=== PATIENT | female | born 1945 | race Caucasian/White ===

== ENCOUNTER 2017-11-19 22:54 | Emergency (ER) | payer MEDICARE, OTHER ==
[~2017-11-19] VITALS: Ht 160 cm; Wt 72.6 kg
[~2017-11-19 22:54] MED LIST: ACET325; ACET325 PO; ALBU90OI INH; ALBU90OI61 INH; ALLERGY RELIEF10 MG PO; ALLO100; ALPR.5 PO; AMOCLA500 PO; AMOCLA875 PO; BISA5EC PO; Bacid1 EACH PO; CALC.25 PO; CALCAVITD PO; CEFU250 PO; CEPH500 PO; CETI5 PO; CHOL10002; CHOL10002 PO; CIPR250 PO; CIPR500 PO; CYAN1000I IM; CYCL10 PO; DOCU100; DOCU100 PO; DOXY100 PO; DOXY100T53 PO; FENT50TP TOP; FLUO.025TO TOP; FURO40; FURO40 PO; GABA300 PO; GATI5OPSO OD; GUAI600T33 PO; Humalog100 UNIT/1; IBUP800 PO; INS70/30PN SC; INSDET100 SC; INSLI100I; INSU7030P; INSU7030P SC; INSU7030P SS; INSULANI; INSULANI SC; INSULANPEN SC; KETO15TC; LAVAP17G PO; LEVFLO250 PO; LEVFLO500 PO; LEVO750 PO; LEVOCETIRIZINE D5 MG PO; LEVOFLOXACIN500 MG PO; LIDO5TP TOP; LOSA50 PO; Lantus100 UNIT/1; METF850; METF850 PO; METH1TAB8 PO; METR500 PO; MINO100 PO; MONT10T; MORP15ER PO; MUPI2TO TOP; NITR100 PO; NYST100P TOP; NYSTATIN TRIAMC TP; NYSTATIN1 EAC1 TOP; NYSTRITC TOP; Norco 5-325 Ta1 EACH PO; Novolog100 UNIT/1 SC; OMEP20ER PO; ONDA4 PO; OXYACE5T PO; OXYC10ER; OXYC10ER PO; OXYC10TA19 PO; OXYC40ER PO; PANT40 PO; PARI1 PO; PENT400ER PO; PERCOCET PO; POTA10T; POTCHL10ER PO; PRED10; PRED10 PO; PREG50 PO; PREG75 PO; Pentoxifylline400 MG PO; Percocet PO; Perforomis20 MCG/2 M IH; Pletal PO; SACC250C PO; SENN187 PO; SILSUL1TC TOP; SPIR25 PO; SPIR50 PO; STOOL SOFTENER50 MG PO; SUPRAX400 MG PO; TIOT18 INH; TRAM50; VENL75; VENL75ER PO; Venlafaxine HCl75 MG PO; WARF3 PO; XYZAL5 MG PO
[2017-11-19] MEDS ORDERED: Pantoprazole So40 MG PO (23:23)
[2017-11-19] MEDS ORDERED: ASPI81CH PO (23:23)
[2017-11-19] MEDS ORDERED: ALBU90OI61 INH (23:24)
[2017-11-19 23:28] LABS: Source, Urine Catheter
[2017-11-19 23:42] LABS: BASOPHILS ABSOLUTE AUTO 0.02 K/mm3 (0.00-0.23); BASOPHILS PERCENT AUTO 0 % (0-2); EOSINOPHILS PERCENT AUTO 3 % (0-6); Hematocrit 43.5 % (33.0-51.0); Hemoglobin 13.9 g/dL (11.5-16.0); IMMATURE GRAN ABSOLUTE AUTO 0.02 K/mm3 (0.00-0.10); IMMATURE GRAN PERCENT AUTO 0 % (0-1); LYMPHOCYTES ABSOLUTE AUTO 1.77 K/mm3 (0.84-5.20); LYMPHOCYTES PERCENT AUTO 23 % (21-46); MONOCYTES PERCENT AUTO 5 % (4-13); Mean Corpuscular HGB 29.1 pg (26.0-34.0); Mean Corpuscular Volume 91 fL (80-100); NEUTROPHILS ABSOLUTE AUTO 5.47 K/mm3 (1.96-9.15); NEUTROPHILS PERCENT AUTO 69 % (41-73); Platelet Count 219 K/mm3 (150-400); RDW Coefficient Variation 13.9 % (11.7-14.2); RDW Standard Deviation 45.1 fL (35.1-46.3); Red Blood Cell Count 4.77 M/mm3 (3.80-5.20); White Blood Cell Count 7.88 K/mm3 (4.00-11.30)
[2017-11-19 23:44] LABS: Bilirubin, Urine Neg (Neg); Blood, Urine 4+ (Neg); Glucose Qualitative, Urine 3+ (Neg); Ketones, Urine Neg (Neg); Leukocyte Esterase, Urine 3+ (Neg); Nitrite, Urine Pos (Neg); Protein, Urine 2+ (Neg); Specific Gravity, Urine 1.015 (1.003-1.022); Urobilinogen, Urine NORM (Normal); pH, Urine 6.5 (5.0-8.0)
[2017-11-19 23:45] LABS: Appearance, Urine Hazy (Clear); Color, Urine Yellow (P-Yellow)
[2017-11-19 23:47] LABS: Albumin, Blood 3.3 g/dL (3.4-5.0); Albumin/Globulin Ratio 0.7 (0.8-1.8); Bilirubin, Total 0.3 mg/dL (0.1-1.0); Bun/Creatinine Ratio 29.7 (12.0-20.0); Calcium, Blood 9.1 mg/dL (8.5-10.1); Creatinine, Blood 1.11 mg/dL (0.40-1.00); Globulin, Blood 4.5 g/dL (2.2-4.0); Total Protein, Blood 7.8 g/dL (6.4-8.2)
[2017-11-19 23:57] LABS: Bacteria Many /hpf; Red Blood Cells, Urine 0-2 /hpf (0-2); Squamous Epithelial Cells Rare /hpf (Few); White Blood Cells, Urine TNTC /hpf (0-5)
[2017-11-20] MEDS ORDERED: CEPH500 PO (01:30)
[2018-04-25] MEDS ORDERED: Xyzal5 MG PO (13:58)
== END 2017-11-20 02:57 | disposition home or self-care (01) ==
LOC: ER 22:54
PROVIDERS: Emergency Medicine
DX: N39.0 Urinary tract infection, site not specified (principal); E11.9 Type 2 diabetes mellitus without complications; Z90.49 Acquired absence of other specified parts of digestive tract; Z90.710 Acquired absence of both cervix and uterus; Z87.891 Personal history of nicotine dependence; Z88.0 Allergy status to penicillin; Z88.8 Allergy status to other drugs, medicaments and biological substances; Z88.1 Allergy status to other antibiotic agents; Z79.4 Long term (current) use of insulin; Z79.82 Long term (current) use of aspirin; Z79.899 Other long term (current) drug therapy
CPT/HCPCS: 36415; 80053; 81001; 85025; 87077; 87086; 87186; 96365; 99283; J0696

== ENCOUNTER → 2017-11-23 | Outpatient (CLI) | payer MEDICARE, OTHER ==
[~2017-11-23] MED LIST changes: +ASPI81CH PO; +Aspirin EC81 MG PO; +BUME2 PO; +Bactrim Ds Tab1 EACH PO; +Biscolax10 MG PR; +FERRIC CITRATE210 MG PO; +FLUC100 PO; +HUMALOG KW200 UNIT/1; +INSU100I6 SC; +Milk Of Ma400 MG/5 M PO; +Pantoprazole So40 MG PO; +TRIM100 PO; +Xyzal5 MG PO
== END | disposition home or self-care (01) ==
LOC: LAB 16:26
DX: L03.116 Cellulitis of left lower limb (principal)
CPT/HCPCS: 87070; 87075; 87077; 87147; 87186; 87205

== ENCOUNTER 2017-11-27 18:48 | Inpatient (IN) | payer MEDICARE, OTHER ==
[~2017-11-27] VITALS: Ht 160 cm; Wt 84.4 kg
[~2017-11-27 18:48] MED LIST changes: -Aspirin EC81 MG PO; -BUME2 PO; -Bactrim Ds Tab1 EACH PO; -Biscolax10 MG PR; -FERRIC CITRATE210 MG PO; -FLUC100 PO; -HUMALOG KW200 UNIT/1; -INSU100I6 SC; -Milk Of Ma400 MG/5 M PO; -TRIM100 PO; -Xyzal5 MG PO
[2017-11-27 19:31] LABS: Source, Urine Catheter
[2017-11-27 19:32] LABS: BASOPHILS ABSOLUTE AUTO 0.04 K/mm3 (0.00-0.23); BASOPHILS PERCENT AUTO 1 % (0-2); EOSINOPHILS PERCENT AUTO 4 % (0-6); Hematocrit 43.9 % (33.0-51.0); Hemoglobin 13.9 g/dL (11.5-16.0); IMMATURE GRAN ABSOLUTE AUTO 0.02 K/mm3 (0.00-0.10); IMMATURE GRAN PERCENT AUTO 0 % (0-1); LYMPHOCYTES ABSOLUTE AUTO 1.81 K/mm3 (0.84-5.20); LYMPHOCYTES PERCENT AUTO 25 % (21-46); MONOCYTES ABSOLUTE AUTO 0.63 K/mm3 (0.16-1.47); MONOCYTES PERCENT AUTO 9 % (4-13); Mean Corpuscular HGB 28.9 pg (26.0-34.0); Mean Corpuscular HGB Conc 31.7 g/dL (31.5-36.5); Mean Corpuscular Volume 91 fL (80-100); Mean Platelet Volume 10.2 fL (9.1-12.4); NEUTROPHILS ABSOLUTE AUTO 4.44 K/mm3 (1.96-9.15); NEUTROPHILS PERCENT AUTO 61 % (41-73); Platelet Count 189 K/mm3 (150-400); RDW Coefficient Variation 13.9 % (11.7-14.2); RDW Standard Deviation 46.6 fL (35.1-46.3); Red Blood Cell Count 4.81 M/mm3 (3.80-5.20); White Blood Cell Count 7.24 K/mm3 (4.00-11.30)
[2017-11-27 19:33] LABS: Appearance, Urine Hazy (Clear); Bilirubin, Urine Neg (Neg); Blood, Urine 3+ (Neg); Color, Urine Yellow (P-Yellow); Glucose Qualitative, Urine 4+ (Neg); Ketones, Urine 1+ (Neg); Leukocyte Esterase, Urine 3+ (Neg); Nitrite, Urine Pos (Neg); Protein, Urine 1+ (Neg); Urobilinogen, Urine NORM (Normal)
[2017-11-27 19:50] LABS: Influenza A Negative (NEGATIVE); Influenza B Negative (NEGATIVE)
[2017-11-27 19:54] LABS: White Blood Cells, Urine 25-50 /hpf (0-5)
[2017-11-27 19:55] LABS: Bacteria Many /hpf; Squamous Epithelial Cells Rare /hpf (Few); Yeast/Fungi Urine Many /hpf
[2017-11-27 19:57] LABS: Albumin, Blood 3.1 g/dL (3.4-5.0); Albumin/Globulin Ratio 0.7 (0.8-1.8); Bilirubin, Total 0.4 mg/dL (0.1-1.0); Bun/Creatinine Ratio 31.7 (12.0-20.0); Creatinine, Blood 1.04 mg/dL (0.40-1.00); Globulin, Blood 4.4 g/dL (2.2-4.0); Potassium, Blood 5.6 mmol/L (3.5-5.5); Total Protein, Blood 7.5 g/dL (6.4-8.2)
[2017-11-28 04:52] LABS: BASOPHILS ABSOLUTE AUTO 0.04 K/mm3 (0.00-0.23); BASOPHILS PERCENT AUTO 1 % (0-2); EOSINOPHILS ABSOLUTE AUTO 0.17 K/mm3 (0.00-0.68); EOSINOPHILS PERCENT AUTO 2 % (0-6); Hematocrit 39.7 % (33.0-51.0); Hemoglobin 12.3 g/dL (11.5-16.0); IMMATURE GRAN ABSOLUTE AUTO 0.04 K/mm3 (0.00-0.10); IMMATURE GRAN PERCENT AUTO 1 % (0-1); LYMPHOCYTES PERCENT AUTO 21 % (21-46); MONOCYTES ABSOLUTE AUTO 0.48 K/mm3 (0.16-1.47); MONOCYTES PERCENT AUTO 6 % (4-13); Mean Corpuscular HGB 28.3 pg (26.0-34.0); Mean Corpuscular Volume 92 fL (80-100); NEUTROPHILS ABSOLUTE AUTO 5.62 K/mm3 (1.96-9.15); NEUTROPHILS PERCENT AUTO 70 % (41-73); Platelet Count 174 K/mm3 (150-400); RDW Coefficient Variation 13.4 % (11.7-14.2); RDW Standard Deviation 45.4 fL (35.1-46.3); Red Blood Cell Count 4.34 M/mm3 (3.80-5.20); White Blood Cell Count 8.05 K/mm3 (4.00-11.30)
[2017-11-28 05:33] LABS: Alanine Aminotransfer (ALT/SGP 18 U/L (12-78); Albumin, Blood 2.7 g/dL (3.4-5.0); Albumin/Globulin Ratio 0.7 (0.8-1.8); Alk Phos 107 U/L (50-136); Anion Gap 6 mmol/L (6-16); Aspartate Aminotrans (AST/SGOT 16 U/L (12-37); Bilirubin, Total 0.2 mg/dL (0.1-1.0); Blood Urea Nitrogen 29 mg/dL (8-24); Bun/Creatinine Ratio 30.5 (12.0-20.0); CO2, Blood 28 mmol/L (21-32); Chloride, Blood 106 mmol/L (98-108); Creatinine, Blood 0.95 mg/dL (0.40-1.00); Gentamicin, Peak 18.3 ug/mL (4.0-8.0); Globulin, Blood 3.8 g/dL (2.2-4.0); Glomerular Filtration Rate >60 (60-); Glucose, Blood 325 mg/dL (70-99); Potassium, Blood 4.1 mmol/L (3.5-5.5); Sodium, Blood 140 mmol/L (136-145); Total Protein, Blood 6.5 g/dL (6.4-8.2)
[2017-11-29 06:08] LABS: BASOPHILS ABSOLUTE AUTO 0.04 K/mm3 (0.00-0.23); BASOPHILS PERCENT AUTO 1 % (0-2); EOSINOPHILS ABSOLUTE AUTO 0.14 K/mm3 (0.00-0.68); EOSINOPHILS PERCENT AUTO 2 % (0-6); Hemoglobin 14.2 g/dL (11.5-16.0); IMMATURE GRAN ABSOLUTE AUTO 0.02 K/mm3 (0.00-0.10); IMMATURE GRAN PERCENT AUTO 0 % (0-1); LYMPHOCYTES ABSOLUTE AUTO 1.47 K/mm3 (0.84-5.20); LYMPHOCYTES PERCENT AUTO 17 % (21-46); MONOCYTES ABSOLUTE AUTO 0.54 K/mm3 (0.16-1.47); MONOCYTES PERCENT AUTO 6 % (4-13); Mean Corpuscular HGB Conc 32.3 g/dL (31.5-36.5); Mean Corpuscular Volume 90 fL (80-100); Mean Platelet Volume 10.1 fL (9.1-12.4); NEUTROPHILS ABSOLUTE AUTO 6.28 K/mm3 (1.96-9.15); NEUTROPHILS PERCENT AUTO 74 % (41-73); Platelet Count 210 K/mm3 (150-400); RDW Coefficient Variation 13.8 % (11.7-14.2); RDW Standard Deviation 44.9 fL (35.1-46.3); Red Blood Cell Count 4.89 M/mm3 (3.80-5.20); White Blood Cell Count 8.49 K/mm3 (4.00-11.30)
[2017-11-29 06:24] LABS: Bun/Creatinine Ratio 18.5 (12.0-20.0); Calcium, Blood 8.8 mg/dL (8.5-10.1); Creatinine, Blood 1.08 mg/dL (0.40-1.00); Potassium, Blood 3.7 mmol/L (3.5-5.5)
[2017-11-29 20:25] LABS: Vancomycin, Trough 16.4 ug/mL (5.0-10.0)
[2017-12-01] MEDS ORDERED: SPIR25 PO (15:00)
[2017-12-01] MEDS ORDERED: LEVFLO500 PO (15:01)
[2017-12-01] MEDS ORDERED: VENL75ER PO (15:01)
[2017-12-01 15:22] LABS: Bun/Creatinine Ratio 20.6 (12.0-20.0); Calcium, Blood 8.7 mg/dL (8.5-10.1); Creatinine, Blood 1.36 mg/dL (0.40-1.00); Potassium, Blood 3.9 mmol/L (3.5-5.5)
[2018-04-25] MEDS ORDERED: Xyzal5 MG PO (13:58)
== END 2017-12-01 18:25 | disposition home health service (06) | DRG 698 ==
LOC: ER 18:48 → MEDS 21:14 → PCU 21:14 → MEDS 11-28 01:31 → PCU 11-28 01:43 → MEDS 11-28 10:59 → ENPENDDIS 12-01 13:48 → MEDS 12-01 18:25
PROVIDERS: Emergency Medicine; Family Medicine; Hospitalist; Internal Medicine
DX: T83.511A Infection and inflammatory reaction due to indwelling urethral catheter, initial encounter (principal); A41.9 Sepsis, unspecified organism; G93.40 Encephalopathy, unspecified; L03.115 Cellulitis of right lower limb; E87.5 Hyperkalemia; E11.40 Type 2 diabetes mellitus with diabetic neuropathy, unspecified; E11.22 Type 2 diabetes mellitus with diabetic chronic kidney disease; L03.116 Cellulitis of left lower limb; N39.0 Urinary tract infection, site not specified; B95.8 Unspecified staphylococcus as the cause of diseases classified elsewhere; B95.2 Enterococcus as the cause of diseases classified elsewhere; B96.5 Pseudomonas (aeruginosa) (mallei) (pseudomallei) as the cause of diseases classified elsewhere; I12.9 Hypertensive chronic kidney disease with stage 1 through stage 4 chronic kidney disease, or unspecified chronic kidney disease; N18.3 Chronic kidney disease, stage 3 (moderate); E11.621 Type 2 diabetes mellitus with foot ulcer; L97.509 Non-pressure chronic ulcer of other part of unspecified foot with unspecified severity; F03.90 Unspecified dementia, unspecified severity, without behavioral disturbance, psychotic disturbance, mood disturbance, and anxiety; G89.4 Chronic pain syndrome; Z87.440 Personal history of urinary (tract) infections; Z88.1 Allergy status to other antibiotic agents; Z88.0 Allergy status to penicillin; Z88.8 Allergy status to other drugs, medicaments and biological substances; Z79.82 Long term (current) use of aspirin; Z79.4 Long term (current) use of insulin; Z79.899 Other long term (current) drug therapy; Z86.73 Personal history of transient ischemic attack (TIA), and cerebral infarction without residual deficits; Z86.718 Personal history of other venous thrombosis and embolism
CPT/HCPCS: 36415; 71046; 80048; 80053; 80170; 80202; 81001; 82947; 83036; 83605; 85025; 87040; 87077; 87086; 87184; 87186; 87804; 94760; 96365; 96366; 97116; 97162; 99285; G8978; G8979; J0690; J0692; J1580; J1650; J1815; J2405; J3370; J7030; J7050

== ENCOUNTER 2017-12-20 14:04 | Emergency (ER) | payer MEDICARE, OTHER ==
[~2017-12-20] VITALS: Ht 157.5 cm; Wt 86.2 kg
[2017-12-20 15:30] LABS: Calcium, Ionized (POC) 1.09 mmol/L (1.10-1.46); Chloride (POC) 101 mmol/L (98-108); Creatinine (POC) 1.4 mg/dL (0.6-1.0); Glucose (ISTAT POC) 237 mg/dL (70-99); Hemoglobin (POC) 13.9 g/dL (12.0-16.0); Potassium (POC) 4.5 mmol/L (3.5-5.5); Sodium (POC) 140 mmol/L (135-148); Total CO2 (POC) 29 mmol/L (21-32)
[2018-04-25] MEDS ORDERED: Xyzal5 MG PO (13:58)
== END 2017-12-20 17:33 | disposition home or self-care (01) ==
LOC: ER 14:04
PROVIDERS: Emergency Medicine
DX: M54.6 Pain in thoracic spine (principal); F03.90 Unspecified dementia, unspecified severity, without behavioral disturbance, psychotic disturbance, mood disturbance, and anxiety; L89.312 Pressure ulcer of right buttock, stage 2; L97.229 Non-pressure chronic ulcer of left calf with unspecified severity; E11.9 Type 2 diabetes mellitus without complications; Z88.0 Allergy status to penicillin; Z88.1 Allergy status to other antibiotic agents; Z88.8 Allergy status to other drugs, medicaments and biological substances; Z79.899 Other long term (current) drug therapy; Z79.82 Long term (current) use of aspirin; Z79.4 Long term (current) use of insulin; Z90.710 Acquired absence of both cervix and uterus; Z90.49 Acquired absence of other specified parts of digestive tract; Z87.891 Personal history of nicotine dependence; W19.XXXA Unspecified fall, initial encounter; Y93.E1 Activity, personal bathing and showering
CPT/HCPCS: 72072; 72100; 72125; 80047; 85014; 93005; 93010; 99284

== ENCOUNTER → 2018-02-03 | Outpatient (CLI) | payer MEDICARE, OTHER ==
[~2018-02-03] MED LIST changes: +INSUASPI SC; -Novolog100 UNIT/1 SC
== END | disposition home or self-care (01) ==
LOC: LAB SHORT 13:13 → OLS 13:13
DX: A49.01 Methicillin susceptible Staphylococcus aureus infection, unspecified site (principal)
CPT/HCPCS: 87070; 87077; 87147; 87186; 87205

== ENCOUNTER 2018-02-05 17:20 | Emergency (ER) | payer MEDICARE, OTHER ==
[~2018-02-05] VITALS: Ht 154.9 cm; Wt 90.7 kg
== END 2018-02-05 21:07 | disposition home or self-care (01) ==
LOC: ER 17:20
DX: S00.01XA Abrasion of scalp, initial encounter (principal); M25.552 Pain in left hip; E11.40 Type 2 diabetes mellitus with diabetic neuropathy, unspecified; E11.22 Type 2 diabetes mellitus with diabetic chronic kidney disease; N18.9 Chronic kidney disease, unspecified; K21.9 Gastro-esophageal reflux disease without esophagitis; F32.9 Major depressive disorder, single episode, unspecified; Z88.0 Allergy status to penicillin; Z88.1 Allergy status to other antibiotic agents; Z88.8 Allergy status to other drugs, medicaments and biological substances; Z79.899 Other long term (current) drug therapy; Z79.82 Long term (current) use of aspirin; Z79.4 Long term (current) use of insulin; Z87.891 Personal history of nicotine dependence; W01.0XXA Fall on same level from slipping, tripping and stumbling without subsequent striking against object, initial encounter; Y92.002 Bathroom of unspecified non-institutional (private) residence as the place of occurrence of the external cause
CPT/HCPCS: 36415; 70450; 72125; 73502; 93005; 93010; 99284

== ENCOUNTER 2018-03-01 14:14 | Emergency (ER) | payer MEDICARE, OTHER ==
[~2018-03-01] VITALS: Ht 167.6 cm; Wt 90.7 kg
[2018-03-01 15:22] LABS: BASOPHILS ABSOLUTE AUTO 0.03 K/mm3 (0.00-0.23); BASOPHILS PERCENT AUTO 0 % (0-2); EOSINOPHILS ABSOLUTE AUTO 0.45 K/mm3 (0.00-0.68); EOSINOPHILS PERCENT AUTO 4 % (0-6); Hematocrit 37.8 % (33.0-51.0); Hemoglobin 11.6 g/dL (11.5-16.0); IMMATURE GRAN ABSOLUTE AUTO 0.05 K/mm3 (0.00-0.10); IMMATURE GRAN PERCENT AUTO 1 % (0-1); LYMPHOCYTES ABSOLUTE AUTO 1.19 K/mm3 (0.84-5.20); LYMPHOCYTES PERCENT AUTO 12 % (21-46); MONOCYTES ABSOLUTE AUTO 0.61 K/mm3 (0.16-1.47); MONOCYTES PERCENT AUTO 6 % (4-13); Mean Corpuscular HGB 29.3 pg (26.0-34.0); Mean Corpuscular HGB Conc 30.7 g/dL (31.5-36.5); Mean Corpuscular Volume 96 fL (80-100); NEUTROPHILS ABSOLUTE AUTO 7.92 K/mm3 (1.96-9.15); NEUTROPHILS PERCENT AUTO 77 % (41-73); Platelet Count 239 K/mm3 (150-400); RDW Coefficient Variation 15.9 % (11.7-14.2); RDW Standard Deviation 54.2 fL (35.1-46.3); Red Blood Cell Count 3.96 M/mm3 (3.80-5.20); White Blood Cell Count 10.25 K/mm3 (4.00-11.30)
[2018-03-01 15:40] LABS: Albumin, Blood 3.4 g/dL (3.4-5.0); Albumin/Globulin Ratio 0.7 (0.8-1.8); Bilirubin, Total 0.3 mg/dL (0.1-1.0); Bun/Creatinine Ratio 36.6 (12.0-20.0); Creatinine, Blood 1.34 mg/dL (0.40-1.00); Globulin, Blood 4.7 g/dL (2.2-4.0); Potassium, Blood 4.1 mmol/L (3.5-5.5); Total Protein, Blood 8.1 g/dL (6.4-8.2)
== END 2018-03-01 16:55 | disposition home or self-care (01) ==
LOC: ER 14:14
PROVIDERS: Physician Assistant
DX: L89.152 Pressure ulcer of sacral region, stage 2 (principal); Z88.0 Allergy status to penicillin; Z88.1 Allergy status to other antibiotic agents; Z88.8 Allergy status to other drugs, medicaments and biological substances; Z79.899 Other long term (current) drug therapy; Z79.4 Long term (current) use of insulin; Z79.891 Long term (current) use of opiate analgesic; Z79.2 Long term (current) use of antibiotics; E11.40 Type 2 diabetes mellitus with diabetic neuropathy, unspecified; E11.22 Type 2 diabetes mellitus with diabetic chronic kidney disease; N18.9 Chronic kidney disease, unspecified; K21.9 Gastro-esophageal reflux disease without esophagitis; F32.9 Major depressive disorder, single episode, unspecified; Z87.891 Personal history of nicotine dependence
CPT/HCPCS: 36415; 80053; 82272; 82947; 85025; 93005; 93010; 99283

== ENCOUNTER → 2018-04-08 | Outpatient (CLI) | payer MEDICARE, OTHER ==
[2018-04-08 14:23] LABS: Appearance, Urine Turbid (Clear); Bilirubin, Urine Neg (Neg); Blood, Urine 5+ (Neg); Color, Urine Yellow (P-Yellow); Glucose Qualitative, Urine Neg (Neg); Ketones, Urine Neg (Neg); Leukocyte Esterase, Urine 3+ (Neg); Nitrite, Urine Pos (Neg); Protein, Urine 2+ (Neg); Urobilinogen, Urine NORM (Normal)
[2018-04-08 14:40] LABS: White Blood Cells, Urine 25-50 /hpf (0-5); Yeast/Fungi Urine Many /hpf
[2018-04-08 14:41] LABS: Bacteria Many /hpf; Red Blood Cells, Urine TNTC /hpf (0-2); Squamous Epithelial Cells Rare /hpf (Few)
== END ==
LOC: LAB SHORT 13:00 → LAB 13:00
DX: N39.0 Urinary tract infection, site not specified (principal)
CPT/HCPCS: 81001; 87077; 87086; 87186

== ENCOUNTER 2018-04-24 22:29 | Inpatient (IN) | payer MEDICARE, OTHER ==
[~2018-04-24] VITALS: Ht 157.5 cm; Wt 92.0 kg
[~2018-04-24 22:29] MED LIST changes: -INSUASPI SC; +Novolog100 UNIT/1
[2018-04-24 23:51] LABS: BASOPHILS ABSOLUTE AUTO 0.03 K/mm3 (0.00-0.23); BASOPHILS PERCENT AUTO 0 % (0-2); EOSINOPHILS ABSOLUTE AUTO 0.03 K/mm3 (0.00-0.68); EOSINOPHILS PERCENT AUTO 0 % (0-6); Hematocrit 38.1 % (33.0-51.0); IMMATURE GRAN ABSOLUTE AUTO 0.04 K/mm3 (0.00-0.10); IMMATURE GRAN PERCENT AUTO 0 % (0-1); LYMPHOCYTES ABSOLUTE AUTO 0.91 K/mm3 (0.84-5.20); LYMPHOCYTES PERCENT AUTO 10 % (21-46); MONOCYTES ABSOLUTE AUTO 0.35 K/mm3 (0.16-1.47); MONOCYTES PERCENT AUTO 4 % (4-13); Mean Corpuscular HGB 28.6 pg (26.0-34.0); Mean Corpuscular HGB Conc 31.5 g/dL (31.5-36.5); NEUTROPHILS ABSOLUTE AUTO 8.19 K/mm3 (1.96-9.15); NEUTROPHILS PERCENT AUTO 86 % (41-73); RDW Coefficient Variation 14.5 % (11.7-14.2); Red Blood Cell Count 4.19 M/mm3 (3.80-5.20); White Blood Cell Count 9.55 K/mm3 (4.00-11.30)
[2018-04-24 23:53] LABS: Mean Corpuscular Volume 91 fL (80-100); Mean Platelet Volume 10.4 fL (9.1-12.4); Platelet Count 161 K/mm3 (150-400)
[2018-04-25 00:07] LABS: Albumin, Blood 2.7 g/dL (3.4-5.0); Albumin/Globulin Ratio 0.6 (0.8-1.8); Bilirubin, Total 0.5 mg/dL (0.1-1.0); Bun/Creatinine Ratio 43.7 (12.0-20.0); Creatinine, Blood 1.35 mg/dL (0.40-1.00); Globulin, Blood 4.2 g/dL (2.2-4.0); Potassium, Blood 4.6 mmol/L (3.5-5.5); Total Protein, Blood 6.9 g/dL (6.4-8.2)
[2018-04-25 02:00] LABS: Source, Urine Catheter
[2018-04-25 02:04] LABS: Bilirubin, Urine Neg (Neg); Blood, Urine 1+ (Neg); Glucose Qualitative, Urine 3+ (Neg); Ketones, Urine Neg (Neg); Leukocyte Esterase, Urine 3+ (Neg); Nitrite, Urine Pos (Neg); Protein, Urine 2+ (Neg); Specific Gravity, Urine 1.015 (1.003-1.022); Urobilinogen, Urine NORM (Normal)
[2018-04-25 02:09] LABS: Appearance, Urine Clear (Clear); Color, Urine Yellow (P-Yellow)
[2018-04-25 02:10] LABS: Bacteria Mod /hpf; Red Blood Cells, Urine 25-50 /hpf (0-2); Squamous Epithelial Cells Not Seen /hpf (Few); Yeast/Fungi Urine Many /hpf
[2018-04-25 05:21] LABS: BASOPHILS ABSOLUTE AUTO 0.02 K/mm3 (0.00-0.23); BASOPHILS PERCENT AUTO 0 % (0-2); EOSINOPHILS ABSOLUTE AUTO 0.06 K/mm3 (0.00-0.68); EOSINOPHILS PERCENT AUTO 1 % (0-6); Hematocrit 37.6 % (33.0-51.0); Hemoglobin 11.9 g/dL (11.5-16.0); IMMATURE GRAN ABSOLUTE AUTO 0.02 K/mm3 (0.00-0.10); IMMATURE GRAN PERCENT AUTO 0 % (0-1); LYMPHOCYTES ABSOLUTE AUTO 1.36 K/mm3 (0.84-5.20); LYMPHOCYTES PERCENT AUTO 16 % (21-46); MONOCYTES ABSOLUTE AUTO 0.62 K/mm3 (0.16-1.47); MONOCYTES PERCENT AUTO 7 % (4-13); Mean Corpuscular HGB 28.7 pg (26.0-34.0); Mean Corpuscular HGB Conc 31.6 g/dL (31.5-36.5); Mean Corpuscular Volume 91 fL (80-100); Mean Platelet Volume 10.3 fL (9.1-12.4); NEUTROPHILS ABSOLUTE AUTO 6.48 K/mm3 (1.96-9.15); NEUTROPHILS PERCENT AUTO 76 % (41-73); Platelet Count 169 K/mm3 (150-400); RDW Coefficient Variation 14.3 % (11.7-14.2); RDW Standard Deviation 47.7 fL (35.1-46.3); Red Blood Cell Count 4.14 M/mm3 (3.80-5.20); White Blood Cell Count 8.56 K/mm3 (4.00-11.30)
[2018-04-25 05:38] LABS: Bun/Creatinine Ratio 42.6 (12.0-20.0); Calcium, Blood 8.5 mg/dL (8.5-10.1); Creatinine, Blood 1.41 mg/dL (0.40-1.00)
[2018-04-25] MEDS ORDERED: TRIM100 PO (13:56)
[2018-04-25] MEDS ORDERED: FERRIC CITRATE210 MG PO (13:58)
[2018-04-25] MEDS ORDERED: Xyzal5 MG (13:58)
[2018-04-25] MEDS ORDERED: ASPI81CH PO (13:59)
[2018-04-25] MEDS ORDERED: BUME2 PO (14:02)
[2018-04-25 17:00] LABS: U Amphetamine Screen Not Detected; U Barbituate Screen Not Detected; U Benzodiazapine Screen Not Detected; U Buprenorphine Screen Not Detected; U Cannabinoids Screen Not Detected; U Cocaine Screen Not Detected; U Methadone Screen Not Detected; U Methamphetamine Screen Not Detected; U Opiates Screen DETECTED; U Oxycodone Screen Not Detected; U Phencyclidine Screen Not Detected; U Propoxyphene Screen Not Detected
[2018-04-26 04:57] LABS: Bun/Creatinine Ratio 39.7 (12.0-20.0); Calcium, Blood 8.4 mg/dL (8.5-10.1); Creatinine, Blood 1.21 mg/dL (0.40-1.00); Potassium, Blood 3.9 mmol/L (3.5-5.5)
[2018-04-26] MEDS ORDERED: Aspirin EC81 MG PO (14:13)
[2018-04-28 10:58] LABS: BASOPHILS ABSOLUTE AUTO 0.04 K/mm3 (0.00-0.23); BASOPHILS PERCENT AUTO 0 % (0-2); EOSINOPHILS ABSOLUTE AUTO 0.47 K/mm3 (0.00-0.68); EOSINOPHILS PERCENT AUTO 5 % (0-6); Hematocrit 39.1 % (33.0-51.0); Hemoglobin 12.4 g/dL (11.5-16.0); IMMATURE GRAN ABSOLUTE AUTO 0.05 K/mm3 (0.00-0.10); IMMATURE GRAN PERCENT AUTO 1 % (0-1); LYMPHOCYTES ABSOLUTE AUTO 1.95 K/mm3 (0.84-5.20); LYMPHOCYTES PERCENT AUTO 21 % (21-46); MONOCYTES ABSOLUTE AUTO 0.76 K/mm3 (0.16-1.47); MONOCYTES PERCENT AUTO 8 % (4-13); Mean Corpuscular HGB 28.1 pg (26.0-34.0); Mean Corpuscular HGB Conc 31.7 g/dL (31.5-36.5); Mean Corpuscular Volume 89 fL (80-100); NEUTROPHILS ABSOLUTE AUTO 6.13 K/mm3 (1.96-9.15); NEUTROPHILS PERCENT AUTO 65 % (41-73); Platelet Count 192 K/mm3 (150-400); RDW Coefficient Variation 13.7 % (11.7-14.2); RDW Standard Deviation 44.9 fL (35.1-46.3); Red Blood Cell Count 4.41 M/mm3 (3.80-5.20)
[2018-04-28 11:20] LABS: Bun/Creatinine Ratio 22.7 (12.0-20.0); Calcium, Blood 8.7 mg/dL (8.5-10.1); Creatinine, Blood 1.1 mg/dL (0.40-1.00); Potassium, Blood 3.8 mmol/L (3.5-5.5)
== END 2018-04-29 14:05 | disposition home or self-care (01) | DRG 698 ==
LOC: ER 22:29 → ERHOLD 04-25 04:08 → MEDS 04-25 04:08
PROVIDERS: Emergency Medicine; Family Medicine; Hospitalist; Internal Medicine
DX: T83.518A Infection and inflammatory reaction due to other urinary catheter, initial encounter (principal); G92 Toxic encephalopathy; L03.115 Cellulitis of right lower limb; N30.00 Acute cystitis without hematuria; L03.116 Cellulitis of left lower limb; Z79.4 Long term (current) use of insulin; Z98.1 Arthrodesis status; K21.9 Gastro-esophageal reflux disease without esophagitis; F32.9 Major depressive disorder, single episode, unspecified; Z96.0 Presence of urogenital implants; E11.42 Type 2 diabetes mellitus with diabetic polyneuropathy; N18.3 Chronic kidney disease, stage 3 (moderate); E11.22 Type 2 diabetes mellitus with diabetic chronic kidney disease; I12.9 Hypertensive chronic kidney disease with stage 1 through stage 4 chronic kidney disease, or unspecified chronic kidney disease; E78.5 Hyperlipidemia, unspecified; E11.65 Type 2 diabetes mellitus with hyperglycemia; E66.9 Obesity, unspecified; Z68.32 Body mass index [BMI] 32.0-32.9, adult; T40.605A Adverse effect of unspecified narcotics, initial encounter; Y92.9 Unspecified place or not applicable; B96.20 Unspecified Escherichia coli [E. coli] as the cause of diseases classified elsewhere; B96.5 Pseudomonas (aeruginosa) (mallei) (pseudomallei) as the cause of diseases classified elsewhere; Z16.30 Resistance to unspecified antimicrobial drugs; I87.309 Chronic venous hypertension (idiopathic) without complications of unspecified lower extremity; Z86.73 Personal history of transient ischemic attack (TIA), and cerebral infarction without residual deficits; Z86.718 Personal history of other venous thrombosis and embolism; Z87.440 Personal history of urinary (tract) infections
CPT/HCPCS: 36415; 51705; 80048; 80053; 81001; 82947; 85025; 87070; 87077; 87086; 87186; 87205; 92610; 93970; 94760; 96361; 96372; 96374; 96375; 96376; 99285; G8996; G8997; G8998; J0696; J1650; J1815; J2060; J2405; J3010; J3370; J7030; J7050

== ENCOUNTER 2018-05-03 14:58 | Emergency (ER) | payer MEDICARE, OTHER ==
[~2018-05-03] VITALS: Ht 172.7 cm; Wt 90.7 kg
[~2018-05-03 14:58] MED LIST changes: +Aspirin EC81 MG PO; +BUME2 PO; +FERRIC CITRATE210 MG PO; +TRIM100 PO; +Xyzal5 MG
== END 2018-05-03 18:30 | disposition home or self-care (01) ==
LOC: ER 14:58
DX: S01.01XA Laceration without foreign body of scalp, initial encounter (principal); W01.198A Fall on same level from slipping, tripping and stumbling with subsequent striking against other object, initial encounter; Z88.0 Allergy status to penicillin; Z88.1 Allergy status to other antibiotic agents; Z88.8 Allergy status to other drugs, medicaments and biological substances; Z79.899 Other long term (current) drug therapy; Z79.4 Long term (current) use of insulin; Z79.82 Long term (current) use of aspirin; E11.9 Type 2 diabetes mellitus without complications; Z87.891 Personal history of nicotine dependence
CPT/HCPCS: 12001; 70450; 72070; 72100; 72125; 99284

== ENCOUNTER 2018-05-11 11:43 | Inpatient (IN) | payer MEDICARE, OTHER ==
[~2018-05-11] VITALS: Ht 165.1 cm; Wt 83.0 kg
[2018-05-11 12:20] LABS: BASOPHILS ABSOLUTE AUTO 0.04 K/mm3 (0.00-0.23); BASOPHILS PERCENT AUTO 0 % (0-2); EOSINOPHILS ABSOLUTE AUTO 0.18 K/mm3 (0.00-0.68); EOSINOPHILS PERCENT AUTO 2 % (0-6); Hematocrit 40.5 % (33.0-51.0); Hemoglobin 12.3 g/dL (11.5-16.0); IMMATURE GRAN ABSOLUTE AUTO 0.07 K/mm3 (0.00-0.10); IMMATURE GRAN PERCENT AUTO 1 % (0-1); LYMPHOCYTES ABSOLUTE AUTO 1.29 K/mm3 (0.84-5.20); LYMPHOCYTES PERCENT AUTO 13 % (21-46); MONOCYTES ABSOLUTE AUTO 0.51 K/mm3 (0.16-1.47); MONOCYTES PERCENT AUTO 5 % (4-13); Mean Corpuscular HGB 28.1 pg (26.0-34.0); Mean Corpuscular HGB Conc 30.4 g/dL (31.5-36.5); Mean Corpuscular Volume 93 fL (80-100); Mean Platelet Volume 9.6 fL (9.1-12.4); NEUTROPHILS ABSOLUTE AUTO 8.12 K/mm3 (1.96-9.15); NEUTROPHILS PERCENT AUTO 80 % (41-73); Platelet Count 219 K/mm3 (150-400); RDW Coefficient Variation 14.8 % (11.7-14.2); RDW Standard Deviation 49.4 fL (35.1-46.3); Red Blood Cell Count 4.37 M/mm3 (3.80-5.20); White Blood Cell Count 10.21 K/mm3 (4.00-11.30)
[2018-05-11 12:25] LABS: Source, Urine Catheter
[2018-05-11 12:30] LABS: Bilirubin, Urine Neg (Neg); Blood, Urine 3+ (Neg); Glucose Qualitative, Urine Neg (Neg); Ketones, Urine 1+ (Neg); Leukocyte Esterase, Urine 3+ (Neg); Nitrite, Urine Neg (Neg); Protein, Urine 2+ (Neg); Specific Gravity, Urine 1.015 (1.003-1.022); Urobilinogen, Urine NORM (Normal)
[2018-05-11 12:41] LABS: Appearance, Urine Clear (Clear); Color, Urine Yellow (P-Yellow)
[2018-05-11 12:42] LABS: Bacteria Few /hpf; Red Blood Cells, Urine TNTC /hpf (0-2); Squamous Epithelial Cells Not Seen /hpf (Few); White Blood Cells, Urine TNTC /hpf (0-5); Yeast/Fungi Urine Many /hpf
[2018-05-11 12:45] LABS: Albumin, Blood 2.9 g/dL (3.4-5.0); Albumin/Globulin Ratio 0.6 (0.8-1.8); Bilirubin, Total 0.2 mg/dL (0.1-1.0); Bun/Creatinine Ratio 28.7 (12.0-20.0); Calcium, Blood 9.1 mg/dL (8.5-10.1); Creatinine, Blood 1.22 mg/dL (0.40-1.00); Potassium, Blood 4.6 mmol/L (3.5-5.5); Total Protein, Blood 7.9 g/dL (6.4-8.2)
[2018-05-12 05:21] LABS: BASOPHILS ABSOLUTE AUTO 0.02 K/mm3 (0.00-0.23); BASOPHILS PERCENT AUTO 0 % (0-2); EOSINOPHILS ABSOLUTE AUTO 0.17 K/mm3 (0.00-0.68); EOSINOPHILS PERCENT AUTO 2 % (0-6); Hematocrit 40.4 % (33.0-51.0); Hemoglobin 12.4 g/dL (11.5-16.0); IMMATURE GRAN ABSOLUTE AUTO 0.04 K/mm3 (0.00-0.10); IMMATURE GRAN PERCENT AUTO 1 % (0-1); LYMPHOCYTES ABSOLUTE AUTO 1.45 K/mm3 (0.84-5.20); LYMPHOCYTES PERCENT AUTO 18 % (21-46); MONOCYTES ABSOLUTE AUTO 0.57 K/mm3 (0.16-1.47); MONOCYTES PERCENT AUTO 7 % (4-13); Mean Corpuscular HGB 28.1 pg (26.0-34.0); Mean Corpuscular HGB Conc 30.7 g/dL (31.5-36.5); Mean Corpuscular Volume 92 fL (80-100); Mean Platelet Volume 9.5 fL (9.1-12.4); NEUTROPHILS ABSOLUTE AUTO 5.91 K/mm3 (1.96-9.15); NEUTROPHILS PERCENT AUTO 72 % (41-73); Platelet Count 196 K/mm3 (150-400); RDW Coefficient Variation 14.7 % (11.7-14.2); RDW Standard Deviation 48.3 fL (35.1-46.3); Red Blood Cell Count 4.41 M/mm3 (3.80-5.20); White Blood Cell Count 8.16 K/mm3 (4.00-11.30)
[2018-05-12 05:39] LABS: Potassium, Blood 4.2 mmol/L (3.5-5.5)
[2018-05-13] MEDS ORDERED: BUME2 PO (15:23)
[2018-05-13] MEDS ORDERED: FLUC100 PO (15:24)
== END 2018-05-14 13:06 | DRG 92 ==
LOC: ER 11:43 → MEDS 14:09 → ENPENDDIS 05-13 16:09 → EDPENDDIS 05-13 16:09 → EDPENDDISTM 05-14 09:35 → EDPENDDIS 05-14 09:35 → EDPENDDISDT 05-14 09:35 → MEDS 05-14 13:06
PROVIDERS: Emergency Medicine; Internal Medicine
DX: G92 Toxic encephalopathy (principal); T83.511A Infection and inflammatory reaction due to indwelling urethral catheter, initial encounter; L97.929 Non-pressure chronic ulcer of unspecified part of left lower leg with unspecified severity; M48.56XA Collapsed vertebra, not elsewhere classified, lumbar region, initial encounter for fracture; I87.332 Chronic venous hypertension (idiopathic) with ulcer and inflammation of left lower extremity; L97.829 Non-pressure chronic ulcer of other part of left lower leg with unspecified severity; J44.9 Chronic obstructive pulmonary disease, unspecified; E11.22 Type 2 diabetes mellitus with diabetic chronic kidney disease; E11.622 Type 2 diabetes mellitus with other skin ulcer; L89.152 Pressure ulcer of sacral region, stage 2; N30.90 Cystitis, unspecified without hematuria; N18.3 Chronic kidney disease, stage 3 (moderate); D63.1 Anemia in chronic kidney disease; F03.90 Unspecified dementia, unspecified severity, without behavioral disturbance, psychotic disturbance, mood disturbance, and anxiety; I12.9 Hypertensive chronic kidney disease with stage 1 through stage 4 chronic kidney disease, or unspecified chronic kidney disease; M54.9 Dorsalgia, unspecified; G47.33 Obstructive sleep apnea (adult) (pediatric); E78.5 Hyperlipidemia, unspecified; F32.9 Major depressive disorder, single episode, unspecified; G89.29 Other chronic pain; Z96.0 Presence of urogenital implants; B37.2 Candidiasis of skin and nail; T40.605A Adverse effect of unspecified narcotics, initial encounter; E66.9 Obesity, unspecified; Z86.73 Personal history of transient ischemic attack (TIA), and cerebral infarction without residual deficits; Z87.440 Personal history of urinary (tract) infections; Z86.718 Personal history of other venous thrombosis and embolism; Z88.8 Allergy status to other drugs, medicaments and biological substances; Z88.1 Allergy status to other antibiotic agents; Z88.0 Allergy status to penicillin; Z79.899 Other long term (current) drug therapy; Z79.82 Long term (current) use of aspirin; Z79.4 Long term (current) use of insulin; Z98.1 Arthrodesis status; Z90.710 Acquired absence of both cervix and uterus; Z90.49 Acquired absence of other specified parts of digestive tract; Z87.891 Personal history of nicotine dependence
CPT/HCPCS: 36415; 71046; 80048; 80053; 81001; 82947; 85025; 87040; 87070; 87075; 87077; 87086; 87186; 87205; 92526; 92610; 96365; 97163; 97530; 99285-25; G8978; G8979; G8980; G8996; G8997; G8998; J0696; J1650; J1815; J2405; J7120

== ENCOUNTER 2018-06-16 15:48 | Inpatient (IN) | payer MEDICARE, OTHER ==
[~2018-06-16] VITALS: Ht 157.5 cm; Wt 86.1 kg
[~2018-06-16 15:48] MED LIST changes: +FLUC100 PO; -Novolog100 UNIT/1; +Novolog100 UNIT/1 SC; -Xyzal5 MG; +Xyzal5 MG PO
[2018-06-16 16:53] LABS: Source, Urine Catheter
[2018-06-16 16:59] LABS: Appearance, Urine Cloudy (Clear); Bilirubin, Urine Neg (Neg); Blood, Urine 2+ (Neg); Color, Urine Yellow (P-Yellow); Glucose Qualitative, Urine Neg (Neg); Ketones, Urine Neg (Neg); Leukocyte Esterase, Urine 3+ (Neg); Nitrite, Urine Pos (Neg); Protein, Urine 3+ (Neg); Urobilinogen, Urine NORM (Normal)
[2018-06-16 17:11] LABS: White Blood Cells, Urine TNTC /hpf (0-5)
[2018-06-16 17:12] LABS: Bacteria Many /hpf; Squamous Epithelial Cells Not Seen /hpf (Few)
[2018-06-16 18:25] LABS: BASOPHILS ABSOLUTE AUTO 0.04 K/mm3 (0.00-0.23); BASOPHILS PERCENT AUTO 0 % (0-2); EOSINOPHILS ABSOLUTE AUTO 0.34 K/mm3 (0.00-0.68); EOSINOPHILS PERCENT AUTO 3 % (0-6); Hematocrit 40.7 % (33.0-51.0); Hemoglobin 12.7 g/dL (11.5-16.0); IMMATURE GRAN ABSOLUTE AUTO 0.06 K/mm3 (0.00-0.10); IMMATURE GRAN PERCENT AUTO 1 % (0-1); LYMPHOCYTES ABSOLUTE AUTO 1.88 K/mm3 (0.84-5.20); LYMPHOCYTES PERCENT AUTO 18 % (21-46); MONOCYTES ABSOLUTE AUTO 0.76 K/mm3 (0.16-1.47); MONOCYTES PERCENT AUTO 7 % (4-13); Mean Corpuscular HGB Conc 31.2 g/dL (31.5-36.5); Mean Corpuscular Volume 90 fL (80-100); NEUTROPHILS ABSOLUTE AUTO 7.44 K/mm3 (1.96-9.15); NEUTROPHILS PERCENT AUTO 71 % (41-73); Platelet Count 206 K/mm3 (150-400); RDW Coefficient Variation 14.8 % (11.7-14.2); RDW Standard Deviation 48.4 fL (35.1-46.3); Red Blood Cell Count 4.54 M/mm3 (3.80-5.20); White Blood Cell Count 10.52 K/mm3 (4.00-11.30)
[2018-06-16 18:57] LABS: Albumin/Globulin Ratio 0.7 (0.8-1.8); Bilirubin, Total 0.3 mg/dL (0.1-1.0); Bun/Creatinine Ratio 25.2 (12.0-20.0); Calcium, Blood 8.8 mg/dL (8.5-10.1); Creatinine, Blood 1.27 mg/dL (0.40-1.00); Globulin, Blood 4.6 g/dL (2.2-4.0); Potassium, Blood 4.3 mmol/L (3.5-5.5); Total Protein, Blood 7.6 g/dL (6.4-8.2)
[2018-06-16 20:43] LABS: International Normalized Ratio 0.98; Prothrombin Time Results 10.1 Sec (9.7-11.5)
[2018-06-17 05:45] LABS: Hematocrit 36.3 % (33.0-51.0); Hemoglobin 11.2 g/dL (11.5-16.0); Mean Corpuscular HGB 27.4 pg (26.0-34.0); Mean Corpuscular HGB Conc 30.9 g/dL (31.5-36.5); Mean Corpuscular Volume 89 fL (80-100); Mean Platelet Volume 10.1 fL (9.1-12.4); Platelet Count 175 K/mm3 (150-400); RDW Standard Deviation 48.5 fL (35.1-46.3); Red Blood Cell Count 4.09 M/mm3 (3.80-5.20); White Blood Cell Count 8.06 K/mm3 (4.00-11.30)
[2018-06-17 06:10] LABS: Albumin, Blood 2.3 g/dL (3.4-5.0); Albumin/Globulin Ratio 0.6 (0.8-1.8); Bilirubin, Total 0.2 mg/dL (0.1-1.0); Bun/Creatinine Ratio 26.2 (12.0-20.0); Calcium, Blood 7.9 mg/dL (8.5-10.1); Creatinine, Blood 1.03 mg/dL (0.40-1.00); Potassium, Blood 4.4 mmol/L (3.5-5.5); Total Protein, Blood 6.3 g/dL (6.4-8.2)
[2018-06-20] MEDS ORDERED: Bactrim Ds Tab1 EACH PO (11:59)
[2018-06-20] MEDS ORDERED: INSULANPEN SC (12:00)
[2018-06-20] MEDS ORDERED: INSU100I6 SC (12:05)
[2018-06-20] MEDS ORDERED: OXYC10TA19 PO (12:30)
== END 2018-06-20 15:59 | disposition home or self-care (01) | DRG 698 ==
LOC: ER 15:48 → MEDS 19:39 → ENPENDDIS 06-20 11:33 → MEDS 06-20 15:59
PROVIDERS: Emergency Medicine; Internal Medicine
DX: T83.510A Infection and inflammatory reaction due to cystostomy catheter, initial encounter (principal); G93.41 Metabolic encephalopathy; N39.0 Urinary tract infection, site not specified; Z87.891 Personal history of nicotine dependence; Z79.4 Long term (current) use of insulin; Z79.82 Long term (current) use of aspirin; Z98.1 Arthrodesis status; N31.9 Neuromuscular dysfunction of bladder, unspecified; Z86.73 Personal history of transient ischemic attack (TIA), and cerebral infarction without residual deficits; J44.9 Chronic obstructive pulmonary disease, unspecified; I10 Essential (primary) hypertension; E11.65 Type 2 diabetes mellitus with hyperglycemia; I87.309 Chronic venous hypertension (idiopathic) without complications of unspecified lower extremity; F32.9 Major depressive disorder, single episode, unspecified; F03.90 Unspecified dementia, unspecified severity, without behavioral disturbance, psychotic disturbance, mood disturbance, and anxiety; A49.01 Methicillin susceptible Staphylococcus aureus infection, unspecified site; Y92.9 Unspecified place or not applicable; B96.89 Other specified bacterial agents as the cause of diseases classified elsewhere
CPT/HCPCS: 36415; 71046; 80053; 80069; 81001; 82947; 85018; 85025; 85027; 85610; 87077; 87086; 87186; 94760; 96361; 96374; 97116; 97161; 97530; 99285-25; G8978; G8979; J0696; J0713; J1650; J7030

== ENCOUNTER 2018-06-22 12:16 | Emergency (ER) | payer MEDICARE, OTHER ==
[~2018-06-22] VITALS: Ht 167.6 cm; Wt 77.1 kg
[~2018-06-22 12:16] MED LIST changes: +Bactrim Ds Tab1 EACH PO; +INSU100I6 SC
[2018-06-22 12:48] LABS: BASOPHILS ABSOLUTE AUTO 0.05 K/mm3 (0.00-0.23); BASOPHILS PERCENT AUTO 1 % (0-2); EOSINOPHILS ABSOLUTE AUTO 0.59 K/mm3 (0.00-0.68); EOSINOPHILS PERCENT AUTO 6 % (0-6); Hemoglobin 13.8 g/dL (11.5-16.0); IMMATURE GRAN ABSOLUTE AUTO 0.05 K/mm3 (0.00-0.10); IMMATURE GRAN PERCENT AUTO 1 % (0-1); LYMPHOCYTES ABSOLUTE AUTO 2.77 K/mm3 (0.84-5.20); LYMPHOCYTES PERCENT AUTO 26 % (21-46); MONOCYTES ABSOLUTE AUTO 0.62 K/mm3 (0.16-1.47); MONOCYTES PERCENT AUTO 6 % (4-13); Mean Corpuscular HGB 27.3 pg (26.0-34.0); Mean Corpuscular HGB Conc 31.4 g/dL (31.5-36.5); Mean Corpuscular Volume 87 fL (80-100); Mean Platelet Volume 10.1 fL (9.1-12.4); NEUTROPHILS PERCENT AUTO 61 % (41-73); Platelet Count 188 K/mm3 (150-400); RDW Coefficient Variation 15.4 % (11.7-14.2); RDW Standard Deviation 49.1 fL (35.1-46.3); Red Blood Cell Count 5.06 M/mm3 (3.80-5.20); White Blood Cell Count 10.48 K/mm3 (4.00-11.30)
[2018-06-22 13:02] LABS: Calcium, Blood 8.5 mg/dL (8.5-10.1); Creatinine, Blood 1.75 mg/dL (0.40-1.00); Potassium, Blood 4.1 mmol/L (3.5-5.5)
== END 2018-06-22 14:42 | disposition home or self-care (01) ==
LOC: ER 12:16
PROVIDERS: Emergency Medicine
DX: S01.01XA Laceration without foreign body of scalp, initial encounter (principal); E11.65 Type 2 diabetes mellitus with hyperglycemia; M54.2 Cervicalgia; Z88.0 Allergy status to penicillin; Z88.1 Allergy status to other antibiotic agents; Z88.8 Allergy status to other drugs, medicaments and biological substances; Z79.899 Other long term (current) drug therapy; Z79.4 Long term (current) use of insulin; Z79.82 Long term (current) use of aspirin; Z87.891 Personal history of nicotine dependence; W01.0XXA Fall on same level from slipping, tripping and stumbling without subsequent striking against object, initial encounter
CPT/HCPCS: 70450; 72125; 80048; 85025; 96360; 99284-25; J1815; J7030

== ENCOUNTER 2018-07-03 21:22 | Emergency (ER) | payer MEDICARE, OTHER ==
[~2018-07-03] VITALS: Ht 165.1 cm; Wt 122.5 kg
[2018-07-03] MEDS ORDERED: Milk Of Ma400 MG/5 M PO (21:40)
[2018-07-03] MEDS ORDERED: ALPR.5 PO (21:42)
[2018-07-03] MEDS ORDERED: Biscolax10 MG PR (21:42)
[2018-07-03 21:45] LABS: Calcium, Ionized (POC) 1.13 mmol/L (1.10-1.46); Chloride (POC) 97 mmol/L (98-108); Creatinine (POC) 1.6 mg/dL (0.6-1.0); Glucose (ISTAT POC) 368 mg/dL (70-99); Hemoglobin (POC) 10.9 g/dL (12.0-16.0); Potassium (POC) 4.1 mmol/L (3.5-5.5); Sodium (POC) 139 mmol/L (135-148); Total CO2 (POC) 28 mmol/L (21-32)
[2018-07-03] MEDS ORDERED: BUME2 PO (21:46)
[2018-07-03] MEDS ORDERED: HUMALOG KW200 UNIT/1 (21:48)
[2018-07-03 21:51] LABS: BASOPHILS ABSOLUTE AUTO 0.02 K/mm3 (0.00-0.23); BASOPHILS PERCENT AUTO 0 % (0-2); EOSINOPHILS ABSOLUTE AUTO 0.36 K/mm3 (0.00-0.68); EOSINOPHILS PERCENT AUTO 5 % (0-6); Hematocrit 33.7 % (33.0-51.0); Hemoglobin 10.6 g/dL (11.5-16.0); IMMATURE GRAN ABSOLUTE AUTO 0.05 K/mm3 (0.00-0.10); IMMATURE GRAN PERCENT AUTO 1 % (0-1); LYMPHOCYTES ABSOLUTE AUTO 1.81 K/mm3 (0.84-5.20); LYMPHOCYTES PERCENT AUTO 23 % (21-46); MONOCYTES ABSOLUTE AUTO 0.76 K/mm3 (0.16-1.47); MONOCYTES PERCENT AUTO 10 % (4-13); Mean Corpuscular HGB 28.2 pg (26.0-34.0); Mean Corpuscular HGB Conc 31.5 g/dL (31.5-36.5); Mean Platelet Volume 10.2 fL (9.1-12.4); NEUTROPHILS ABSOLUTE AUTO 4.95 K/mm3 (1.96-9.15); NEUTROPHILS PERCENT AUTO 62 % (41-73); Platelet Count 166 K/mm3 (150-400); RDW Coefficient Variation 15.4 % (11.7-14.2); RDW Standard Deviation 50.4 fL (35.1-46.3); Red Blood Cell Count 3.76 M/mm3 (3.80-5.20); White Blood Cell Count 7.95 K/mm3 (4.00-11.30)
[2018-07-03 21:52] LABS: Mean Corpuscular Volume 90 fL (80-100)
[2018-07-03 22:06] LABS: Alanine Aminotransfer (ALT/SGP 100 U/L (12-78); Albumin, Blood 2.6 g/dL (3.4-5.0); Albumin/Globulin Ratio 0.6 (0.8-1.8); Alk Phos 274 U/L (50-136); Anion Gap 7 mmol/L (6-16); Aspartate Aminotrans (AST/SGOT 52 U/L (12-37); Bilirubin, Total 0.2 mg/dL (0.1-1.0); Blood Urea Nitrogen 44 mg/dL (8-24); CO2, Blood 30 mmol/L (21-32); Chloride, Blood 101 mmol/L (98-108); Creatinine, Blood 1.63 mg/dL (0.40-1.00); Globulin, Blood 4.6 g/dL (2.2-4.0); Glomerular Filtration Rate 33 (60-); Glucose, Blood 346 mg/dL (70-99); Potassium, Blood 4.1 mmol/L (3.5-5.5); Sodium, Blood 138 mmol/L (136-145); Total Protein, Blood 7.2 g/dL (6.4-8.2); Troponin I <0.015 ng/mL (0.000-0.040)
[2018-07-03 22:42] LABS: Source, Urine Catheter
[2018-07-03 22:44] LABS: Bilirubin, Urine Neg (Neg); Blood, Urine 1+ (Neg); Glucose Qualitative, Urine 4+ (Neg); Ketones, Urine Neg (Neg); Leukocyte Esterase, Urine 3+ (Neg); Nitrite, Urine Pos (Neg); Protein, Urine 2+ (Neg); Specific Gravity, Urine 1.015 (1.003-1.022); Urobilinogen, Urine NORM (Normal)
[2018-07-03] MEDS ORDERED: MINO100 PO (22:45)
[2018-07-03 22:50] LABS: Appearance, Urine Clear (Clear); Color, Urine Yellow (P-Yellow); White Blood Cells, Urine 50-100 /hpf (0-5)
[2018-07-03 22:51] LABS: Bacteria Many /hpf; Red Blood Cells, Urine 0-2 /hpf (0-2); Squamous Epithelial Cells Not Seen /hpf (Few)
== END 2018-07-03 23:36 | disposition home or self-care (01) ==
LOC: ER 21:22
PROVIDERS: Emergency Medicine
DX: E11.65 Type 2 diabetes mellitus with hyperglycemia (principal); L03.116 Cellulitis of left lower limb; L03.115 Cellulitis of right lower limb; Z88.0 Allergy status to penicillin; Z88.1 Allergy status to other antibiotic agents; Z88.8 Allergy status to other drugs, medicaments and biological substances; Z79.899 Other long term (current) drug therapy; Z79.4 Long term (current) use of insulin; Z79.82 Long term (current) use of aspirin; Z87.891 Personal history of nicotine dependence
CPT/HCPCS: 36415; 71045; 80047; 80053; 81001; 82947; 83880; 84484; 85014; 85025; 87086; 93005; 93010; 99283-25

== ENCOUNTER → 2018-08-08 | Outpatient (CLI) | payer MEDICARE, OTHER ==
[~2018-08-08] MED LIST changes: +Biscolax10 MG PR; +HUMALOG KW200 UNIT/1; +Milk Of Ma400 MG/5 M PO
== END | disposition home or self-care (01) ==
LOC: LAB 10:18 → LAB SHORT 10:18
DX: I83.12 Varicose veins of left lower extremity with inflammation (principal); L08.0 Pyoderma
CPT/HCPCS: 87070; 87077; 87186; 87205

== ENCOUNTER 2018-08-13 20:37 | Emergency (ER) | payer MEDICARE, OTHER ==
[~2018-08-13] VITALS: Ht 152.4 cm; Wt 90.7 kg
[2018-08-13 22:05] LABS: Calcium, Ionized (POC) 1.23 mmol/L (1.10-1.46); Chloride (POC) 102 mmol/L (98-108); Creatinine (POC) 1.6 mg/dL (0.6-1.0); Glucose (ISTAT POC) 143 mg/dL (70-99); Hemoglobin (POC) 12.2 g/dL (12.0-16.0); Sodium (POC) 143 mmol/L (135-148); Total CO2 (POC) 33 mmol/L (21-32)
== END 2018-08-13 22:40 | disposition home or self-care (01) ==
LOC: ER 20:37
PROVIDERS: Emergency Medicine
DX: F43.21 Adjustment disorder with depressed mood (principal); R11.0 Nausea; E11.9 Type 2 diabetes mellitus without complications; Z88.0 Allergy status to penicillin; Z88.1 Allergy status to other antibiotic agents; Z88.8 Allergy status to other drugs, medicaments and biological substances; Z79.899 Other long term (current) drug therapy; Z79.4 Long term (current) use of insulin; Z79.51 Long term (current) use of inhaled steroids; Z79.82 Long term (current) use of aspirin; Z87.891 Personal history of nicotine dependence
CPT/HCPCS: 36415; 80047; 82947; 85014; 99285

== ENCOUNTER 2019-03-14 01:41 | Inpatient (IN) | payer MEDICARE, OTHER ==
[~2019-03-14] VITALS: Ht 152.4 cm; Wt 96.7 kg
[2019-03-14 01:55] LABS: PCO2 Arterial 61.4 mmHg (35-45); PO2 Arterial 44.7 mmHg (80-100); pH Blood Arterial 7.44 (7.35-7.45)
[2019-03-14 02:07] LABS: BASOPHILS ABSOLUTE AUTO 0.05 K/mm3 (0.00-0.23); BASOPHILS PERCENT AUTO 0 % (0-2); EOSINOPHILS ABSOLUTE AUTO 0.39 K/mm3 (0.00-0.68); EOSINOPHILS PERCENT AUTO 3 % (0-6); Hematocrit 40.7 % (33.0-51.0); Hemoglobin 12.8 g/dL (11.5-16.0); IMMATURE GRAN ABSOLUTE AUTO 0.08 K/mm3 (0.00-0.10); IMMATURE GRAN PERCENT AUTO 1 % (0-1); LYMPHOCYTES ABSOLUTE AUTO 2.09 K/mm3 (0.84-5.20); LYMPHOCYTES PERCENT AUTO 18 % (21-46); MONOCYTES ABSOLUTE AUTO 0.93 K/mm3 (0.16-1.47); MONOCYTES PERCENT AUTO 8 % (4-13); Mean Corpuscular HGB 28.2 pg (26.0-34.0); Mean Corpuscular HGB Conc 31.4 g/dL (31.5-36.5); Mean Corpuscular Volume 90 fL (80-100); Mean Platelet Volume 10.3 fL (9.1-12.4); NEUTROPHILS ABSOLUTE AUTO 7.79 K/mm3 (1.96-9.15); NEUTROPHILS PERCENT AUTO 69 % (41-73); Platelet Count 212 K/mm3 (150-400); RDW Coefficient Variation 14.4 % (11.7-14.2); RDW Standard Deviation 47.1 fL (35.1-46.3); Red Blood Cell Count 4.54 M/mm3 (3.80-5.20); White Blood Cell Count 11.33 K/mm3 (4.00-11.30)
[2019-03-14] MEDS ORDERED: CEFD300 PO (02:22)
[2019-03-14 02:26] LABS: Alanine Aminotransfer (ALT/SGP 21 U/L (12-78); Albumin, Blood 3.1 g/dL (3.4-5.0); Albumin/Globulin Ratio 0.6 (0.8-1.8); Alk Phos 130 U/L (50-136); Anion Gap 8 mmol/L (6-16); Aspartate Aminotrans (AST/SGOT 25 U/L (12-37); Bilirubin, Total 0.3 mg/dL (0.1-1.0); Blood Urea Nitrogen 122 mg/dL (8-24); Bun/Creatinine Ratio 54.2 (12.0-20.0); CO2, Blood 39 mmol/L (21-32); Calcium, Blood 9.5 mg/dL (8.5-10.1); Chloride, Blood 91 mmol/L (98-108); Creatinine, Blood 2.25 mg/dL (0.40-1.00); Globulin, Blood 5.2 g/dL (2.2-4.0); Glomerular Filtration Rate 23 (60-); Glucose, Blood 110 mg/dL (70-99); Potassium, Blood 2.8 mmol/L (3.5-5.5); Sodium, Blood 138 mmol/L (136-145); Total Protein, Blood 8.3 g/dL (6.4-8.2); Troponin I <0.015 ng/mL (0.000-0.040)
[2019-03-14] MEDS ORDERED: Ferrous Sulfat325 M2 PO (02:26)
[2019-03-14] MEDS ORDERED: MORPHINE SULFAT10 MG PO (02:27)
[2019-03-14] MEDS ORDERED: Novolin R100 UNIT/M (02:27)
[2019-03-14] MEDS ORDERED: Micro-K10 MEQ PO (02:29)
[2019-03-14] MEDS ORDERED: ACET325 PO (02:30)
[2019-03-14] MEDS ORDERED: ONDA4ODT MM (02:31)
[2019-03-14] MEDS ORDERED: BENZ100A PO (02:36)
[2019-03-14] MEDS ORDERED: ALPR.5 PO (02:36)
[2019-03-14] MEDS ORDERED: CEPACOL SORE T1 EACH MM (02:37)
[2019-03-14] MEDS ORDERED: VITAMIN D32000 UNI1 PO (02:38)
[2019-03-14] MEDS ORDERED: SERT50 PO (02:39)
[2019-03-14] MEDS ORDERED: INSULANPEN SC (02:40)
[2019-03-14] MEDS ORDERED: Xyzal5 MG PO (02:41)
[2019-03-14] MEDS ORDERED: METO2.5 PO (02:41)
[2019-03-14] MEDS ORDERED: Pedi-Dri 100,0060 GM TOP (05:43)
[2019-03-14] MEDS ORDERED: (None)15 G1 EXT (05:45)
[2019-03-14] MEDS ORDERED: Novolog100 UNIT/1 SC (05:56)
[2019-03-14] MEDS ORDERED: MIRALAX17 GM PO (05:58)
[2019-03-14] MEDS ORDERED: GABA300 PO (06:03)
[2019-03-14] MEDS ORDERED: DOCU100 PO (06:12)
--- NOTE | 2019-03-14 06:16 | NUR ---
ARIVAL AND SHIFT SUMMARY PT ARRIVED TO UNIT APPROX. 0500 FROM ED VIA GURNERY. PT WAS TRANSFERED OVER TO BED BY STAFF. PT ORIENTED TO UNIT, POLICIES, AND ROOM. ASSESSMENT COMPLETED. ADDMISSION PROCESS COMPLETED TO BEST OF ABILITY PT UNABLE TO REPORT ANY OF HER OWN HISTORY AND MEDS. PT A&O X2. PT QUINAULT. ABLE TO ANSWER QUESTIONS BUT AT TIMES HAD A HARD TIME FOLLOWING CONVERSATIONS. OCCASIONAL HAD TO REPEAT DIRECTIONS FOR PT TO FOLLOW. ON ARRIVAL PT UNDERGARMENTS WERE SOAKED. STAFF CLEANED PT UP AND GOT PT CLEAN UNDERPANTS. SUPRAPUBIC CATHERTER IN PLACE, AREA AROUND INCERION SITE CLEANED, SOME REDNESS NOTED HERE. PT BUTTOCKS AND COCCYX REDDENED AND A PRESSURE ULCER NOTED ON COCCYX. THIS AREA WAS CLEAN AND MEPILEX WAS PLACED. PT HAS RED, WARM, FLAKY SKIN BILAT BELOW THE KNOW. PT REPORTS THESE AREAS TO BE TENDER. BLE +2 EDEMA NOTED WITH LEFT FOOT SLIGHTLY WORSE THAN RIGHT. PT REPORTS AT HOME BASELINE SHE SPENDS EACH DAY UP IN CHAIR OR WHEELCHAIR AND THEN BACK TO BED. PT DOES NOT WALK AT HOME. GENERALIZED WEAKNESS. PT ON 3L OXYGEN VIA N.C. WITH SATS IN 90'S. BED IN LOW POSTIION, CALL LIGHT IN REACH AND PT DENIES ANY NEEDS AT THIS TIME. WILL CONTINUE TO MONITOR UNTIL HANDOFF TO DAYSHIFT RN.
[2019-03-14 12:45] LABS: Anion Gap 6 mmol/L (6-16); Blood Urea Nitrogen 119 mg/dL (8-24); Bun/Creatinine Ratio 60.7 (12.0-20.0); CO2, Blood 39 mmol/L (21-32); Chloride, Blood 92 mmol/L (98-108); Creatinine, Blood 1.96 mg/dL (0.40-1.00); Glomerular Filtration Rate 26 (60-); Glucose, Blood 230 mg/dL (70-99); Phosphorus, Blood 4.8 mg/dL (2.5-4.9); Potassium, Blood 2.8 mmol/L (3.5-5.5); Sodium, Blood 137 mmol/L (136-145)
[2019-03-14 13:17] LABS: Adenovirus Not Detected (NOT DETECT); Bordetella pertussis Not Detected (NOT DETECT); Chlamydophila pneumoniae Not Detected (NOT DETECT); Coronavirus 229E Not Detected (NOT DETECT); Coronavirus HKU1 Not Detected (NOT DETECT); Coronavirus NL63 Not Detected (NOT DETECT); Coronavirus OC43 Not Detected (NOT DETECT); Human Metapneumovirus Not Detected (NOT DETECT); Human Rhinovirus/Enterovirus Not Detected (NOT DETECT); Influenza A Not Detected (NOT DETECT); Influenza A/2009-H1 Not Detected (NOT DETECT); Influenza A/H1 Not Detected (NOT DETECT); Influenza A/H3 Not Detected (NOT DETECT); Influenza B Not Detected (NOT DETECT); Mycoplasma pneumoniae Not Detected (NOT DETECT); Parainfluenza Virus 1 Not Detected (NOT DETECT); Parainfluenza Virus 2 Not Detected (NOT DETECT); Parainfluenza Virus 3 Not Detected (NOT DETECT); Parainfluenza Virus 4 Not Detected (NOT DETECT); Respiratory Syncytial Virus Not Detected (NOT DETECT)
--- NOTE | 2019-03-14 17:29 | NUR ---
SHIFT SUMMARY PT RESTING IN BED THROUGHOUT THE DAY. VSS. ALERT AND ORIENTED TO SELF AND PLACE, FOLLOWING COMMANDS APPROPRIATELY. VERY HARD OF HEARING AND SOME CONFUSION. DENIES PAIN THROUGHOUT THE DAY. SLEEPING OFF AND ON. LUNG SOUNDS COARSE THROUGHOUT, DIMINISHED BASES. NSR WITH BBB ON TELEMETRY RATE 67. WHILE VISITING THE PT THIS AM, PT BECAME TEARFUL, STATES SHE WAS THINKING ABOUT HER WHO ALMOST A YEAR AGO. SUPRAPUBIC CATHETER DRAINING YELLOW URINE. BLE WARM TO TOUCH, REDNESS, SWELLING NOTED. REDNESS UNDER PANNUS AND AROUND SUPRAPUBIC CATHETER. WILL CONTINUE TO MONITOR.
--- NOTE | 2019-03-14 22:16 | NUR ---
PCU NIGHTSHIFT ASSUMED CARE OF PT APPROX. 1900. PT A&O X2. PT [place]. ABLE TO ANSWER QUESTIONS BUT AT TIMES HAD A HARD TIME FOLLOWING CONVERSATIONS. PT FORGETFUL AT TIMES. VITAL SIGNS STABLE. ASSESSMENT COMPLETED. OCCASIONALLY HAD TO REPEAT DIRECTIONS FOR PT TO FOLLOW. SUPRAPUBIC CATHERTER IN PLACE. PT HAS RED, WARM, FLAKY SKIN BILAT BELOW THE KNOW. PT REPORTS THESE AREAS TO BE TENDER. BLE +2 EDEMA NOTED WITH LEFT FOOT SLIGHTLY WORSE THAN RIGHT. PT REPORTS AT HOME BASELINE SHE SPENDS EACH DAY UP IN CHAIR OR WHEELCHAIR AND THEN BACK TO BED. PT DOES NOT WALK AT HOME. GENERALIZED WEAKNESS. PT ON RA WITH SATS IN 90'S. BED IN LOW POSTIION, CALL LIGHT IN REACH AND PT DENIES ANY NEEDS AT THIS TIME.
[2019-03-15 04:14] LABS: BASOPHILS ABSOLUTE AUTO 0.05 K/mm3 (0.00-0.23); BASOPHILS PERCENT AUTO 1 % (0-2); EOSINOPHILS ABSOLUTE AUTO 0.46 K/mm3 (0.00-0.68); EOSINOPHILS PERCENT AUTO 5 % (0-6); Hematocrit 36.1 % (33.0-51.0); Hemoglobin 11.3 g/dL (11.5-16.0); IMMATURE GRAN ABSOLUTE AUTO 0.06 K/mm3 (0.00-0.10); IMMATURE GRAN PERCENT AUTO 1 % (0-1); LYMPHOCYTES ABSOLUTE AUTO 1.79 K/mm3 (0.84-5.20); LYMPHOCYTES PERCENT AUTO 19 % (21-46); MONOCYTES ABSOLUTE AUTO 0.84 K/mm3 (0.16-1.47); MONOCYTES PERCENT AUTO 9 % (4-13); Mean Corpuscular HGB 28.5 pg (26.0-34.0); Mean Corpuscular HGB Conc 31.3 g/dL (31.5-36.5); Mean Corpuscular Volume 91 fL (80-100); Mean Platelet Volume 10.7 fL (9.1-12.4); NEUTROPHILS ABSOLUTE AUTO 6.35 K/mm3 (1.96-9.15); NEUTROPHILS PERCENT AUTO 67 % (41-73); Platelet Count 173 K/mm3 (150-400); RDW Coefficient Variation 14.5 % (11.7-14.2); RDW Standard Deviation 48.3 fL (35.1-46.3); Red Blood Cell Count 3.96 M/mm3 (3.80-5.20); White Blood Cell Count 9.55 K/mm3 (4.00-11.30)
[2019-03-15 04:34] LABS: Albumin, Blood 2.7 g/dL (3.4-5.0); Anion Gap 4 mmol/L (6-16); Blood Urea Nitrogen 114 mg/dL (8-24); Bun/Creatinine Ratio 58.5 (12.0-20.0); CO2, Blood 40 mmol/L (21-32); Calcium, Blood 8.8 mg/dL (8.5-10.1); Chloride, Blood 93 mmol/L (98-108); Creatinine, Blood 1.95 mg/dL (0.40-1.00); Glomerular Filtration Rate 27 (60-); Glucose, Blood 248 mg/dL (70-99); Phosphorus, Blood 4.5 mg/dL (2.5-4.9); Potassium, Blood 3.8 mmol/L (3.5-5.5); Sodium, Blood 137 mmol/L (136-145)
--- NOTE | 2019-03-15 06:16 | NUR ---
SHIFT SUMMARY PT VITAL SIGNS REMAINS [place]. ASSESSMENT FINDINGS REMAIN UNCHANGED. PT FOLLOWED DIRECTIONS BUT AT TIMES WINED WHILE COMPLETING TASKS. WAS ABLE TO MAKE USE OF CONVERSATION, AND ENCOURAGED RELAXATION METHODS TO HELP CALM PT. PT HAD INCREASED CONFUSION AT TIMES AND AT TIMES HAD TO REORIENT. PT WAS EASILY AGGITATED AT TIMES. REASSURED PT THAT WE ARE HERE TO HELP HER AND TRY TO HELP HER FEEL BETTER. CONTINUED TO REPOSTION PT EVERY 2 HORUS. ATHOUGH A COUPLE OF TIMES PT REFUSED THIS. BUT WAS ABLE TO TALK PT INTO IT LATER ON. CLEANED AROUND SUPRAPUBIC CATHETER. BRUNER PATENT, DRAINING AND IN PLACE. BED IN LOW POSITION, CALL LIGHT IN REACH AND PT DENIES ANY NEEDS AT THIS TIME. WILL CONTINUE TO MONITOR UNTIL HANDOFF TO DAYSHIFT RN.
--- NOTE | 2019-03-15 18:52 | NUR ---
PT UP IN CHAIR, DOZES OFF AND ON. SCHED MEDS GIVEN. SOME IMPROVEMENT IN CBG'S, HIGHEST WAS 440 AT LUNCH, DOWN TO 319 AT DINNER. HAD IN MEETING WITH DR IRAJ, PALLIATIVE CARE, SON, RN AND WRAPPER HAND. ASSISTED PT UP OOB TO CHAIR, THEN BATHROOM WITH WALKER, AND BACK TO CHAIR. PT DID WELL WITH 1 PERSON ASSIST. PALLIATIVE CARE STAYED WITH PT TO DISCUSS GOALS, NEEDS AND WANTS. PLAN IS FOR PT TO RETURN TO [facility] TOMORROW. CONT TO MONITOR AND REPORT OFF TO PM RN.
--- NOTE | 2019-03-15 19:12 | NUR ---
physician and family at bedside with patient. nursing reviewing care with patient son. Pt up to commode and then back to chair. Son had to leave so sat with patient. This com writer has spoke with her on past admissions. Pt has a coarse strong cough and getting up clear sputem. Review of past few days with patient she has not been able to sleep due to cough and is anxious and fatigued. pt has some weakness and tremulous. Assisted with dinner. PT cries and wants to talk about her and loss of independence. Theraputic talk and support. then encouraged diversion and rest. Advised patient that her time here in the hospital should help with her hydaration and infection and cough. Will follow up with on supportive care and new polst.
[2019-03-16 05:17] LABS: BASOPHILS ABSOLUTE AUTO 0.04 K/mm3 (0.00-0.23); BASOPHILS PERCENT AUTO 0 % (0-2); EOSINOPHILS ABSOLUTE AUTO 0.21 K/mm3 (0.00-0.68); EOSINOPHILS PERCENT AUTO 2 % (0-6); Hematocrit 39.2 % (33.0-51.0); Hemoglobin 12.3 g/dL (11.5-16.0); IMMATURE GRAN ABSOLUTE AUTO 0.15 K/mm3 (0.00-0.10); IMMATURE GRAN PERCENT AUTO 1 % (0-1); LYMPHOCYTES ABSOLUTE AUTO 1.62 K/mm3 (0.84-5.20); LYMPHOCYTES PERCENT AUTO 15 % (21-46); MONOCYTES ABSOLUTE AUTO 0.87 K/mm3 (0.16-1.47); MONOCYTES PERCENT AUTO 8 % (4-13); Mean Corpuscular HGB 28.2 pg (26.0-34.0); Mean Corpuscular HGB Conc 31.4 g/dL (31.5-36.5); Mean Corpuscular Volume 90 fL (80-100); Mean Platelet Volume 10.3 fL (9.1-12.4); NEUTROPHILS ABSOLUTE AUTO 7.65 K/mm3 (1.96-9.15); NEUTROPHILS PERCENT AUTO 73 % (41-73); Platelet Count 185 K/mm3 (150-400); RDW Coefficient Variation 14.5 % (11.7-14.2); RDW Standard Deviation 46.6 fL (35.1-46.3); Red Blood Cell Count 4.36 M/mm3 (3.80-5.20); White Blood Cell Count 10.54 K/mm3 (4.00-11.30)
[2019-03-16 05:52] LABS: Bun/Creatinine Ratio 56.5 (12.0-20.0); Calcium, Blood 9.6 mg/dL (8.5-10.1); Creatinine, Blood 1.47 mg/dL (0.40-1.00); Potassium, Blood 3.6 mmol/L (3.5-5.5)
--- NOTE | 2019-03-16 07:41 | NUR ---
SHIFT SUMMARY PATIENT HAS FLAT AFFECT AND APPEARS TO BE WITHDRAWN. PATIENT DID NOT TALK WITH STAFF MUCH LAST NIGHT. STAFF WOULD ASK PATIENT QUESTIONS AND PATIENT WOULD NOT RESPOND, PATIENT DID RESPOND SOMETIMES BUT IT WOULD BE SHORT, SIMPLE ANSWERS. PATIENT TEARFUL THROUGHOUT THE NIGHT AND WOULD MOAN AND CRY OUT. HOWEVER, WHEN STAFF WOULD ENTER ROOM AND ASK WHAT WAS WRONG AND WHAT COULD BE DONE TO HELP PATIENT SHE WOULD SIMPLY CONTINUE TO MOAN AND CRY AND NOT RESPOND. PATIENT OFFERED APPROPRIATE SUPPORT DURING THESE EPISODES. PATIENT APPEARED TO SLEEP WELL THROUGHOUT MOST OF THE NIGHT. PATIENT TURNED Q2H. REPORT GIVEN TO ONCOMING RN.
--- NOTE | 2019-03-16 08:00 | NUR ---
PT LAYING IN BED COMPLAINING OF NAUSIA, STARTED VOMITING WHEN DR. GALO AND MYSELF ENTERED ROOM, IMMEDIATELY SAT HER UP, AND CLEANED HER UP, GAVE ZOFRAN, SEEMS ALERT AND ORIENTED, BUT AT TIMES WILL NOT ANSWER JUST STARES AT ME, OTHER TIMES SHE WILL MAKE HER NEEDS KNOWN, LUNGS ARE DIFFICULT TO AUSCULTATE SHE IS NOT COOPERATIVE WITH ASSESSMENT, AND IS MAKING A LOT OF MOUTH NOISE, BUT CAN HEAR SOME WHEEZING WITH COUGHING, MAY HAVE ASPERATED WHEN SHE WAS VOMITING, IS CLEAR IN UPPER DUMONT, BUT A BIT WET IN BRONCHIAL AREA, SHE IS HAVING A GOOD STRONG COUGH, WHICH SEEMS TO BE CLEARING IT SOME, HRR, LOUD MURMUR NOTED, NO EDEMA NOTED, PPP FAINT, CAP REFILL >3SEC, IV X2 SITES ARE CLEAR AND PATENT, BTX4, ABD ROUND SOFT NONTENDER, HAS A SUPRAPUBIC CATH DRAINING CLOUDY URINE, SKIN C/W/D, MOVES UPPER EXT BUT IS NOT MOTIVATED TO DO SO. SCOTTY, CALL LIGHT IN REACH.
--- NOTE | 2019-03-16 08:55 | NUR ---
Pt was vomiting; assisted to sit up and she vomited approx 100 cc of dark green liquid. Spo2 dropped to 70s, although she denied any difficulty breathing, she did begin coughing afterwards and required oxygen 6 l/min to bring her spo2 to 91-95%. She is not in any distress at this time, sitting up high in bed, wearing oxygen at 6 l/min via nasal prongs, sipping on some sprite. She was given zofran by Bayron Cornelius Rn, at the onset of vomiting. She is c/o of feeling hot, and continuing to cough intermittently, moist cough.
[2019-03-16 10:22] LABS: Albumin, Blood 3.1 g/dL (3.4-5.0); Anion Gap 8 mmol/L (6-16); Blood Urea Nitrogen 75 mg/dL (8-24); Bun/Creatinine Ratio 54.3 (12.0-20.0); CO2, Blood 32 mmol/L (21-32); Calcium, Blood 9.5 mg/dL (8.5-10.1); Chloride, Blood 102 mmol/L (98-108); Creatinine, Blood 1.38 mg/dL (0.40-1.00); Glomerular Filtration Rate 40 (60-); Glucose, Blood 256 mg/dL (70-99); Potassium, Blood 3.9 mmol/L (3.5-5.5); Sodium, Blood 142 mmol/L (136-145)
--- NOTE | 2019-03-16 13:00 | NUR ---
Met with Lia this afternoon. Lia is known to this writer editor for many years when she used to come into the [facility] weekly for wound care. Lia is laying in bed with HOB elevated. She has her eyes closed, she opens them when spoken to, but then closes them again. She doesn't follow commands. She was not able to tell this writer editor where she was. She has a wet sounding cough. EPIC CUPID ANALYST tried to encourage her to have lunch. She drank her supplement, but didn't want to eat more than a few bites of lunch. Spoke with Dr. Chavarria who updated pt's son this morning on her current status. Dr. Chavarria states family knows that pt doesn't want heroic measure done to save her life. Dr. Ivan states the plan is to see how Lia does over the next day or so. If she declines, family may be open to pursuing comfort care as an option per Dr. Chavarria. PC will follow for symptom management and family support. Pt unable to comlete a POLST form at this time as she isn't alert and oriented. Will plan to meet with pt's son and complete POLST prior to discharge from the hospital.
--- NOTE | 2019-03-16 13:45 | NUR ---
pt sitting up in bed with eyes closed, sats are 91% on 6 liters, she did cough when I asked her to. no further changes. call light in reach.
--- NOTE | 2019-03-16 18:06 | NUR ---
Report was called to RITA Britton. Anticipate transfer of pt to room 337 shortly.
--- NOTE | 2019-03-17 06:14 | NUR ---
NOC SHIFT SUMMARY PT WAS TRANSFERED FROM PCU TO [facility] AT APPROX 1915. SHE HAS SPOKEN VERY LITTLE DURING THIS SHIFT, NOR HAS SHE MOVED MUCH. SHE HAS BEEN SOMEWHAT HELPFULL AND DOES ATTEMP ASSISTANCE WHEN TURNING. SHE WILL REACH OUT FOR THE SIDE RAIL TO GRASP. SHE HAS NOT MUCH RESPONDED TO QUESTIONS THOUGH. HAS BEEN LARGELY NONVERBAL THIS SHIFT. THIS MORNING HOWEVER SHE WAS CALLING OUT. WHEN I WENT INTO ROOM SHE SAID "I FEEL NAUSEOUS". THIS WAS THE MOST SHE HAS SAID ALL NIGHT. SHE WAS GIVEN ZOFRAN FOR THIS. SHE THEN REQUESTED LOTION FOR HER HANDS WHICH WAS PROVIDED. PT CURRENTLY LYING AWAKE IN BED APPEARS IN NO ACUTE DISTRESS. WILL CONTINUE TO MONITOR.
[2019-03-17 10:24] LABS: Bun/Creatinine Ratio 43.3 (12.0-20.0); Calcium, Blood 9.3 mg/dL (8.5-10.1); Creatinine, Blood 1.34 mg/dL (0.40-1.00); Potassium, Blood 4.1 mmol/L (3.5-5.5)
--- NOTE | 2019-03-17 18:57 | NUR ---
NO ACUTE CHANGES NOTED THIS SHIFT. DR GALO DID ORDER SPEECH EVAL, PT NPO UNTIL AFTER EVAL. CONTIN IVF STARTED. WILL CONTINUE TO MONITOR AND REPORT TO ONCOMING RN
--- NOTE | 2019-03-18 04:49 | NUR ---
*SHIFT SUMMARY* PATIENT IS ALERT AND CONFUSED AT TIMES. PATIENT FORGETS THAT SHE IS NPO AND ASKS FOR WATER. PATIENT SLEPT OFF AND ON THROUGHOUT THE NIGHT. PT REPOSITIONED, MEPLIX ON THE COCCYX IS C/D/I. LEMON SWABS OFFERED TO KEEP MOUTH MOISTENED. VITALS STABLE. NO OTHER CHANGES THROUGHOUT THE NIGHT.
[2019-03-18 05:39] LABS: BASOPHILS ABSOLUTE AUTO 0.06 K/mm3 (0.00-0.23); BASOPHILS PERCENT AUTO 1 % (0-2); EOSINOPHILS ABSOLUTE AUTO 0.42 K/mm3 (0.00-0.68); EOSINOPHILS PERCENT AUTO 4 % (0-6); Hematocrit 37.4 % (33.0-51.0); Hemoglobin 11.3 g/dL (11.5-16.0); IMMATURE GRAN ABSOLUTE AUTO 0.12 K/mm3 (0.00-0.10); IMMATURE GRAN PERCENT AUTO 1 % (0-1); LYMPHOCYTES ABSOLUTE AUTO 2.19 K/mm3 (0.84-5.20); LYMPHOCYTES PERCENT AUTO 23 % (21-46); MONOCYTES ABSOLUTE AUTO 0.88 K/mm3 (0.16-1.47); MONOCYTES PERCENT AUTO 9 % (4-13); Mean Corpuscular HGB 28.5 pg (26.0-34.0); Mean Corpuscular HGB Conc 30.2 g/dL (31.5-36.5); Mean Platelet Volume 10.3 fL (9.1-12.4); NEUTROPHILS ABSOLUTE AUTO 6.07 K/mm3 (1.96-9.15); NEUTROPHILS PERCENT AUTO 62 % (41-73); Platelet Count 160 K/mm3 (150-400); RDW Coefficient Variation 14.7 % (11.7-14.2); RDW Standard Deviation 51.4 fL (35.1-46.3); Red Blood Cell Count 3.97 M/mm3 (3.80-5.20); White Blood Cell Count 9.74 K/mm3 (4.00-11.30)
[2019-03-18 05:41] LABS: Mean Corpuscular Volume 94 fL (80-100)
[2019-03-18 06:07] LABS: Bun/Creatinine Ratio 32.6 (12.0-20.0); Calcium, Blood 8.6 mg/dL (8.5-10.1); Creatinine, Blood 1.38 mg/dL (0.40-1.00)
--- NOTE | 2019-03-18 17:16 | NUR ---
SHIFT SUMMARY PT IS A/O AND INDEPENDANT TO THE BR. SHE HAS A 18 G IV IN THE L FA, SHE IS ON TELE AT NORMAL SINUS IN THE 60S, SHE TAKES PILLS ONE AT A TIME. SHE HAS URINARY RETENTION AND HAS PRN BLADDER SCAN IF NEEDED. SHE HAS BEEN CALM AND COOPERATIVE THROUGHOUT THE DAY. SHE HAS HAD VISITORS MOST OF THE DAY. WILL CONTINUE TO MONITOR.
--- NOTE | 2019-03-18 17:40 | NUR ---
SUMMARY PT RESTING IN BED, WAKES EASILY, IS CONFUSED AT TIMES, CHICK[place]OON, SUPRAPUBIC CATHETER REMAINS IN PLACE, PT DOES NOT USE HER CALL LIGHT APPROPRIATELY AND WILL OFTEN CALL OUT, SPEECH THERAPY WORKED WITH THE PT, PT HAS A POOR APPETITE, VSS, NO ACUTE CHANGES, WILL CONT TO MONITOR
--- NOTE | 2019-03-19 04:28 | NUR ---
SHIFT SUMMARY PATIENT IS ALERT AND CONFUSED. PT COMPLAINED ABOUT HER LIQUIDS BEING THICKENED. PT STATES SHE ISN'T GOING TO DRINK THEM. PATIENT DID NOT SLEEP UNTIL LATE THIS AM. NO NEW CHANGES. VITAL SIGNS STABLE.
--- NOTE | 2019-03-19 17:11 | NUR ---
SUMMARY PT RESTING QUIETLY IN BED, PT CALLS OUT FREQUENTLY, PT DOES NOT CONSISTENTLY USE HER CALL LIGHT, PT HAS HAD SOME FAMILY COME IN TO VISIT, PT TAKES MEDS WHOLE WITH PUDDING, PT DISLIKES HER THICKENED WATER, PT WILL REFUSE TO TURN TO THE SIDE, MEPILEX IN PLACE TO HER COCCYX, PT EDUCATED ABOUT THE IMPORTANCE OF REPOSITIONING TO PREVENT SKIN BREAKDOWN, PT MED PER EMAR FOR PAIN, VSS, WILL CONT TO MONITOR
[2019-03-20 05:20] LABS: BASOPHILS ABSOLUTE AUTO 0.05 K/mm3 (0.00-0.23); BASOPHILS PERCENT AUTO 1 % (0-2); EOSINOPHILS ABSOLUTE AUTO 0.57 K/mm3 (0.00-0.68); EOSINOPHILS PERCENT AUTO 6 % (0-6); Hematocrit 37.1 % (33.0-51.0); Hemoglobin 11.7 g/dL (11.5-16.0); IMMATURE GRAN ABSOLUTE AUTO 0.08 K/mm3 (0.00-0.10); IMMATURE GRAN PERCENT AUTO 1 % (0-1); LYMPHOCYTES ABSOLUTE AUTO 1.72 K/mm3 (0.84-5.20); LYMPHOCYTES PERCENT AUTO 19 % (21-46); MONOCYTES ABSOLUTE AUTO 0.69 K/mm3 (0.16-1.47); MONOCYTES PERCENT AUTO 8 % (4-13); Mean Corpuscular HGB 28.8 pg (26.0-34.0); Mean Corpuscular HGB Conc 31.5 g/dL (31.5-36.5); Mean Platelet Volume 9.8 fL (9.1-12.4); NEUTROPHILS ABSOLUTE AUTO 6.15 K/mm3 (1.96-9.15); NEUTROPHILS PERCENT AUTO 66 % (41-73); Platelet Count 167 K/mm3 (150-400); RDW Coefficient Variation 14.6 % (11.7-14.2); Red Blood Cell Count 4.06 M/mm3 (3.80-5.20); White Blood Cell Count 9.26 K/mm3 (4.00-11.30)
[2019-03-20 05:26] LABS: Mean Corpuscular Volume 91 fL (80-100)
[2019-03-20 05:39] LABS: Bun/Creatinine Ratio 23.5 (12.0-20.0); Calcium, Blood 8.6 mg/dL (8.5-10.1); Creatinine, Blood 1.15 mg/dL (0.40-1.00)
--- NOTE | 2019-03-20 06:23 | NUR ---
SHIFT SUMMARY PT IS ALERT AND INTERMITTENLY CONFUSED. PT COMPLAINED OF PAIN AND WAS MEDIATED ORDERED. PT USES CALL LIGHT FREQUENTLY. PT EXPRESSED SHE IS EAGER TO GO BACK TO HER CARE FACILITY TOMORROW. VITAL SIGNS STABLE. NO NEW CHANGES.
--- NOTE | 2019-03-20 19:31 | NUR ---
SHIFT SUMMARY: NO ACUTE CHANGES TO REPORT THIS SHIFT. PT A&OX2; HX DEMENTIA;CONFUSED; ANXIOUS;COOPERATIVE WITH CARE. NO C/O PAIN THIS SHIFT. PT & OT EVAL & TREAT OREDERED. REPORT GIVEN TO ONCOMING RN.
--- NOTE | 2019-03-21 07:30 | NUR ---
03/21/19 0600 VERY ANXIOUS AT START OF SHIFT. FREQUENT CALLS "TO ADJUST MY PILLOWS". VERY TALKATIVE. TAKING FOOD/FLUIDS WELL. JESSICA STABLE. ASSISTED WITH TOILETING AND VOIDING. ATTENDS BRIEFS ON SHE HAD TROUBLE "WAITING FOR HELP". LEGS ELEVATED ON PILLOWS SHE ALLOWS. SLEPT WELL SECOND HALF OF SHIFT.
[2019-03-21] MEDS ORDERED: ALBU2.5V5 INH (14:49)
[2019-03-21] MEDS ORDERED: HUMALOG JU100 UNIT/1 SC (14:51)
[2019-03-21] MEDS ORDERED: Clindamycin HC300 MG PO (14:54)
[2019-03-21] MEDS ORDERED: Vsl#3 Capsule1 EACH PO (14:54)
[2019-03-21] MEDS ORDERED: Liquitears15 ML BOTHEYES (14:55)
--- NOTE | 2019-03-21 15:55 | NUR ---
ATTEMPTED TO CALL REPORT TO [facility]. NO ANSWER. WILL TRY CALLING AGAIN.
--- NOTE | 2019-03-21 16:18 | NUR ---
REPORT GIVEN TO RITA ALVAREZ AT [facility] AT 1615.
== END 2019-03-21 15:36 | DRG 871 ==
LOC: ER 01:41 → PCU 04:50 → MEDS 03-16 19:01
PROVIDERS: Emergency Medicine; Internal Medicine; ADMIT Family Medicine
DX: A41.9 Sepsis, unspecified organism (principal); J69.0 Pneumonitis due to inhalation of food and vomit; J96.21 Acute and chronic respiratory failure with hypoxia; G92 Toxic encephalopathy; N17.9 Acute kidney failure, unspecified; J44.1 Chronic obstructive pulmonary disease with (acute) exacerbation; Z68.41 Body mass index [BMI] 40.0-44.9, adult; Z66 Do not resuscitate; F01.50 Vascular dementia, unspecified severity, without behavioral disturbance, psychotic disturbance, mood disturbance, and anxiety; E11.621 Type 2 diabetes mellitus with foot ulcer; Z51.5 Encounter for palliative care; L97.509 Non-pressure chronic ulcer of other part of unspecified foot with unspecified severity; I12.9 Hypertensive chronic kidney disease with stage 1 through stage 4 chronic kidney disease, or unspecified chronic kidney disease; E11.22 Type 2 diabetes mellitus with diabetic chronic kidney disease; N18.3 Chronic kidney disease, stage 3 (moderate); Z86.73 Personal history of transient ischemic attack (TIA), and cerebral infarction without residual deficits; Z79.4 Long term (current) use of insulin; N31.9 Neuromuscular dysfunction of bladder, unspecified; G47.33 Obstructive sleep apnea (adult) (pediatric); Z87.891 Personal history of nicotine dependence; E87.6 Hypokalemia; E11.65 Type 2 diabetes mellitus with hyperglycemia; K21.9 Gastro-esophageal reflux disease without esophagitis; Z99.81 Dependence on supplemental oxygen; E66.01 Morbid (severe) obesity due to excess calories
CPT/HCPCS: 36415; 36600; 71045; 71046; 80048; 80053; 80069; 82803; 82947; 83605; 83735; 83880; 84145; 84484; 85025; 87040; 87486; 87581; 87633; 87798; 92610; 93005; 93010; 93970; 94640; 94667; 94760; 94761; 96365; 96375; 97162; 97165; 97530; 97535; 99285-25; J0456; J0696; J1650; J1815; J2405; J3480; J7030; J7050

== ENCOUNTER → 2019-05-08 | Outpatient (CLI) | payer MEDICARE, OTHER ==
[~2019-05-08] MED LIST changes: +(None)15 G1 EXT; +ALBU2.5V5 INH; +BENZ100A PO; +CEFD300 PO; +CEPACOL SORE T1 EACH MM; +Clindamycin HC300 MG PO; +Ferrous Sulfat325 M2 PO; +HUMALOG JU100 UNIT/1 SC; +Liquitears15 ML BOTHEYES; +METO2.5 PO; +MIRALAX17 GM PO; +MORPHINE SULFAT10 MG PO; +Micro-K10 MEQ PO; +Novolin R100 UNIT/M; +ONDA4ODT MM; +Pedi-Dri 100,0060 GM TOP; +SERT50 PO; +SPIR25; +VITAMIN D32000 UNI1 PO; +Vibramycin100 MG PO; +Vsl#3 Capsule1 EACH PO
[2019-05-08 12:44] LABS: Appearance, Urine Hazy (Clear); Bilirubin, Urine Neg (Neg); Blood, Urine 5+ (Neg); Color, Urine Yellow (P-Yellow); Glucose Qualitative, Urine Neg (Neg); Ketones, Urine Neg (Neg); Leukocyte Esterase, Urine 3+ (Neg); Nitrite, Urine Neg (Neg); Protein, Urine 2+ (Neg); Urobilinogen, Urine NORM (Normal)
[2019-05-08 13:38] LABS: Squamous Epithelial Cells Rare /hpf (Few)
[2019-05-08 13:39] LABS: Bacteria Many /hpf; White Blood Cells, Urine 50-100 /hpf (0-5)
== END | disposition home or self-care (01) ==
LOC: LAB HH 12:02 → LAB 12:02
PROVIDERS: Internal Medicine Nephrology
DX: N39.0 Urinary tract infection, site not specified (principal)
CPT/HCPCS: 81001; 87077; 87086; 87147; 87186

== ENCOUNTER 2019-06-18 13:53 | Emergency (ER) | payer MEDICARE, OTHER ==
[~2019-06-18] VITALS: Ht 165.1 cm; Wt 86.2 kg
[~2019-06-18 13:53] MED LIST changes: -SPIR25; -Vibramycin100 MG PO
[2019-06-18] MEDS ORDERED: SPIR25 (14:33)
[2019-06-18 15:30] LABS: BASOPHILS ABSOLUTE AUTO 0.05 K/mm3 (0.00-0.23); BASOPHILS PERCENT AUTO 0 % (0-2); EOSINOPHILS PERCENT AUTO 2 % (0-6); Hematocrit 38.5 % (33.0-51.0); Hemoglobin 12.6 g/dL (11.5-16.0); IMMATURE GRAN ABSOLUTE AUTO 0.05 K/mm3 (0.00-0.10); IMMATURE GRAN PERCENT AUTO 0 % (0-1); LYMPHOCYTES ABSOLUTE AUTO 2.98 K/mm3 (0.84-5.20); LYMPHOCYTES PERCENT AUTO 23 % (21-46); MONOCYTES ABSOLUTE AUTO 0.84 K/mm3 (0.16-1.47); MONOCYTES PERCENT AUTO 7 % (4-13); Mean Corpuscular HGB 29.6 pg (26.0-34.0); Mean Corpuscular HGB Conc 32.7 g/dL (31.5-36.5); Mean Corpuscular Volume 90 fL (80-100); Mean Platelet Volume 10.7 fL (9.1-12.4); NEUTROPHILS ABSOLUTE AUTO 8.62 K/mm3 (1.96-9.15); NEUTROPHILS PERCENT AUTO 68 % (41-73); Platelet Count 221 K/mm3 (150-400); RDW Coefficient Variation 12.6 % (11.7-14.2); RDW Standard Deviation 41.1 fL (35.1-46.3); Red Blood Cell Count 4.26 M/mm3 (3.80-5.20); White Blood Cell Count 12.74 K/mm3 (4.00-11.30)
[2019-06-18 15:41] LABS: Albumin, Blood 3.5 g/dL (3.4-5.0); Albumin/Globulin Ratio 0.8 (0.8-1.8); Bilirubin, Total 0.2 mg/dL (0.1-1.0); Bun/Creatinine Ratio 44.8 (12.0-20.0); Calcium, Blood 8.8 mg/dL (8.5-10.1); Creatinine, Blood 1.54 mg/dL (0.40-1.00); Globulin, Blood 4.2 g/dL (2.2-4.0); Magnesium, Blood 2.1 mg/dL (1.6-2.4); Potassium, Blood 3.2 mmol/L (3.5-5.5); Total Protein, Blood 7.7 g/dL (6.4-8.2)
[2019-06-18] MEDS ORDERED: Norco 5-325 Ta1 EACH PO (17:46)
[2019-06-18] MEDS ORDERED: Vibramycin100 MG PO (17:46)
== END 2019-06-18 18:30 | disposition home or self-care (01) ==
LOC: ER 13:53
PROVIDERS: Emergency Medicine
DX: I82.812 Embolism and thrombosis of superficial veins of left lower extremity (principal); L03.115 Cellulitis of right lower limb; E11.9 Type 2 diabetes mellitus without complications; J44.9 Chronic obstructive pulmonary disease, unspecified; G47.30 Sleep apnea, unspecified; I10 Essential (primary) hypertension; Z88.0 Allergy status to penicillin; Z88.1 Allergy status to other antibiotic agents; Z88.8 Allergy status to other drugs, medicaments and biological substances; Z79.899 Other long term (current) drug therapy; Z79.4 Long term (current) use of insulin; Z86.73 Personal history of transient ischemic attack (TIA), and cerebral infarction without residual deficits; Z87.891 Personal history of nicotine dependence
CPT/HCPCS: 36415; 80053; 83735; 85025; 93970; 99284-25

== ENCOUNTER → 2019-06-22 | Outpatient (CLI) | payer MEDICARE, OTHER ==
[~2019-06-22] MED LIST changes: +SPIR25; +Vibramycin100 MG PO
== END | disposition home or self-care (01) ==
LOC: LAB 11:18 → LAB SHORT 11:18
DX: R19.7 Diarrhea, unspecified (principal)

== ENCOUNTER 2020-01-20 03:16 | Emergency (ER) | payer MEDICARE, OTHER ==
[~2020-01-20] VITALS: Ht 162.6 cm; Wt 77.6 kg
[2020-01-20 05:13] LABS: Source, Urine Catheter
[2020-01-20 05:21] LABS: Appearance, Urine Clear (Clear); Bilirubin, Urine Neg (Neg); Blood, Urine 5+ (Neg); Color, Urine Yellow (P-Yellow); Glucose Qualitative, Urine Neg (Neg); Ketones, Urine Neg (Neg); Leukocyte Esterase, Urine 3+ (Neg); Nitrite, Urine Pos (Neg); Protein, Urine 3+ (Neg); Specific Gravity, Urine 1.015 (1.003-1.022); Urobilinogen, Urine NORM (Normal)
[2020-01-20 05:32] LABS: Bacteria Many /hpf; Red Blood Cells, Urine TNTC /hpf (0-2); Squamous Epithelial Cells Few /hpf (Few); White Blood Cells, Urine TNTC /hpf (0-5)
[2020-01-20] MEDS ORDERED: Keflex500 MG PO (06:30)
== END 2020-01-20 07:42 | disposition home or self-care (01) ==
LOC: ER 03:16
PROVIDERS: Emergency Medicine
DX: T83.518A Infection and inflammatory reaction due to other urinary catheter, initial encounter (principal); E11.9 Type 2 diabetes mellitus without complications; I10 Essential (primary) hypertension; J44.9 Chronic obstructive pulmonary disease, unspecified; Z86.73 Personal history of transient ischemic attack (TIA), and cerebral infarction without residual deficits; Z88.0 Allergy status to penicillin; Z88.1 Allergy status to other antibiotic agents; Z88.8 Allergy status to other drugs, medicaments and biological substances; Z79.899 Other long term (current) drug therapy; Z87.891 Personal history of nicotine dependence
CPT/HCPCS: 81001; 87077; 87086; 87147; 87186; 99283; A9270-GY

== ENCOUNTER → 2020-02-04 | Outpatient (CLI) | payer MEDICARE, OTHER ==
[~2020-02-04] MED LIST changes: +Keflex500 MG PO
[2020-02-04 17:38] LABS: Appearance, Urine Clear (Clear); Bilirubin, Urine Neg (Neg); Blood, Urine Neg (Neg); Color, Urine Yellow (P-Yellow); Glucose Qualitative, Urine Neg (Neg); Ketones, Urine Neg (Neg); Leukocyte Esterase, Urine 2+ (Neg); Nitrite, Urine Pos (Neg); Protein, Urine Neg (Neg); Specific Gravity, Urine 1.005 (1.003-1.022); Urobilinogen, Urine NORM (Normal)
[2020-02-04 17:56] LABS: Bacteria Rare /hpf; Red Blood Cells, Urine 0-2 /hpf (0-2); Squamous Epithelial Cells Rare /hpf (Few)
== END ==
LOC: LAB 14:10 → LAB SHORT 14:10
PROVIDERS: Physician Assistant
DX: N39.0 Urinary tract infection, site not specified (principal)
CPT/HCPCS: 81001; 87086

== ENCOUNTER → 2020-02-09 | Outpatient (CLI) | payer MEDICARE, OTHER ==
[2020-02-09 18:16] LABS: BASOPHILS ABSOLUTE AUTO 0.04 K/mm3 (0.00-0.23); BASOPHILS PERCENT AUTO 0 % (0-2); EOSINOPHILS ABSOLUTE AUTO 0.28 K/mm3 (0.00-0.68); EOSINOPHILS PERCENT AUTO 3 % (0-6); Hematocrit 35.9 % (33.0-51.0); Hemoglobin 11.8 g/dL (11.5-16.0); IMMATURE GRAN ABSOLUTE AUTO 0.04 K/mm3 (0.00-0.10); IMMATURE GRAN PERCENT AUTO 0 % (0-1); LYMPHOCYTES ABSOLUTE AUTO 2.48 K/mm3 (0.84-5.20); LYMPHOCYTES PERCENT AUTO 25 % (21-46); MONOCYTES ABSOLUTE AUTO 0.73 K/mm3 (0.16-1.47); MONOCYTES PERCENT AUTO 7 % (4-13); Mean Corpuscular HGB Conc 32.9 g/dL (31.5-36.5); Mean Corpuscular Volume 88 fL (80-100); Mean Platelet Volume 10.1 fL (9.1-12.4); NEUTROPHILS PERCENT AUTO 64 % (41-73); Platelet Count 168 K/mm3 (150-400); RDW Coefficient Variation 12.5 % (11.7-14.2); RDW Standard Deviation 40.1 fL (35.1-46.3); Red Blood Cell Count 4.07 M/mm3 (3.80-5.20); White Blood Cell Count 9.97 K/mm3 (4.00-11.30)
[2020-02-09 18:20] LABS: Bun/Creatinine Ratio 40.6 (12.0-20.0); Calcium, Blood 8.7 mg/dL (8.5-10.1); Creatinine, Blood 1.8 mg/dL (0.40-1.00); Potassium, Blood 3.7 mmol/L (3.5-5.5)
== END | disposition home or self-care (01) ==
LOC: LAB SHORT 18:11 → LAB EV 18:11
PROVIDERS: Physician Assistant Surgical
DX: R53.83 Other fatigue (principal); N39.0 Urinary tract infection, site not specified
CPT/HCPCS: 80048; 85025; 87086

== ENCOUNTER → 2020-02-10 | Outpatient (CLI) | payer MEDICARE, OTHER ==
[2020-02-10 13:38] LABS: BASOPHILS ABSOLUTE AUTO 0.03 K/mm3 (0.00-0.23); BASOPHILS PERCENT AUTO 0 % (0-2); EOSINOPHILS ABSOLUTE AUTO 0.36 K/mm3 (0.00-0.68); EOSINOPHILS PERCENT AUTO 5 % (0-6); Hematocrit 35.9 % (33.0-51.0); Hemoglobin 11.8 g/dL (11.5-16.0); IMMATURE GRAN ABSOLUTE AUTO 0.04 K/mm3 (0.00-0.10); IMMATURE GRAN PERCENT AUTO 1 % (0-1); LYMPHOCYTES ABSOLUTE AUTO 2.59 K/mm3 (0.84-5.20); LYMPHOCYTES PERCENT AUTO 36 % (21-46); MONOCYTES ABSOLUTE AUTO 0.59 K/mm3 (0.16-1.47); MONOCYTES PERCENT AUTO 8 % (4-13); Mean Corpuscular HGB 29.2 pg (26.0-34.0); Mean Corpuscular HGB Conc 32.9 g/dL (31.5-36.5); Mean Corpuscular Volume 89 fL (80-100); Mean Platelet Volume 9.9 fL (9.1-12.4); NEUTROPHILS ABSOLUTE AUTO 3.67 K/mm3 (1.96-9.15); NEUTROPHILS PERCENT AUTO 51 % (41-73); Platelet Count 157 K/mm3 (150-400); RDW Coefficient Variation 12.5 % (11.7-14.2); RDW Standard Deviation 40.4 fL (35.1-46.3); Red Blood Cell Count 4.04 M/mm3 (3.80-5.20); White Blood Cell Count 7.28 K/mm3 (4.00-11.30)
[2020-02-10 13:43] LABS: Bun/Creatinine Ratio 39.8 (12.0-20.0); Calcium, Blood 8.5 mg/dL (8.5-10.1); Creatinine, Blood 1.61 mg/dL (0.40-1.00); Potassium, Blood 3.5 mmol/L (3.5-5.5)
== END ==
LOC: LAB EV 13:34 → LAB SHORT 13:34
PROVIDERS: Physician Assistant Surgical
DX: N39.0 Urinary tract infection, site not specified (principal)
CPT/HCPCS: 80048; 85025

== ENCOUNTER → 2020-04-03 | Outpatient (CLI) | payer MEDICARE, OTHER ==
[2020-04-03 20:19] LABS: Bilirubin, Urine Neg (Neg); Blood, Urine 5+ (Neg); Glucose Qualitative, Urine Neg (Neg); Ketones, Urine Neg (Neg); Leukocyte Esterase, Urine 3+ (Neg); Nitrite, Urine Pos (Neg); Protein, Urine Neg (Neg); Urobilinogen, Urine NORM (Normal)
[2020-04-03 20:29] LABS: Appearance, Urine Hazy (Clear); Color, Urine Yellow (P-Yellow)
[2020-04-03 20:30] LABS: Bacteria Few /hpf; Red Blood Cells, Urine 0-2 /hpf (0-2); Squamous Epithelial Cells Not Seen /hpf (Few)
[2020-04-03 20:31] LABS: Triple Phosphate Crystals Many /hpf
== END | disposition home or self-care (01) ==
LOC: LAB SHORT 20:13 → LAB 20:13
PROVIDERS: Physician Assistant
DX: N39.0 Urinary tract infection, site not specified (principal)
CPT/HCPCS: 81001; 87077; 87086; 87186

== ENCOUNTER 2020-04-25 05:03 | Emergency (ER) | payer MEDICARE, OTHER ==
[~2020-04-25] VITALS: Ht 162.6 cm; Wt 74.8 kg
[2020-04-25 06:12] LABS: Source, Urine Catheter
[2020-04-25 06:17] LABS: Appearance, Urine Cloudy (Clear); Bilirubin, Urine Neg (Neg); Blood, Urine 5+ (Neg); Color, Urine Yellow (P-Yellow); Glucose Qualitative, Urine Neg (Neg); Ketones, Urine Neg (Neg); Leukocyte Esterase, Urine 2+ (Neg); Nitrite, Urine Pos (Neg); Protein, Urine 1+ (Neg); Specific Gravity, Urine 1.015 (1.003-1.022); Urobilinogen, Urine NORM (Normal)
[2020-04-25 06:26] LABS: Red Blood Cells, Urine 25-50 /hpf (0-2); White Blood Cells, Urine 50-100 /hpf (0-5)
[2020-04-25 06:29] LABS: Amorphous Light (0-Heavy); Bacteria Many /hpf; Squamous Epithelial Cells Few /hpf (Few)
[2020-04-25] MEDS ORDERED: CEFP200 PO (06:30)
== END 2020-04-25 06:55 | disposition home or self-care (01) ==
LOC: ER 05:03
PROVIDERS: Emergency Medicine
DX: T83.010A Breakdown (mechanical) of cystostomy catheter, initial encounter (principal); N39.0 Urinary tract infection, site not specified; E11.9 Type 2 diabetes mellitus without complications; Z88.0 Allergy status to penicillin; Z88.1 Allergy status to other antibiotic agents; Z88.8 Allergy status to other drugs, medicaments and biological substances; Z79.899 Other long term (current) drug therapy; Z79.4 Long term (current) use of insulin
CPT/HCPCS: 51102; 81001; 87077; 87086; 87186; 99283-25

== ENCOUNTER 2020-05-18 19:50 | Emergency (ER) | payer MEDICARE, OTHER ==
[~2020-05-18] VITALS: Ht 157.5 cm; Wt 65.8 kg
[~2020-05-18 19:50] MED LIST changes: +BASAGLAR K100 UNIT/1; +CEFP200 PO; +NOVOLOG100 UNIT/3
== END 2020-05-18 21:15 | disposition home or self-care (01) ==
LOC: ER 19:50
DX: T83.090A Other mechanical complication of cystostomy catheter, initial encounter (principal); Z88.0 Allergy status to penicillin; Z88.1 Allergy status to other antibiotic agents; Z88.8 Allergy status to other drugs, medicaments and biological substances; Z79.899 Other long term (current) drug therapy; Z79.4 Long term (current) use of insulin; Z79.2 Long term (current) use of antibiotics; J44.9 Chronic obstructive pulmonary disease, unspecified; I10 Essential (primary) hypertension; E11.9 Type 2 diabetes mellitus without complications; Z86.73 Personal history of transient ischemic attack (TIA), and cerebral infarction without residual deficits; Z87.891 Personal history of nicotine dependence; N39.0 Urinary tract infection, site not specified
CPT/HCPCS: 51102; 81003; 87086; 99283-25

== ENCOUNTER 2020-06-04 01:05 | Emergency (ER) | payer MEDICARE, OTHER ==
[~2020-06-04] VITALS: Ht 162.6 cm; Wt 81.2 kg
[2020-06-04] MEDS ORDERED: ASPI81CH PO (01:19)
[2020-06-04] MEDS ORDERED: BUME2 PO (01:20)
[2020-06-04] MEDS ORDERED: ZYRTEC10 M2 PO (01:21)
[2020-06-04] MEDS ORDERED: FERSU300 PO (01:21)
[2020-06-04] MEDS ORDERED: SYSTANE 0.3-0.1 EACH (01:25)
[2020-06-04] MEDS ORDERED: HYDHCL25 PO (01:28)
[2020-06-04 01:53] LABS: Source, Urine Clean Catch
[2020-06-04 01:55] LABS: Bilirubin, Urine Neg (Neg); Blood, Urine 5+ (Neg); Glucose Qualitative, Urine Neg (Neg); Ketones, Urine Neg (Neg); Leukocyte Esterase, Urine 3+ (Neg); Nitrite, Urine Neg (Neg); Protein, Urine 1+ (Neg); Urobilinogen, Urine NORM (Normal)
[2020-06-04 01:58] LABS: Appearance, Urine Clear (Clear); Color, Urine Yellow (P-Yellow)
[2020-06-04 02:00] LABS: Bacteria Mod /hpf; Red Blood Cells, Urine 50-100 /hpf (0-2); Squamous Epithelial Cells Few /hpf (Few)
[2020-06-04 02:01] LABS: Amorphous Light (0-Heavy)
[2020-06-04] MEDS ORDERED: CEFP200 PO (02:09)
== END 2020-06-04 02:55 | disposition home or self-care (01) ==
LOC: ER 01:05
PROVIDERS: Emergency Medicine
DX: N39.0 Urinary tract infection, site not specified (principal); Z88.0 Allergy status to penicillin; Z88.1 Allergy status to other antibiotic agents; Z88.8 Allergy status to other drugs, medicaments and biological substances; Z79.899 Other long term (current) drug therapy; Z79.82 Long term (current) use of aspirin; Z79.2 Long term (current) use of antibiotics; E11.9 Type 2 diabetes mellitus without complications
CPT/HCPCS: 51102; 81001; 87077; 87086; 87186; 99283-25; A9270-GY

== ENCOUNTER 2020-08-16 22:49 | Emergency (ER) | payer MEDICARE, OTHER ==
[~2020-08-16] VITALS: Ht 165.1 cm; Wt 74.8 kg
[~2020-08-16 22:49] MED LIST changes: +FERSU300 PO; +HYDHCL25 PO; +SYSTANE 0.3-0.1 EACH; +ZYRTEC10 M2 PO
[2020-08-17 00:05] LABS: Source, Urine Clean Catch
[2020-08-17 00:17] LABS: Bilirubin, Urine Neg (Neg); Blood, Urine 5+ (Neg); Glucose Qualitative, Urine Neg (Neg); Ketones, Urine Neg (Neg); Leukocyte Esterase, Urine 2+ (Neg); Nitrite, Urine Pos (Neg); Protein, Urine 2+ (Neg); Specific Gravity, Urine 1.015 (1.003-1.022); Urobilinogen, Urine NORM (Normal)
[2020-08-17 00:42] LABS: Appearance, Urine Hazy (Clear); Color, Urine Pale Yellow (P-Yellow)
[2020-08-17 00:43] LABS: Bacteria Few /hpf; Red Blood Cells, Urine TNTC /hpf (0-2); Squamous Epithelial Cells Rare /hpf (Few); White Blood Cells, Urine 50-100 /hpf (0-5)
[2020-08-17] MEDS ORDERED: Cefpodoxime Pr100 MG PO (00:49)
== END 2020-08-17 01:49 | disposition home or self-care (01) ==
LOC: ER 22:49
PROVIDERS: Emergency Medicine
DX: T83.198A Other mechanical complication of other urinary devices and implants, initial encounter (principal); E11.9 Type 2 diabetes mellitus without complications; J44.9 Chronic obstructive pulmonary disease, unspecified; I10 Essential (primary) hypertension; Z46.6 Encounter for fitting and adjustment of urinary device; Z88.0 Allergy status to penicillin; Z88.1 Allergy status to other antibiotic agents; Z88.8 Allergy status to other drugs, medicaments and biological substances; Z79.899 Other long term (current) drug therapy; Z79.4 Long term (current) use of insulin; Z86.73 Personal history of transient ischemic attack (TIA), and cerebral infarction without residual deficits; Z87.891 Personal history of nicotine dependence
CPT/HCPCS: 81001; 87077; 87086; 87186; 99283-25; A9270-GY

== ENCOUNTER 2020-08-30 00:31 | Emergency (ER) | payer MEDICARE, OTHER ==
[~2020-08-30] VITALS: Ht 167.6 cm; Wt 74.8 kg
[~2020-08-30 00:31] MED LIST changes: +Cefpodoxime Pr100 MG PO
== END 2020-08-30 01:47 ==
LOC: ER 00:31
DX: T83.028A Displacement of other urinary catheter, initial encounter (principal); E11.9 Type 2 diabetes mellitus without complications; J44.9 Chronic obstructive pulmonary disease, unspecified; I10 Essential (primary) hypertension; Z79.899 Other long term (current) drug therapy; Z86.73 Personal history of transient ischemic attack (TIA), and cerebral infarction without residual deficits; Z88.0 Allergy status to penicillin; Z88.1 Allergy status to other antibiotic agents; Z88.8 Allergy status to other drugs, medicaments and biological substances; Z79.4 Long term (current) use of insulin
CPT/HCPCS: 51102; 87077; 87086; 87186; 99283-25

== ENCOUNTER 2020-09-05 06:04 | Emergency (ER) | payer MEDICARE, OTHER ==
[~2020-09-05] VITALS: Ht 167.6 cm; Wt 77.1 kg
== END 2020-09-05 08:01 | disposition home or self-care (01) ==
LOC: ER 06:04
DX: T83.028A Displacement of other urinary catheter, initial encounter (principal); E11.9 Type 2 diabetes mellitus without complications; Z79.4 Long term (current) use of insulin; Z79.82 Long term (current) use of aspirin; Z79.899 Other long term (current) drug therapy; Z88.0 Allergy status to penicillin; Z88.8 Allergy status to other drugs, medicaments and biological substances
CPT/HCPCS: 51102; 99283-25

== ENCOUNTER 2020-09-21 05:25 | Emergency (ER) | payer MEDICARE, OTHER ==
[~2020-09-21] VITALS: Ht 165.1 cm; Wt 76.7 kg
[2020-09-21 07:39] LABS: Source, Urine Clean Catch
[2020-09-21 07:42] LABS: Appearance, Urine Clear (Clear); Bilirubin, Urine Neg (Neg); Blood, Urine 5+ (Neg); Color, Urine Yellow (P-Yellow); Glucose Qualitative, Urine Neg (Neg); Ketones, Urine Neg (Neg); Leukocyte Esterase, Urine 3+ (Neg); Nitrite, Urine Neg (Neg); Protein, Urine Neg (Neg); Specific Gravity, Urine 1.015 (1.003-1.022); Urobilinogen, Urine NORM (Normal)
[2020-09-21 08:01] LABS: Red Blood Cells, Urine 25-50 /hpf (0-2); Squamous Epithelial Cells Rare /hpf (Few)
[2020-09-21 08:02] LABS: Bacteria Few /hpf
[2020-09-21] MEDS ORDERED: CEFP200 PO (08:14)
[2020-09-21] MEDS ORDERED: LEVFLO500 PO (09:02)
== END 2020-09-21 09:05 | disposition home or self-care (01) ==
LOC: ER 05:25
PROVIDERS: Emergency Medicine
DX: T83.028A Displacement of other urinary catheter, initial encounter (principal); N39.0 Urinary tract infection, site not specified; E11.9 Type 2 diabetes mellitus without complications; J44.9 Chronic obstructive pulmonary disease, unspecified; I10 Essential (primary) hypertension; Z88.0 Allergy status to penicillin; Z88.1 Allergy status to other antibiotic agents; Z79.01 Long term (current) use of anticoagulants; Z86.73 Personal history of transient ischemic attack (TIA), and cerebral infarction without residual deficits
CPT/HCPCS: 81001; 87077; 87086; 87186; 99283-25

== ENCOUNTER → 2020-09-27 | Outpatient (CLI) | payer MEDICARE, OTHER ==
[~2020-09-27] MED LIST changes: +SULTRISS PO
[2020-09-27 19:46] LABS: Appearance, Urine Clear (Clear); Bilirubin, Urine Neg (Neg); Blood, Urine Neg (Neg); Color, Urine Yellow (P-Yellow); Glucose Qualitative, Urine Neg (Neg); Ketones, Urine Neg (Neg); Leukocyte Esterase, Urine Neg (Neg); Nitrite, Urine Neg (Neg); Protein, Urine Neg (Neg); Specific Gravity, Urine 1.015 (1.003-1.022); Urobilinogen, Urine NORM (Normal)
== END | disposition home or self-care (01) ==
LOC: LAB SHORT 16:53 → LAB 16:53
PROVIDERS: Physician Assistant
DX: N39.0 Urinary tract infection, site not specified (principal)
CPT/HCPCS: 81003

== ENCOUNTER 2020-10-18 19:18 | Emergency (ER) | payer MEDICARE, OTHER ==
[~2020-10-18] VITALS: Ht 165.1 cm; Wt 77.1 kg
[~2020-10-18 19:18] MED LIST changes: -SULTRISS PO
[2020-10-18 20:01] LABS: BASOPHILS ABSOLUTE AUTO 0.03 K/mm3 (0.00-0.23); BASOPHILS PERCENT AUTO 0 % (0-2); EOSINOPHILS ABSOLUTE AUTO 0.32 K/mm3 (0.00-0.68); EOSINOPHILS PERCENT AUTO 4 % (0-6); Hematocrit 35.6 % (33.0-51.0); Hemoglobin 11.1 g/dL (11.5-16.0); IMMATURE GRAN ABSOLUTE AUTO 0.03 K/mm3 (0.00-0.10); IMMATURE GRAN PERCENT AUTO 0 % (0-1); LYMPHOCYTES ABSOLUTE AUTO 2.77 K/mm3 (0.84-5.20); LYMPHOCYTES PERCENT AUTO 36 % (21-46); MONOCYTES ABSOLUTE AUTO 0.66 K/mm3 (0.16-1.47); MONOCYTES PERCENT AUTO 9 % (4-13); Mean Corpuscular HGB 28.6 pg (26.0-34.0); Mean Corpuscular HGB Conc 31.2 g/dL (31.5-36.5); Mean Corpuscular Volume 92 fL (80-100); Mean Platelet Volume 10.8 fL (9.1-12.4); NEUTROPHILS ABSOLUTE AUTO 3.99 K/mm3 (1.96-9.15); NEUTROPHILS PERCENT AUTO 51 % (41-73); Platelet Count 155 K/mm3 (150-400); RDW Coefficient Variation 12.5 % (11.7-14.2); RDW Standard Deviation 41.7 fL (35.1-46.3); Red Blood Cell Count 3.88 M/mm3 (3.80-5.20)
[2020-10-18 20:29] LABS: Alanine Aminotransfer (ALT/SGP 42 U/L (12-78); Albumin, Blood 3.2 g/dL (3.4-5.0); Albumin/Globulin Ratio 0.7 (0.8-1.8); Alk Phos 103 U/L (50-136); Anion Gap 6 mmol/L (6-16); Aspartate Aminotrans (AST/SGOT 30 U/L (12-37); Bilirubin, Total 0.1 mg/dL (0.1-1.0); Blood Urea Nitrogen 72 mg/dL (8-24); Bun/Creatinine Ratio 44.4 (12.0-20.0); CO2, Blood 28 mmol/L (21-32); Chloride, Blood 109 mmol/L (98-108); Creatinine, Blood 1.62 mg/dL (0.40-1.00); Globulin, Blood 4.4 g/dL (2.2-4.0); Glomerular Filtration Rate 33 (60-); Glucose, Blood 129 mg/dL (70-99); Sodium, Blood 143 mmol/L (136-145); Total Protein, Blood 7.6 g/dL (6.4-8.2); Troponin I <0.015 ng/mL (0.000-0.040)
[2020-10-18 22:09] LABS: Source, Urine Catheter
[2020-10-18 22:12] LABS: Bilirubin, Urine Neg (Neg); Blood, Urine 1+ (Neg); Glucose Qualitative, Urine Neg (Neg); Ketones, Urine Neg (Neg); Leukocyte Esterase, Urine 3+ (Neg); Nitrite, Urine Pos (Neg); Protein, Urine Neg (Neg); Urobilinogen, Urine NORM (Normal)
[2020-10-18 22:19] LABS: Appearance, Urine Hazy (Clear); Color, Urine Pale Yellow (P-Yellow)
[2020-10-18 22:21] LABS: Bacteria Mod /hpf; Red Blood Cells, Urine 0-2 /hpf (0-2); Squamous Epithelial Cells Rare /hpf (Few)
[2020-10-18] MEDS ORDERED: SULTRISS PO (22:39)
== END 2020-10-18 23:47 | disposition home or self-care (01) ==
LOC: ER 19:18
PROVIDERS: Emergency Medicine
DX: N39.0 Urinary tract infection, site not specified (principal); R60.0 Localized edema; E11.9 Type 2 diabetes mellitus without complications; I10 Essential (primary) hypertension; J44.9 Chronic obstructive pulmonary disease, unspecified; Z79.4 Long term (current) use of insulin; Z88.0 Allergy status to penicillin; Z88.1 Allergy status to other antibiotic agents; Z79.01 Long term (current) use of anticoagulants; Z86.73 Personal history of transient ischemic attack (TIA), and cerebral infarction without residual deficits; Z79.899 Other long term (current) drug therapy; Z87.891 Personal history of nicotine dependence
CPT/HCPCS: 36415; 80053; 81001; 83880; 84484; 85025; 87077; 87086; 87186; 99285; A9270-GY

== ENCOUNTER 2020-11-08 17:30 | Emergency (ER) | payer MEDICARE, OTHER ==
[~2020-11-08] VITALS: Ht 167.6 cm; Wt 74.8 kg
[~2020-11-08 17:30] MED LIST changes: +SULTRISS PO
== END 2020-11-08 23:00 | disposition home or self-care (01) ==
LOC: ER 17:30
DX: T83.038A Leakage of other urinary catheter, initial encounter (principal); E11.9 Type 2 diabetes mellitus without complications; J44.9 Chronic obstructive pulmonary disease, unspecified; I10 Essential (primary) hypertension; Z88.0 Allergy status to penicillin; Z88.1 Allergy status to other antibiotic agents; Z88.8 Allergy status to other drugs, medicaments and biological substances; Z79.4 Long term (current) use of insulin; Z79.899 Other long term (current) drug therapy; Z86.73 Personal history of transient ischemic attack (TIA), and cerebral infarction without residual deficits; Z87.891 Personal history of nicotine dependence
CPT/HCPCS: 99283

== ENCOUNTER 2020-11-27 11:09 | Emergency (ER) | payer MEDICARE, OTHER ==
[~2020-11-27] VITALS: Ht 165.1 cm; Wt 77.1 kg
[2020-11-27] MEDS ORDERED: ZYRTEC10 M2 PO (11:36)
[2020-11-27] MEDS ORDERED: TORSE20 PO (11:38)
[2020-11-27] MEDS ORDERED: SYSTANE GEL10 GM TOP (11:38)
[2020-11-27] MEDS ORDERED: THERA-D2000 UNIT PO (11:40)
== END 2020-11-27 12:29 | disposition home or self-care (01) ==
LOC: ER 11:09
DX: T83.028A Displacement of other urinary catheter, initial encounter (principal); I10 Essential (primary) hypertension; E11.9 Type 2 diabetes mellitus without complications; J44.9 Chronic obstructive pulmonary disease, unspecified; Z86.73 Personal history of transient ischemic attack (TIA), and cerebral infarction without residual deficits; Z79.4 Long term (current) use of insulin; Z79.82 Long term (current) use of aspirin; Z88.0 Allergy status to penicillin; Z88.1 Allergy status to other antibiotic agents; Z79.899 Other long term (current) drug therapy; Z87.891 Personal history of nicotine dependence
CPT/HCPCS: 51705; 99283-25

== ENCOUNTER 2020-12-01 14:45 | Emergency (ER) | payer MEDICARE, OTHER ==
[~2020-12-01] VITALS: Ht 167.6 cm; Wt 85.7 kg
[~2020-12-01 14:45] MED LIST changes: +SYSTANE GEL10 GM TOP; +THERA-D2000 UNIT PO; +TORSE20 PO
== END 2020-12-01 16:29 | disposition home or self-care (01) ==
LOC: ER 14:45
DX: T83.028A Displacement of other urinary catheter, initial encounter (principal); E11.9 Type 2 diabetes mellitus without complications; J44.9 Chronic obstructive pulmonary disease, unspecified; I10 Essential (primary) hypertension; Z88.0 Allergy status to penicillin; Z79.4 Long term (current) use of insulin; Z88.8 Allergy status to other drugs, medicaments and biological substances; Z88.1 Allergy status to other antibiotic agents; Z86.73 Personal history of transient ischemic attack (TIA), and cerebral infarction without residual deficits; Z79.899 Other long term (current) drug therapy
CPT/HCPCS: 99283-25

== ENCOUNTER 2020-12-02 10:24 | Emergency (ER) | payer MEDICARE, OTHER ==
[~2020-12-02] VITALS: Ht 165.1 cm; Wt 99.8 kg
== END 2020-12-02 12:56 | disposition home or self-care (01) ==
LOC: ER 10:24
DX: T83.028A Displacement of other urinary catheter, initial encounter (principal); E11.9 Type 2 diabetes mellitus without complications; J44.9 Chronic obstructive pulmonary disease, unspecified; I10 Essential (primary) hypertension; Z79.4 Long term (current) use of insulin; Z79.899 Other long term (current) drug therapy; Z88.0 Allergy status to penicillin; Z88.1 Allergy status to other antibiotic agents; Z79.01 Long term (current) use of anticoagulants; Z87.891 Personal history of nicotine dependence
CPT/HCPCS: 99283-25

== ENCOUNTER 2020-12-16 20:47 | Emergency (ER) | payer MEDICARE, OTHER ==
[~2020-12-16] VITALS: Ht 165.1 cm; Wt 77.1 kg
== END 2020-12-16 23:15 | disposition home or self-care (01) ==
LOC: ER 20:47
DX: Z43.5 Encounter for attention to cystostomy (principal); Z96.0 Presence of urogenital implants; E11.9 Type 2 diabetes mellitus without complications; J44.9 Chronic obstructive pulmonary disease, unspecified; I10 Essential (primary) hypertension; Z79.4 Long term (current) use of insulin; Z79.82 Long term (current) use of aspirin; Z88.0 Allergy status to penicillin; Z88.1 Allergy status to other antibiotic agents; Z88.8 Allergy status to other drugs, medicaments and biological substances; Z87.891 Personal history of nicotine dependence
CPT/HCPCS: 99282-25

== ENCOUNTER 2020-12-20 02:15 | Day surgery (SDC) | payer MEDICARE, OTHER | END 2020-12-20 15:03 | disposition home or self-care (01) | LOC: ATC 02:15 | DX: N39.0 Urinary tract infection, site not specified (principal); N31.9 Neuromuscular dysfunction of bladder, unspecified; E11.42 Type 2 diabetes mellitus with diabetic polyneuropathy; E11.610 Type 2 diabetes mellitus with diabetic neuropathic arthropathy; F11.21 Opioid dependence, in remission; F32.9 Major depressive disorder, single episode, unspecified; E11.51 Type 2 diabetes mellitus with diabetic peripheral angiopathy without gangrene; E11.22 Type 2 diabetes mellitus with diabetic chronic kidney disease; I12.9 Hypertensive chronic kidney disease with stage 1 through stage 4 chronic kidney disease, or unspecified chronic kidney disease; N18.30 Chronic kidney disease, stage 3 unspecified; I08.3 Combined rheumatic disorders of mitral, aortic and tricuspid valves; M10.9 Gout, unspecified; F41.9 Anxiety disorder, unspecified; J45.909 Unspecified asthma, uncomplicated; M19.90 Unspecified osteoarthritis, unspecified site; E66.9 Obesity, unspecified; N25.81 Secondary hyperparathyroidism of renal origin; Z96.0 Presence of urogenital implants; Z88.1 Allergy status to other antibiotic agents; Z88.0 Allergy status to penicillin; Z88.8 Allergy status to other drugs, medicaments and biological substances; Z79.82 Long term (current) use of aspirin; Z79.4 Long term (current) use of insulin; Z86.73 Personal history of transient ischemic attack (TIA), and cerebral infarction without residual deficits; Z87.891 Personal history of nicotine dependence | CPT/HCPCS: 51705 ==

== ENCOUNTER 2020-12-22 20:54 | Emergency (ER) | payer MEDICARE, OTHER ==
[~2020-12-22] VITALS: Ht 167.6 cm; Wt 74.8 kg
== END 2020-12-22 23:42 | disposition home or self-care (01) ==
LOC: ER 20:54
DX: T83.028A Displacement of other urinary catheter, initial encounter (principal); E11.9 Type 2 diabetes mellitus without complications; J44.9 Chronic obstructive pulmonary disease, unspecified; I10 Essential (primary) hypertension; Z87.891 Personal history of nicotine dependence; Z79.4 Long term (current) use of insulin; Z79.899 Other long term (current) drug therapy; Z88.0 Allergy status to penicillin; Z88.1 Allergy status to other antibiotic agents; Z91.041 Radiographic dye allergy status
CPT/HCPCS: 99283

== ENCOUNTER → 2020-12-24 | Outpatient (CLI) | payer MEDICARE, OTHER | END | disposition home or self-care (01) | LOC: LAB 16:44 → LAB SHORT 16:44 | DX: N39.0 Urinary tract infection, site not specified (principal) | CPT/HCPCS: 87077; 87086; 87186 ==

== ENCOUNTER 2021-01-21 11:04 | Emergency (ER) | payer MEDICARE, OTHER ==
[~2021-01-21] VITALS: Ht 172.7 cm; Wt 74.8 kg
[2021-01-21 11:45] LABS: BASOPHILS ABSOLUTE AUTO 0.03 K/mm3 (0.00-0.23); BASOPHILS PERCENT AUTO 0 % (0-2); EOSINOPHILS ABSOLUTE AUTO 0.02 K/mm3 (0.00-0.68); EOSINOPHILS PERCENT AUTO 0 % (0-6); Hematocrit 38.2 % (33.0-51.0); Hemoglobin 12.2 g/dL (11.5-16.0); IMMATURE GRAN ABSOLUTE AUTO 0.06 K/mm3 (0.00-0.10); IMMATURE GRAN PERCENT AUTO 1 % (0-1); LYMPHOCYTES ABSOLUTE AUTO 1.49 K/mm3 (0.84-5.20); LYMPHOCYTES PERCENT AUTO 14 % (21-46); MONOCYTES ABSOLUTE AUTO 0.35 K/mm3 (0.16-1.47); MONOCYTES PERCENT AUTO 3 % (4-13); Mean Corpuscular HGB 28.6 pg (26.0-34.0); Mean Corpuscular HGB Conc 31.9 g/dL (31.5-36.5); Mean Corpuscular Volume 90 fL (80-100); Mean Platelet Volume 10.3 fL (9.1-12.4); NEUTROPHILS PERCENT AUTO 82 % (41-73); Platelet Count 188 K/mm3 (150-400); RDW Coefficient Variation 13.1 % (11.7-14.2); RDW Standard Deviation 42.5 fL (35.1-46.3); Red Blood Cell Count 4.27 M/mm3 (3.80-5.20); White Blood Cell Count 10.55 K/mm3 (4.00-11.30)
[2021-01-21 11:52] LABS: Source, Urine Clean Catch
[2021-01-21 11:57] LABS: Bilirubin, Urine Neg (Neg); Blood, Urine 4+ (Neg); Glucose Qualitative, Urine 4+ (Neg); Ketones, Urine 3+ (Neg); Leukocyte Esterase, Urine 3+ (Neg); Nitrite, Urine Pos (Neg); Protein, Urine 3+ (Neg); Urobilinogen, Urine NORM (Normal)
[2021-01-21 12:02] LABS: Albumin, Blood 3.1 g/dL (3.4-5.0); Albumin/Globulin Ratio 0.7 (0.8-1.8); Bilirubin, Total 0.4 mg/dL (0.1-1.0); Bun/Creatinine Ratio 42.6 (12.0-20.0); Calcium, Blood 9.2 mg/dL (8.5-10.1); Creatine Kinase MB 14.6 ng/mL (0.0-3.6); Creatine Kinase MB Index 3.3 (0.0-4.0); Creatinine, Blood 1.22 mg/dL (0.40-1.00); Globulin, Blood 4.6 g/dL (2.2-4.0); Potassium, Blood 4.6 mmol/L (3.5-5.5); Total Protein, Blood 7.7 g/dL (6.4-8.2); Troponin I 0.036 ng/mL (0.000-0.040)
[2021-01-21 12:03] LABS: Appearance, Urine Hazy (Clear); Color, Urine Yellow (P-Yellow)
[2021-01-21 12:04] LABS: White Blood Cells, Urine 25-50 /hpf (0-5)
[2021-01-21 12:05] LABS: Bacteria Many /hpf; Red Blood Cells, Urine 0-2 /hpf (0-2); Squamous Epithelial Cells Rare /hpf (Few)
[2021-01-21 12:06] LABS: Amorphous Light (0-Heavy)
[2021-01-21 12:22] LABS: U Amphetamine Screen Not Detected; U Barbituate Screen Not Detected; U Benzodiazapine Screen Not Detected; U Buprenorphine Screen Not Detected; U Cannabinoids Screen Not Detected; U Cocaine Screen Not Detected; U Methadone Screen Not Detected; U Methamphetamine Screen Not Detected; U Opiates Screen Not Detected; U Oxycodone Screen Not Detected; U Phencyclidine Screen Not Detected; U Propoxyphene Screen Not Detected
[2021-01-21 13:09] LABS: Base Excess Venous -6.7 mmol/L; Bicarbonate Venous 18.8 mmol/L (24.0-30.0); PCO2 Venous 46.2 mmHg (38-42); pH Blood Venous 7.25 (7.34-7.37)
[2021-01-21] MEDS ORDERED: CEFP200 PO (14:21)
== END 2021-01-21 16:10 | disposition home or self-care (01) ==
LOC: ER 11:04
PROVIDERS: Emergency Medicine
DX: G93.40 Encephalopathy, unspecified (principal); E11.65 Type 2 diabetes mellitus with hyperglycemia; I10 Essential (primary) hypertension; N39.0 Urinary tract infection, site not specified; Z79.4 Long term (current) use of insulin; Z79.82 Long term (current) use of aspirin; Z79.899 Other long term (current) drug therapy; Z66 Do not resuscitate; Z88.0 Allergy status to penicillin; Z88.1 Allergy status to other antibiotic agents; Z79.01 Long term (current) use of anticoagulants; W19.XXXA Unspecified fall, initial encounter; Y93.01 Activity, walking, marching and hiking
CPT/HCPCS: 36415; 70450; 80053; 81001; 82550; 82553; 82803; 82947; 83605; 84484; 85025; 87040; 87077; 87086; 87186; 93005; 93010; 96361; 96365; 99285-25; J0696; J7030

== ENCOUNTER 2021-01-22 08:47 | Emergency (ER) | payer MEDICARE, OTHER ==
[~2021-01-22] VITALS: Ht 167.6 cm; Wt 77.1 kg
[2021-01-22 09:36] LABS: BASOPHILS ABSOLUTE AUTO 0.05 K/mm3 (0.00-0.23); BASOPHILS PERCENT AUTO 1 % (0-2); EOSINOPHILS ABSOLUTE AUTO 0.06 K/mm3 (0.00-0.68); EOSINOPHILS PERCENT AUTO 1 % (0-6); Hematocrit 39.2 % (33.0-51.0); Hemoglobin 12.4 g/dL (11.5-16.0); IMMATURE GRAN ABSOLUTE AUTO 0.07 K/mm3 (0.00-0.10); IMMATURE GRAN PERCENT AUTO 1 % (0-1); LYMPHOCYTES ABSOLUTE AUTO 2.09 K/mm3 (0.84-5.20); LYMPHOCYTES PERCENT AUTO 19 % (21-46); MONOCYTES ABSOLUTE AUTO 0.54 K/mm3 (0.16-1.47); MONOCYTES PERCENT AUTO 5 % (4-13); Mean Corpuscular HGB 28.1 pg (26.0-34.0); Mean Corpuscular HGB Conc 31.6 g/dL (31.5-36.5); Mean Corpuscular Volume 89 fL (80-100); Mean Platelet Volume 10.4 fL (9.1-12.4); NEUTROPHILS ABSOLUTE AUTO 8.13 K/mm3 (1.96-9.15); NEUTROPHILS PERCENT AUTO 74 % (41-73); Platelet Count 215 K/mm3 (150-400); RDW Coefficient Variation 13.3 % (11.7-14.2); RDW Standard Deviation 43.4 fL (35.1-46.3); Red Blood Cell Count 4.42 M/mm3 (3.80-5.20); White Blood Cell Count 10.94 K/mm3 (4.00-11.30)
[2021-01-22 09:58] LABS: Albumin, Blood 3.1 g/dL (3.4-5.0); Albumin/Globulin Ratio 0.7 (0.8-1.8); Bilirubin, Total 0.4 mg/dL (0.1-1.0); Bun/Creatinine Ratio 36.6 (12.0-20.0); Creatinine, Blood 1.34 mg/dL (0.40-1.00); Globulin, Blood 4.6 g/dL (2.2-4.0); Total Protein, Blood 7.7 g/dL (6.4-8.2)
== END 2021-01-22 14:20 | disposition home or self-care (01) ==
LOC: ER 08:47
PROVIDERS: Physician Assistant
DX: M53.3 Sacrococcygeal disorders, not elsewhere classified (principal); G89.29 Other chronic pain; Z79.899 Other long term (current) drug therapy; Z79.82 Long term (current) use of aspirin; Z88.0 Allergy status to penicillin; Z88.1 Allergy status to other antibiotic agents
CPT/HCPCS: 36415; 72100; 72220; 80053; 82947; 85025; 99284-25; A9270; J7030

== ENCOUNTER → 2021-02-03 | Outpatient (CLI) | payer MEDICARE, OTHER ==
[2021-02-03 15:50] LABS: Source, Urine Catheter
[2021-02-03 17:24] LABS: Appearance, Urine Hazy (Clear); Bilirubin, Urine Neg (Neg); Blood, Urine 1+ (Neg); Color, Urine Yellow (P-Yellow); Glucose Qualitative, Urine Neg (Neg); Ketones, Urine Neg (Neg); Leukocyte Esterase, Urine 1+ (Neg); Nitrite, Urine Neg (Neg); Protein, Urine 3+ (Neg); Specific Gravity, Urine 1.015 (1.003-1.022); Urobilinogen, Urine NORM (Normal)
[2021-02-03 18:38] LABS: Amorphous Heavy (0-Heavy); Bacteria Mod /hpf; Red Blood Cells, Urine 0-2 /hpf (0-2); Squamous Epithelial Cells Not Seen /hpf (Few)
== END | disposition home or self-care (01) ==
LOC: LAB SHORT 15:20 → LAB 15:20
PROVIDERS: Physician Assistant Medical
DX: N39.0 Urinary tract infection, site not specified (principal)
CPT/HCPCS: 81001; 87077; 87086; 87186

== ENCOUNTER 2021-02-17 13:43 | Emergency (ER) | payer MEDICARE, OTHER ==
[~2021-02-17] VITALS: Ht 160 cm; Wt 65.8 kg
[2021-02-17 14:55] LABS: Source, Urine Catheter
[2021-02-17 15:00] LABS: Appearance, Urine Hazy (Clear); Bilirubin, Urine Neg (Neg); Blood, Urine 4+ (Neg); Color, Urine Yellow (P-Yellow); Glucose Qualitative, Urine Neg (Neg); Ketones, Urine Neg (Neg); Leukocyte Esterase, Urine 3+ (Neg); Nitrite, Urine Pos (Neg); Protein, Urine 3+ (Neg); Urobilinogen, Urine NORM (Normal)
[2021-02-17 15:14] LABS: White Blood Cells, Urine 25-50 /hpf (0-5)
[2021-02-17 15:15] LABS: Bacteria Many /hpf; Squamous Epithelial Cells Rare /hpf (Few)
[2021-02-17 15:16] LABS: Triple Phosphate Crystals Many /hpf
== END 2021-02-17 15:00 | disposition home or self-care (01) ==
LOC: ER 13:43
PROVIDERS: Physician Assistant
DX: T83.198A Other mechanical complication of other urinary devices and implants, initial encounter (principal); E11.9 Type 2 diabetes mellitus without complications; Z88.0 Allergy status to penicillin; Z88.1 Allergy status to other antibiotic agents; Z88.8 Allergy status to other drugs, medicaments and biological substances; Z79.4 Long term (current) use of insulin; Z79.899 Other long term (current) drug therapy
CPT/HCPCS: 51102; 51705; 81001; 87077; 87086; 87186; 99283-25; C2627

== ENCOUNTER 2021-02-20 14:02 | Emergency (ER) | payer MEDICARE, OTHER ==
[~2021-02-20] VITALS: Ht 165.1 cm; Wt 73.5 kg
[2021-02-20 17:44] LABS: Source, Urine Catheter
[2021-02-20 17:47] LABS: Appearance, Urine Hazy (Clear); Bilirubin, Urine Neg (Neg); Blood, Urine 5+ (Neg); Color, Urine Yellow (P-Yellow); Glucose Qualitative, Urine Neg (Neg); Ketones, Urine Neg (Neg); Leukocyte Esterase, Urine 3+ (Neg); Nitrite, Urine Pos (Neg); Protein, Urine 2+ (Neg); Specific Gravity, Urine 1.015 (1.003-1.022); Urobilinogen, Urine NORM (Normal)
[2021-02-20 18:16] LABS: Red Blood Cells, Urine 25-50 /hpf (0-2); Squamous Epithelial Cells Few /hpf (Few)
[2021-02-20 18:17] LABS: Bacteria Mod /hpf
== END 2021-02-20 17:50 | disposition home or self-care (01) ==
LOC: ER 14:02
PROVIDERS: Physician Assistant
DX: T83.038A Leakage of other urinary catheter, initial encounter (principal); Z79.899 Other long term (current) drug therapy
CPT/HCPCS: 51705; 81001; 87077; 87086; 87186; 99283-25; C2627

== ENCOUNTER 2021-02-21 15:42 | Emergency (ER) | payer MEDICARE, OTHER ==
[~2021-02-21] VITALS: Ht 165.1 cm; Wt 73.5 kg
== END 2021-02-21 19:41 | disposition home or self-care (01) ==
LOC: ER 15:42
DX: T83.031A Leakage of indwelling urethral catheter, initial encounter (principal); E11.9 Type 2 diabetes mellitus without complications
CPT/HCPCS: 51102; 99282-25; C2627

== ENCOUNTER 2021-03-02 11:06 | Emergency (ER) | payer MEDICARE, OTHER ==
[~2021-03-02] VITALS: Ht 162.6 cm; Wt 74.8 kg
== END 2021-03-02 12:41 | disposition home or self-care (01) ==
LOC: ER 11:06
DX: T83.031A Leakage of indwelling urethral catheter, initial encounter (principal); E11.9 Type 2 diabetes mellitus without complications; Z88.8 Allergy status to other drugs, medicaments and biological substances; Z79.82 Long term (current) use of aspirin; Z79.899 Other long term (current) drug therapy; Z87.891 Personal history of nicotine dependence
CPT/HCPCS: 99282

== ENCOUNTER → 2021-04-16 | Outpatient (CLI) | payer MEDICARE, OTHER | END | disposition home or self-care (01) | LOC: LAB SHORT 15:20 → LAB 15:20 → LAB FUT 04-15 17:35 | DX: N39.0 Urinary tract infection, site not specified (principal) | CPT/HCPCS: 87077; 87086; 87186 ==

== ENCOUNTER → 2021-05-07 | Outpatient (CLI) | payer MEDICARE, OTHER ==
[2021-05-07 17:15] LABS: Appearance, Urine Hazy (Clear); Bilirubin, Urine Neg (Neg); Blood, Urine 1+ (Neg); Color, Urine Yellow (P-Yellow); Glucose Qualitative, Urine 3+ (Neg); Ketones, Urine Neg (Neg); Leukocyte Esterase, Urine 2+ (Neg); Nitrite, Urine Pos (Neg); Protein, Urine 2+ (Neg); Specific Gravity, Urine 1.015 (1.003-1.022); Urobilinogen, Urine NORM (Normal)
[2021-05-07 17:47] LABS: Bacteria Many /hpf; Triple Phosphate Crystals Many /hpf
[2021-05-07 17:49] LABS: Amorphous Light (0-Heavy); Red Blood Cells, Urine 0-2 /hpf (0-2); Squamous Epithelial Cells Rare /hpf (Few)
== END | disposition home or self-care (01) ==
LOC: LAB 15:28 → LAB SHORT 15:28 → EDSTATUS 05-06 10:45 → LAB FUT 05-06 10:45
PROVIDERS: Nurse Practitioner Primary Care
DX: N39.0 Urinary tract infection, site not specified (principal)
CPT/HCPCS: 81001; 87077; 87086; 87186

== ENCOUNTER → 2021-05-27 | Outpatient (CLI) | payer MEDICARE, OTHER | LOC: LAB 08:17 | DX: N39.0 Urinary tract infection, site not specified (principal); Z88.3 Allergy status to other anti-infective agents ==

== ENCOUNTER → 2021-07-10 | Outpatient (CLI) | payer MEDICARE, OTHER ==
[2021-07-10 15:35] LABS: Appearance, Urine Clear (Clear); Bilirubin, Urine Neg (Neg); Blood, Urine Neg (Neg); Color, Urine Yellow (P-Yellow); Glucose Qualitative, Urine Neg (Neg); Ketones, Urine Neg (Neg); Leukocyte Esterase, Urine 3+ (Neg); Nitrite, Urine Pos (Neg); Protein, Urine 1+ (Neg); Specific Gravity, Urine 1.005 (1.003-1.022); Urobilinogen, Urine NORM (Normal)
[2021-07-10 16:24] LABS: Bacteria Mod /hpf; Red Blood Cells, Urine 0-2 /hpf (0-2); Squamous Epithelial Cells Rare /hpf (Few)
== END | disposition home or self-care (01) ==
LOC: LAB SHORT 13:00 → LAB 13:00
PROVIDERS: Nurse Practitioner Primary Care
DX: N39.0 Urinary tract infection, site not specified (principal)
CPT/HCPCS: 81001; 87077; 87086; 87186

== ENCOUNTER → 2021-12-08 | Outpatient (CLI) | payer MEDICARE, OTHER ==
[2021-12-08 19:10] LABS: Bilirubin, Urine Neg (Neg); Blood, Urine Neg (Neg); Glucose Qualitative, Urine Neg (Neg); Ketones, Urine Neg (Neg); Leukocyte Esterase, Urine 3+ (Neg); Nitrite, Urine Pos (Neg); Protein, Urine 3+ (Neg); Specific Gravity, Urine 1.015 (1.003-1.022); Urobilinogen, Urine NORM (Normal)
[2021-12-08 19:23] LABS: Appearance, Urine Hazy (Clear); Color, Urine Pale Yellow (P-Yellow)
[2021-12-08 19:25] LABS: Amorphous Mod (0-Heavy); Bacteria Many /hpf; Granular Casts 0-2 /lpf (0); Hyaline Casts 0-2 /lpf (0-2); Red Blood Cells, Urine 0-2 /hpf (0-2); Squamous Epithelial Cells Few /hpf (Few)
== END ==
LOC: LAB SHORT 17:57
PROVIDERS: Physician Assistant Medical
DX: E11.618 Type 2 diabetes mellitus with other diabetic arthropathy (principal); Z79.4 Long term (current) use of insulin
CPT/HCPCS: 81001; 87077; 87086; 87186

== ENCOUNTER → 2022-02-20 | Outpatient (CLI) | payer MEDICARE, OTHER ==
[2022-02-20 15:19] LABS: Source, Urine Suprapubic Cath
[2022-02-20 15:58] LABS: Appearance, Urine Clear (Clear); Bilirubin, Urine Neg (Neg); Blood, Urine 1+ (Neg); Color, Urine Yellow (P-Yellow); Glucose Qualitative, Urine Neg (Neg); Ketones, Urine Neg (Neg); Leukocyte Esterase, Urine 2+ (Neg); Nitrite, Urine Pos (Neg); Protein, Urine 3+ (Neg); Urobilinogen, Urine NORM (Normal)
[2022-02-20 16:21] LABS: Bacteria Many /hpf; Squamous Epithelial Cells Mod /hpf (Few); White Blood Cells, Urine 25-50 /hpf (0-5)
== END | disposition home or self-care (01) ==
LOC: LAB SHORT 15:15
PROVIDERS: Nurse Practitioner Primary Care
DX: N39.0 Urinary tract infection, site not specified (principal)
CPT/HCPCS: 81001; 87077; 87086; 87186

== ENCOUNTER 2022-04-20 11:56 | Emergency (ER) | payer MEDICARE, OTHER ==
[~2022-04-20] VITALS: Ht 152.4 cm; Wt 63.5 kg
== END 2022-04-20 15:05 | disposition home or self-care (01) ==
LOC: ER 11:56
DX: Z46.6 Encounter for fitting and adjustment of urinary device (principal); Z88.8 Allergy status to other drugs, medicaments and biological substances; Z79.899 Other long term (current) drug therapy
CPT/HCPCS: 51102; 99283-25

== ENCOUNTER 2022-04-24 15:33 | Emergency (ER) | payer MEDICARE, OTHER ==
[~2022-04-24] VITALS: Ht 167.6 cm; Wt 72.6 kg
== END 2022-04-24 18:22 | disposition home or self-care (01) ==
LOC: ER 15:33
DX: Z46.6 Encounter for fitting and adjustment of urinary device (principal); E11.9 Type 2 diabetes mellitus without complications; Z79.899 Other long term (current) drug therapy; Z79.4 Long term (current) use of insulin; Z88.8 Allergy status to other drugs, medicaments and biological substances; Z87.891 Personal history of nicotine dependence
CPT/HCPCS: 51705; 99283-25; C2627

== ENCOUNTER → 2022-07-02 | Outpatient (CLI) | payer MEDICARE, OTHER ==
[2022-07-02 12:19] LABS: Source, Urine Clean Catch
[2022-07-02 13:20] LABS: Appearance, Urine Clear (Clear); Bilirubin, Urine Neg (Neg); Blood, Urine 1+ (Neg); Color, Urine Yellow (P-Yellow); Glucose Qualitative, Urine Neg (Neg); Ketones, Urine Neg (Neg); Leukocyte Esterase, Urine Neg (Neg); Nitrite, Urine Pos (Neg); Protein, Urine 3+ (Neg); Urobilinogen, Urine NORM (Normal)
[2022-07-02 13:45] LABS: Red Blood Cells, Urine 0-2 /hpf (0-2); White Blood Cells, Urine 0-2 /hpf (0-5)
[2022-07-02 13:46] LABS: Bacteria Mod /hpf; Squamous Epithelial Cells Rare /hpf (Few)
== END | disposition home or self-care (01) ==
LOC: LAB SHORT 12:16
PROVIDERS: Student in an Organized Health Care Education/Training Program
DX: F03.91 Unspecified dementia, unspecified severity, with behavioral disturbance (principal)
CPT/HCPCS: 81001; 87077; 87086; 87186

== ENCOUNTER 2022-08-19 13:58 | Emergency (ER) | payer MEDICARE, OTHER ==
[~2022-08-19] VITALS: Ht 170.2 cm; Wt 61.2 kg
== END 2022-08-19 17:34 | disposition home or self-care (01) ==
LOC: ER 13:58
DX: M54.50 Low back pain, unspecified (principal); E11.9 Type 2 diabetes mellitus without complications; W05.0XXA Fall from non-moving wheelchair, initial encounter; Z79.01 Long term (current) use of anticoagulants; Z79.4 Long term (current) use of insulin; Z79.899 Other long term (current) drug therapy; Z87.891 Personal history of nicotine dependence
CPT/HCPCS: 72100; 93005; 93010; 99284-25

== ENCOUNTER 2022-08-27 19:26 | Emergency (ER) | payer MEDICARE, OTHER ==
[~2022-08-27] VITALS: Ht 170.2 cm; Wt 61.2 kg
[2022-08-27 20:20] LABS: BASOPHILS ABSOLUTE AUTO 0.02 K/mm3 (0.00-0.23); BASOPHILS PERCENT AUTO 0 % (0-2); EOSINOPHILS ABSOLUTE AUTO 0.18 K/mm3 (0.00-0.68); EOSINOPHILS PERCENT AUTO 2 % (0-6); Hematocrit 30.5 % (33.0-51.0); IMMATURE GRAN ABSOLUTE AUTO 0.02 K/mm3 (0.00-0.10); IMMATURE GRAN PERCENT AUTO 0 % (0-1); LYMPHOCYTES ABSOLUTE AUTO 1.41 K/mm3 (0.84-5.20); LYMPHOCYTES PERCENT AUTO 18 % (21-46); MONOCYTES PERCENT AUTO 9 % (4-13); Mean Corpuscular HGB 29.7 pg (26.0-34.0); Mean Corpuscular HGB Conc 32.8 g/dL (31.5-36.5); Mean Corpuscular Volume 91 fL (80-100); Mean Platelet Volume 10.2 fL (9.1-12.4); NEUTROPHILS ABSOLUTE AUTO 5.65 K/mm3 (1.96-9.15); NEUTROPHILS PERCENT AUTO 71 % (41-73); Platelet Count 146 K/mm3 (150-400); RDW Coefficient Variation 13.9 % (11.7-14.2); Red Blood Cell Count 3.37 M/mm3 (3.80-5.20); White Blood Cell Count 7.98 K/mm3 (4.00-11.30)
[2022-08-27 20:22] LABS: Source, Urine Suprapubic Cath
[2022-08-27 20:32] LABS: Bilirubin, Urine Neg (Neg); Blood, Urine 4+ (Neg); Glucose Qualitative, Urine 1+ (Neg); Ketones, Urine 1+ (Neg); Leukocyte Esterase, Urine 3+ (Neg); Nitrite, Urine Pos (Neg); Protein, Urine 4+ (Neg); Specific Gravity, Urine 1.015 (1.003-1.022); Urobilinogen, Urine NORM (Normal)
[2022-08-27 20:39] LABS: Albumin, Blood 3.2 g/dL (3.4-5.0); Albumin/Globulin Ratio 0.8 (0.8-1.8); Bilirubin, Total 0.2 mg/dL (0.1-1.0); Bun/Creatinine Ratio 36.7 (12.0-20.0); Calcium, Blood 8.9 mg/dL (8.5-10.1); Creatinine, Blood 1.58 mg/dL (0.40-1.00); Globulin, Blood 3.8 g/dL (2.2-4.0); Potassium, Blood 4.1 mmol/L (3.5-5.5)
[2022-08-27 20:40] LABS: Appearance, Urine Clear (Clear); Color, Urine Pale Yellow (P-Yellow)
[2022-08-27 20:41] LABS: Bacteria Many /hpf; Hyaline Casts 0-2 /lpf (0-2); Red Blood Cells, Urine TNTC /hpf (0-2); Squamous Epithelial Cells Mod /hpf (Few); Transitional Epithelial Cells Rare /hpf (0-Rare); WBC Cast 0-2 /lpf (0); White Blood Cells, Urine TNTC /hpf (0-5)
[2022-08-27] MEDS ORDERED: CLIN300 PO (23:58)
[2022-08-27] MEDS ORDERED: CEFP200 PO (23:58)
== END 2022-08-28 01:11 | disposition home or self-care (01) ==
LOC: ER 19:26
PROVIDERS: Student in an Organized Health Care Education/Training Program
DX: L03.116 Cellulitis of left lower limb (principal); L03.115 Cellulitis of right lower limb; N39.0 Urinary tract infection, site not specified; W18.30XA Fall on same level, unspecified, initial encounter
CPT/HCPCS: 36415; 80053; 81001; 85025; 87077; 87086; 87186; 93005; 93010; J0696

== ENCOUNTER 2022-09-14 14:18 | Inpatient (IN) | payer MEDICARE, OTHER ==
[~2022-09-14] VITALS: Ht 167.6 cm; Wt 65.8 kg
[~2022-09-14 14:18] MED LIST changes: -BASAGLAR K100 UNIT/1; +BASAGLAR K100 UNIT/1 SC; +CLIN300 PO; -NOVOLOG100 UNIT/3; +NOVOLOG100 UNIT/3 SC; +SERT100 PO; -SERT50 PO
[2022-09-14 15:27] LABS: BASOPHILS ABSOLUTE AUTO 0.05 K/mm3 (0.00-0.23); BASOPHILS PERCENT AUTO 1 % (0-2); EOSINOPHILS ABSOLUTE AUTO 0.07 K/mm3 (0.00-0.68); EOSINOPHILS PERCENT AUTO 1 % (0-6); Hematocrit 32.6 % (33.0-51.0); Hemoglobin 10.5 g/dL (11.5-16.0); IMMATURE GRAN ABSOLUTE AUTO 0.08 K/mm3 (0.00-0.10); IMMATURE GRAN PERCENT AUTO 1 % (0-1); LYMPHOCYTES ABSOLUTE AUTO 2.23 K/mm3 (0.84-5.20); LYMPHOCYTES PERCENT AUTO 24 % (21-46); MONOCYTES PERCENT AUTO 11 % (4-13); Mean Corpuscular HGB 29.4 pg (26.0-34.0); Mean Corpuscular HGB Conc 32.2 g/dL (31.5-36.5); Mean Corpuscular Volume 91 fL (80-100); Mean Platelet Volume 10.3 fL (9.1-12.4); NEUTROPHILS ABSOLUTE AUTO 6.01 K/mm3 (1.96-9.15); NEUTROPHILS PERCENT AUTO 64 % (41-73); Platelet Count 158 K/mm3 (150-400); RDW Coefficient Variation 14.6 % (11.7-14.2); RDW Standard Deviation 48.7 fL (35.1-46.3); Red Blood Cell Count 3.57 M/mm3 (3.80-5.20); White Blood Cell Count 9.44 K/mm3 (4.00-11.30)
[2022-09-14 15:51] LABS: Albumin, Blood 3.1 g/dL (3.4-5.0); Albumin/Globulin Ratio 0.8 (0.8-1.8); Bilirubin, Total 0.4 mg/dL (0.1-1.0); Bun/Creatinine Ratio 38.9 (12.0-20.0); Calcium, Blood 10.5 mg/dL (8.5-10.1); Creatinine, Blood 1.31 mg/dL (0.40-1.00); Potassium, Blood 4.2 mmol/L (3.5-5.5); Total Protein, Blood 7.1 g/dL (6.4-8.2)
[2022-09-14 16:39] LABS: Source, Urine Suprapubic Cath
[2022-09-14 16:43] LABS: Appearance, Urine Hazy (Clear); Bilirubin, Urine Neg (Neg); Blood, Urine 2+ (Neg); Color, Urine Yellow (P-Yellow); Glucose Qualitative, Urine Neg (Neg); Ketones, Urine Neg (Neg); Leukocyte Esterase, Urine 2+ (Neg); Nitrite, Urine Pos (Neg); Protein, Urine 4+ (Neg); Urobilinogen, Urine NORM (Normal)
[2022-09-14 16:53] LABS: Bacteria Mod /hpf; Granular Casts 0-2 /lpf (0); Hyaline Casts 0-2 /lpf (0-2); Renal Epithelial Rare /hpf (0-Rare); Squamous Epithelial Cells Rare /hpf (Few)
[2022-09-14 19:24] LABS: U Amphetamine Screen Not Detected; U Barbituate Screen Not Detected; U Benzodiazapine Screen Not Detected; U Buprenorphine Screen Not Detected; U Cannabinoids Screen Not Detected; U Cocaine Screen Not Detected; U Methadone Screen Not Detected; U Methamphetamine Screen Not Detected; U Opiates Screen Not Detected; U Oxycodone Screen Not Detected; U Phencyclidine Screen Not Detected; U Propoxyphene Screen Not Detected
[2022-09-15] MEDS ORDERED: Keflex250 MG PO (00:28)
[2022-09-15] MEDS ORDERED: RISP1 PO (00:33)
[2022-09-15 05:48] LABS: BASOPHILS ABSOLUTE AUTO 0.03 K/mm3 (0.00-0.23); BASOPHILS PERCENT AUTO 0 % (0-2); EOSINOPHILS ABSOLUTE AUTO 0.31 K/mm3 (0.00-0.68); EOSINOPHILS PERCENT AUTO 4 % (0-6); Hemoglobin 9.4 g/dL (11.5-16.0); IMMATURE GRAN ABSOLUTE AUTO 0.05 K/mm3 (0.00-0.10); IMMATURE GRAN PERCENT AUTO 1 % (0-1); LYMPHOCYTES ABSOLUTE AUTO 2.02 K/mm3 (0.84-5.20); LYMPHOCYTES PERCENT AUTO 26 % (21-46); MONOCYTES ABSOLUTE AUTO 0.74 K/mm3 (0.16-1.47); MONOCYTES PERCENT AUTO 9 % (4-13); Mean Corpuscular HGB 28.8 pg (26.0-34.0); Mean Corpuscular HGB Conc 31.3 g/dL (31.5-36.5); Mean Corpuscular Volume 92 fL (80-100); Mean Platelet Volume 10.3 fL (9.1-12.4); NEUTROPHILS ABSOLUTE AUTO 4.74 K/mm3 (1.96-9.15); NEUTROPHILS PERCENT AUTO 60 % (41-73); Platelet Count 143 K/mm3 (150-400); RDW Coefficient Variation 14.6 % (11.7-14.2); Red Blood Cell Count 3.26 M/mm3 (3.80-5.20); White Blood Cell Count 7.89 K/mm3 (4.00-11.30)
[2022-09-15 06:22] LABS: Albumin, Blood 2.6 g/dL (3.4-5.0); Albumin/Globulin Ratio 0.7 (0.8-1.8); Bilirubin, Total 0.2 mg/dL (0.1-1.0); Bun/Creatinine Ratio 44.5 (12.0-20.0); Calcium, Blood 9.3 mg/dL (8.5-10.1); Creatinine, Blood 1.1 mg/dL (0.40-1.00); Globulin, Blood 3.6 g/dL (2.2-4.0); Potassium, Blood 3.7 mmol/L (3.5-5.5); Total Protein, Blood 6.2 g/dL (6.4-8.2)
--- NOTE | 2022-09-15 06:42 | NUR ---
PT ON NPO STATUS AND NOTED TO HAVE GLUCOSE THIS AM OF 68. CALL TO HOSPITALIST; ORDER TO GIVE ONE AMP D-50.
--- NOTE | 2022-09-15 07:36 | NUR ---
VETERINARY VIROLOGIST SUMMARY: A&Ox2 TO SELF AND SOMEWHAT TO SITUATION/PLACE. VERY AGITATED AND OBSTINENT WITH CARE. REFUSED ADMISSION ASSESSMENT. NPO STATUS AND UPSET SHE CANNOT EAT EVEN THOUGH SHE IS DIABETIC. DESATTING INTO MID-TO-LOW 80S AND REFUSES OXYGEN. SLEPT MAJORITY OF TIME AFTER BEING ADMITTED TO FLOOR BUT "SWATTED" THIS RN AWAY EVERY TIME AN ASSESSMENT WAS ATTEMPTED. DID ULTIMATELY AGREE TO LOVENOX INJECTION AND FLUID ADMINISTRATION. SUPRAPUBIC CATHETER PATENT AND DRAINING. NO ACUTE EVENTS T/O THE NIGHT. REPORT TO ONCOMING RN.
--- NOTE | 2022-09-15 19:53 | NUR ---
SHIFT SUMMARY: PT A/O TO SELF, IRRITABLE AND REFUSING CARE THROUGHOUT THE SHIFT. PT HAD SIGNS OF GRANDIOSE AND PARANOID THOUGHTS. SHE REPORTED HER CAREGIVERS ARE POISONING HER WITH CIANIDE. 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 SHE REPORTS SHE IS FRIENDS WITH PUTIN AND THE END OF TIMES ARE COMING. SHE ALSO REPORTED PEOPLE ARE POISONING HER FOOD AND SHE WOULD NOT EAT UNLESS STAFF LEFT THE ROOM. OBSERVATIONS FROM AFAR REVEALED PT ABLE TO FEED HERSELF WITHOUT EPISODES OF CHOKING, COUGHING, OR SPITTING UP. SHE DID REFUSE TO EAT THE RICE AT LUNCH STATING SHE CAN'T SWALLOW IT. PT WAS VERY AGITATED AND ATTEMPTED TO STOP STAFF WHEN REPOSITIONING OR CHANGING. SHE HAD LARGE BM TODAY AND IS INCONTINENT. SHE HAS REDNESS TO BOTTOM WITH 2 OPEN SORES. SHE ALSO HAD NON YEAST REDNESS TO GROIN AND BREAST CREASES. WOUNDS PHOTOGRAPHED AND DOCUMENTED. PT PLACED ON TURN Q2 SCHEDULE. WOUNDS CLEANSED AND BARRIER CREAM APPLIED. SPOKE TO CAREGIVER GABE WHO RELAYED PT HAS BEEN IN STEADY DECLINE SINCE FEBRUARY WITH INCREASED DELUSIONS AND PARANOIA AND HALLUCINATIONS AND BEGAN REFUSING MEDICATIONS AT TIMES INCLUDING HER ANTIBIOTICS AND REFUSING TO LEAVE THE HOUSE BY APRIL. GABE REPORTS SHE HAD NO PRIOR PSYCH DIAGONSIS. PT HAS LEVAQUIN ALLERGY ALONG WITH LEVAQUIN SCHEDULED. PHARMACIST AND MD AWARE.
--- NOTE | 2022-09-16 05:24 | NUR ---
COMMUNITY REPRESENTATIVE SUMMARY: A&O TO SELF, ONLY. REQUESTED CHEERIOS FOR SNACK LAST NIGHT. TOOK MEDS. REQUESTED PRN APAP FOR C/O HEADACHE; CALLED HOSPITALIST TO GET ORDER. RELIEF OBTAINED FROM APAP AND SLEPT T/O NIGHT. SUPRAPUBIC CATH PATENT AND DRAINING TO GRAVITY. TELE SINUS W/ BBB @ 73bpm. NEED SPUTUM CULTURE COLLECTED. WILL REPORT TO ONCOMING RN.
--- NOTE | 2022-09-16 06:51 | NUR ---
HEAD COUNSELOR SUMMARY: ALERT, THOUGH DROWSY. ORIENTED TO SELF, ONLY. HAS SLEPT MOST OF SHIFT AND TRIED TO REFUSE TURNS. THIS MORNING SHE IS VERY EMOTIONAL BECAUSE SHE WANTS SOMEBODY TO RUB HER BACK AND STAFF ARE UNAVAILABLE. VSS. AGREEABLE TO ALL MEDS. WILL REPORT TO ONCOMING RN.
[2022-09-16 07:04] LABS: BASOPHILS ABSOLUTE AUTO 0.03 K/mm3 (0.00-0.23); BASOPHILS PERCENT AUTO 1 % (0-2); EOSINOPHILS ABSOLUTE AUTO 0.33 K/mm3 (0.00-0.68); EOSINOPHILS PERCENT AUTO 5 % (0-6); Hematocrit 31.5 % (33.0-51.0); Hemoglobin 9.8 g/dL (11.5-16.0); IMMATURE GRAN ABSOLUTE AUTO 0.06 K/mm3 (0.00-0.10); IMMATURE GRAN PERCENT AUTO 1 % (0-1); LYMPHOCYTES ABSOLUTE AUTO 2.17 K/mm3 (0.84-5.20); LYMPHOCYTES PERCENT AUTO 33 % (21-46); MONOCYTES ABSOLUTE AUTO 0.72 K/mm3 (0.16-1.47); MONOCYTES PERCENT AUTO 11 % (4-13); Mean Corpuscular HGB 28.6 pg (26.0-34.0); Mean Corpuscular HGB Conc 31.1 g/dL (31.5-36.5); Mean Corpuscular Volume 92 fL (80-100); Mean Platelet Volume 10.5 fL (9.1-12.4); NEUTROPHILS ABSOLUTE AUTO 3.26 K/mm3 (1.96-9.15); NEUTROPHILS PERCENT AUTO 50 % (41-73); Platelet Count 151 K/mm3 (150-400); RDW Coefficient Variation 14.6 % (11.7-14.2); RDW Standard Deviation 49.2 fL (35.1-46.3); Red Blood Cell Count 3.43 M/mm3 (3.80-5.20); White Blood Cell Count 6.57 K/mm3 (4.00-11.30)
[2022-09-16 07:23] LABS: Albumin, Blood 2.5 g/dL (3.4-5.0); Albumin/Globulin Ratio 0.7 (0.8-1.8); Bilirubin, Total 0.2 mg/dL (0.1-1.0); Bun/Creatinine Ratio 38.8 (12.0-20.0); Calcium, Blood 8.6 mg/dL (8.5-10.1); Creatinine, Blood 1.29 mg/dL (0.40-1.00); Globulin, Blood 3.8 g/dL (2.2-4.0); Potassium, Blood 3.9 mmol/L (3.5-5.5); Total Protein, Blood 6.3 g/dL (6.4-8.2)
--- NOTE | 2022-09-16 09:51 | NUR ---
SPOKE WITH DR. VILLAREAL AND THE PHARMACY ABOUT PT'S ALLERGY TO LEVAQUIN. BOTH TOLD ME TO GIVE THE MEDICATION. WILL MONITOR THE PT FOR A POSSIBLE ADVERSE REACTION.
--- NOTE | 2022-09-16 17:03 | NUR ---
SHIFT SUMMARY PT STARTED OFF THE SHIFT SOMEWHAT UNCOOPERATIVE BUT PROGRESSION HAS BEEN MADE THROUGHOUT THE DAY. A MEPALEX WAS APPLIED TO HER COCCYX AND WOUND CLEANING WAS DONE. SHE WAS ALSO REPOSITIONED AND THAT HAS PROVIDED HER PAIN RELIEF. SHE HAS BEEN EXPRESSING GRANDIOSE THOUGHTS AND REPEATS HERSELF OFTEN. REDIRECTION HAS BEEN HELPFUL WELL DISTRACTION. SHE REFUSED TO WORK WITH PT THIS MORNING AND THEY ARE NOT GOING TO CONTINUE CARE AT THIS TIME UNTIL SHE IS MORE COOPERATIVE. SHE IS ON ASPIRATION PRECAUTIONS AND INSTRUCTED TO SIT UP WHEN EATING. SHE ALSO RECEIVED A PARTIAL BED BATH AND BOTTOM SHEET LINEN CHANGE TODAY.
[2022-09-17 05:39] LABS: BASOPHILS ABSOLUTE AUTO 0.03 K/mm3 (0.00-0.23); BASOPHILS PERCENT AUTO 0 % (0-2); EOSINOPHILS ABSOLUTE AUTO 0.35 K/mm3 (0.00-0.68); EOSINOPHILS PERCENT AUTO 5 % (0-6); Hematocrit 29.8 % (33.0-51.0); Hemoglobin 9.7 g/dL (11.5-16.0); IMMATURE GRAN ABSOLUTE AUTO 0.06 K/mm3 (0.00-0.10); IMMATURE GRAN PERCENT AUTO 1 % (0-1); LYMPHOCYTES ABSOLUTE AUTO 1.71 K/mm3 (0.84-5.20); LYMPHOCYTES PERCENT AUTO 24 % (21-46); MONOCYTES ABSOLUTE AUTO 0.76 K/mm3 (0.16-1.47); MONOCYTES PERCENT AUTO 11 % (4-13); Mean Corpuscular HGB 29.9 pg (26.0-34.0); Mean Corpuscular HGB Conc 32.6 g/dL (31.5-36.5); Mean Corpuscular Volume 92 fL (80-100); Mean Platelet Volume 10.5 fL (9.1-12.4); NEUTROPHILS ABSOLUTE AUTO 4.09 K/mm3 (1.96-9.15); NEUTROPHILS PERCENT AUTO 58 % (41-73); Platelet Count 148 K/mm3 (150-400); RDW Coefficient Variation 14.5 % (11.7-14.2); RDW Standard Deviation 48.8 fL (35.1-46.3); Red Blood Cell Count 3.24 M/mm3 (3.80-5.20)
[2022-09-17 06:11] LABS: Albumin, Blood 2.3 g/dL (3.4-5.0); Albumin/Globulin Ratio 0.7 (0.8-1.8); Bilirubin, Total 0.2 mg/dL (0.1-1.0); Bun/Creatinine Ratio 32.2 (12.0-20.0); Calcium, Blood 8.5 mg/dL (8.5-10.1); Creatinine, Blood 1.43 mg/dL (0.40-1.00); Globulin, Blood 3.4 g/dL (2.2-4.0); Potassium, Blood 3.8 mmol/L (3.5-5.5); Total Protein, Blood 5.7 g/dL (6.4-8.2)
--- NOTE | 2022-09-17 06:12 | NUR ---
SUMMARY PT HAS BEEN PLESANT AND COOPERATIVE. PT REMAINS CONFUSED AND FORGETFUL. PT CATH DRAINING TO GRAVITY. PT HAS RESTED WELL THIS SHIFT. PT CURRENTLY SLEEPING IN NO DISTRESS. CALL LIGHT IN REACH AND BED ALARM ON.
[2022-09-17] MEDS ORDERED: VISBIOME 112.51 EACH PO (11:25)
[2022-09-17] MEDS ORDERED: Amoxicillin500 MG PO (11:26)
[2022-09-17] MEDS ORDERED: LEVFLO500 PO (11:26)
--- NOTE | 2022-09-17 18:26 | NUR ---
DISCHARGE NOTE PT WAS DISCHARGED TO HOME WITH HER CARGIVER. SHE WAS TRANSFERRED TO HER CAREGIVERS VEHICLE VIA WHEELCHAIR. DISCHARGE EDUCATION AND INFORMATION WAS PROVIDED. MEDICATIONS WERE FAXED TO THE PHARMACY OF HER CHOICE. IV WAS REMOVED SUCCESSFULLY. INFORMED PT TO FOLLOW-UP WITH HER PCP BY THE INDICATED TIME ON HER PAPERWORK.
== END 2022-09-17 18:23 | disposition home or self-care (01) | DRG 698 ==
LOC: ER 14:18 → MEDS 18:13
PROVIDERS: Family Medicine; Student in an Organized Health Care Education/Training Program; ADMIT Internal Medicine
DX: T83.518A Infection and inflammatory reaction due to other urinary catheter, initial encounter (principal); G93.41 Metabolic encephalopathy; J18.9 Pneumonia, unspecified organism; J96.01 Acute respiratory failure with hypoxia; I50.30 Unspecified diastolic (congestive) heart failure; N39.0 Urinary tract infection, site not specified; J44.0 Chronic obstructive pulmonary disease with (acute) lower respiratory infection; J98.11 Atelectasis; R29.6 Repeated falls; E86.0 Dehydration; G47.33 Obstructive sleep apnea (adult) (pediatric); E11.9 Type 2 diabetes mellitus without complications; N31.9 Neuromuscular dysfunction of bladder, unspecified; I11.0 Hypertensive heart disease with heart failure; B95.2 Enterococcus as the cause of diseases classified elsewhere; B96.89 Other specified bacterial agents as the cause of diseases classified elsewhere; Z86.73 Personal history of transient ischemic attack (TIA), and cerebral infarction without residual deficits; Z91.14 Patient's other noncompliance with medication regimen; Z88.8 Allergy status to other drugs, medicaments and biological substances; Z79.899 Other long term (current) drug therapy; Z79.4 Long term (current) use of insulin; Z79.82 Long term (current) use of aspirin; Z98.1 Arthrodesis status; Z90.49 Acquired absence of other specified parts of digestive tract; Z98.890 Other specified postprocedural states; Z90.710 Acquired absence of both cervix and uterus; Z87.891 Personal history of nicotine dependence; Z86.19 Personal history of other infectious and parasitic diseases; Z88.0 Allergy status to penicillin; Z88.1 Allergy status to other antibiotic agents; Y84.6 Urinary catheterization as the cause of abnormal reaction of the patient, or of later complication, without mention of misadventure at the time of the procedure
CPT/HCPCS: 36415; 70450; 71045; 80053; 81001; 82947; 83605; 85025; 87077; 87086; 87186; 92526; 92610; 93005; 93010; 96365; 96366; 96375; 97110; 97161; 97166; 97530; 97535; 99285-25; A9270; J0295; J0456; J0696; J1650; J1815; J1956; J7030; J7050

== ENCOUNTER → 2022-11-02 | Outpatient (CLI) | payer MEDICARE, OTHER ==
[~2022-11-02] MED LIST changes: +Amoxicillin500 MG PO; +Keflex250 MG PO; +RISP1 PO; +VISBIOME 112.51 EACH PO
[2022-11-02 17:04] LABS: Alanine Aminotransfer (ALT/SGP 17 U/L (12-78); Albumin, Blood 3.3 g/dL (3.4-5.0); Albumin/Globulin Ratio 0.8 (0.8-1.8); Alk Phos 80 U/L (50-136); Anion Gap 5 mmol/L (6-16); Aspartate Aminotrans (AST/SGOT 17 U/L (12-37); Bilirubin, Total 0.3 mg/dL (0.1-1.0); Blood Urea Nitrogen 49 mg/dL (8-24); Bun/Creatinine Ratio 39.5 (12.0-20.0); CO2, Blood 31 mmol/L (21-32); Calcium, Blood 9.3 mg/dL (8.5-10.1); Chloride, Blood 105 mmol/L (98-108); Creatinine, Blood 1.24 mg/dL (0.40-1.00); Ferritin, Serum 396 ng/mL (8-252); Globulin, Blood 4.1 g/dL (2.2-4.0); Glomerular Filtration Rate 45 (60-); Glucose, Blood 105 mg/dL (70-99); Iron Serum 56 ug/dL (50-170); Percent Saturation 28.1 % (15.0-50.0); Phosphorus, Blood 2.9 mg/dL (2.5-4.9); Potassium, Blood 4.3 mmol/L (3.5-5.5); Sodium, Blood 141 mmol/L (136-145); Total Iron Binding Capacity 199 ug/dL (250-450); Total Protein, Blood 7.4 g/dL (6.4-8.2)
== END | disposition home or self-care (01) ==
LOC: LAB SHORT 15:25 → LAB 15:25
PROVIDERS: Student in an Organized Health Care Education/Training Program
DX: I13.0 Hypertensive heart and chronic kidney disease with heart failure and stage 1 through stage 4 chronic kidney disease, or unspecified chronic kidney disease (principal); E11.22 Type 2 diabetes mellitus with diabetic chronic kidney disease; I50.9 Heart failure, unspecified; N18.9 Chronic kidney disease, unspecified; N31.9 Neuromuscular dysfunction of bladder, unspecified
CPT/HCPCS: 80053; 82728; 83540; 83550; 83970; 84100

== ENCOUNTER → 2022-11-05 | Outpatient (CLI) | payer MEDICARE, OTHER ==
[2022-11-05 17:27] LABS: Source, Urine Voided
[2022-11-05 19:04] LABS: Appearance, Urine Hazy (Clear); Bilirubin, Urine Neg (Neg); Blood, Urine 3+ (Neg); Glucose Qualitative, Urine Neg (Neg); Ketones, Urine Neg (Neg); Leukocyte Esterase, Urine 3+ (Neg); Nitrite, Urine Pos (Neg); Protein, Urine 3+ (Neg); Urobilinogen, Urine NORM (Normal)
[2022-11-05 19:26] LABS: Color, Urine Pale Yellow (P-Yellow)
[2022-11-05 19:27] LABS: Bacteria Many /hpf; Renal Epithelial Rare /hpf (0-Rare); Squamous Epithelial Cells Rare /hpf (Few); White Blood Cells, Urine TNTC /hpf (0-5)
== END ==
LOC: LAB SHORT 16:50
PROVIDERS: Student in an Organized Health Care Education/Training Program
DX: N39.0 Urinary tract infection, site not specified (principal)
CPT/HCPCS: 81001; 87077; 87086; 87186

== ENCOUNTER → 2022-12-01 | Outpatient (CLI) | payer MEDICARE, OTHER ==
[2022-12-01 13:30] LABS: BASOPHILS ABSOLUTE AUTO 0.04 K/mm3 (0.00-0.23); BASOPHILS PERCENT AUTO 0 % (0-2); EOSINOPHILS ABSOLUTE AUTO 0.04 K/mm3 (0.00-0.68); EOSINOPHILS PERCENT AUTO 0 % (0-6); Hematocrit 39.7 % (33.0-51.0); Hemoglobin 12.5 g/dL (11.5-16.0); IMMATURE GRAN ABSOLUTE AUTO 0.03 K/mm3 (0.00-0.10); IMMATURE GRAN PERCENT AUTO 0 % (0-1); LYMPHOCYTES PERCENT AUTO 15 % (21-46); MONOCYTES ABSOLUTE AUTO 0.45 K/mm3 (0.16-1.47); MONOCYTES PERCENT AUTO 4 % (4-13); Mean Corpuscular HGB 28.7 pg (26.0-34.0); Mean Corpuscular HGB Conc 31.5 g/dL (31.5-36.5); Mean Corpuscular Volume 91 fL (80-100); Mean Platelet Volume 10.1 fL (9.1-12.4); NEUTROPHILS ABSOLUTE AUTO 9.18 K/mm3 (1.96-9.15); NEUTROPHILS PERCENT AUTO 80 % (41-73); Platelet Count 175 K/mm3 (150-400); RDW Coefficient Variation 13.2 % (11.7-14.2); RDW Standard Deviation 43.8 fL (35.1-46.3); Red Blood Cell Count 4.36 M/mm3 (3.80-5.20); White Blood Cell Count 11.44 K/mm3 (4.00-11.30)
== END | disposition home or self-care (01) ==
LOC: LAB SHORT 12:10 → LAB HH 12:10
PROVIDERS: Student in an Organized Health Care Education/Training Program
DX: N18.32 Chronic kidney disease, stage 3b (principal); D50.9 Iron deficiency anemia, unspecified
CPT/HCPCS: 85025

== ENCOUNTER → 2022-12-30 | Outpatient (CLI) | payer MEDICARE, OTHER ==
[2022-12-30 16:22] LABS: Source, Urine Voided
[2022-12-30 17:44] LABS: Appearance, Urine Clear (Clear); Bilirubin, Urine Neg (Neg); Blood, Urine Neg (Neg); Glucose Qualitative, Urine Neg (Neg); Ketones, Urine Neg (Neg); Leukocyte Esterase, Urine 2+ (Neg); Nitrite, Urine Pos (Neg); Protein, Urine 2+ (Neg); Urobilinogen, Urine NORM (Normal)
[2022-12-30 18:00] LABS: Color, Urine Pale Yellow (P-Yellow)
[2022-12-30 18:01] LABS: Red Blood Cells, Urine 0-2 /hpf (0-2)
[2022-12-30 18:02] LABS: Bacteria Mod /hpf; Squamous Epithelial Cells Rare /hpf (Few)
== END | disposition home or self-care (01) ==
LOC: LAB 15:15 → LAB SHORT 15:15
PROVIDERS: Student in an Organized Health Care Education/Training Program
DX: R29.898 Other symptoms and signs involving the musculoskeletal system (principal); R25.9 Unspecified abnormal involuntary movements
CPT/HCPCS: 81001; 87077; 87086; 87186

== ENCOUNTER → 2023-01-07 | Outpatient (CLI) | payer MEDICARE, OTHER ==
[2023-01-07 15:44] LABS: BASOPHILS ABSOLUTE AUTO 0.05 K/mm3 (0.00-0.23); BASOPHILS PERCENT AUTO 1 % (0-2); EOSINOPHILS ABSOLUTE AUTO 0.26 K/mm3 (0.00-0.68); EOSINOPHILS PERCENT AUTO 3 % (0-6); Hematocrit 33.6 % (33.0-51.0); Hemoglobin 11.1 g/dL (11.5-16.0); IMMATURE GRAN ABSOLUTE AUTO 0.02 K/mm3 (0.00-0.10); IMMATURE GRAN PERCENT AUTO 0 % (0-1); LYMPHOCYTES ABSOLUTE AUTO 2.08 K/mm3 (0.84-5.20); LYMPHOCYTES PERCENT AUTO 27 % (21-46); MONOCYTES ABSOLUTE AUTO 0.53 K/mm3 (0.16-1.47); MONOCYTES PERCENT AUTO 7 % (4-13); Mean Corpuscular HGB 29.6 pg (26.0-34.0); Mean Corpuscular Volume 90 fL (80-100); Mean Platelet Volume 10.5 fL (9.1-12.4); NEUTROPHILS ABSOLUTE AUTO 4.71 K/mm3 (1.96-9.15); NEUTROPHILS PERCENT AUTO 62 % (41-73); Platelet Count 158 K/mm3 (150-400); RDW Coefficient Variation 14.3 % (11.7-14.2); RDW Standard Deviation 46.5 fL (35.1-46.3); Red Blood Cell Count 3.75 M/mm3 (3.80-5.20); White Blood Cell Count 7.65 K/mm3 (4.00-11.30)
[2023-01-08 04:34] LABS: Albumin, Blood 3.3 g/dL (3.4-5.0); Albumin/Globulin Ratio 0.9 (0.8-1.8); Bilirubin, Total 0.2 mg/dL (0.1-1.0); Bun/Creatinine Ratio 35.2 (12.0-20.0); Calcium, Blood 10.1 mg/dL (8.5-10.1); Creatinine, Blood 1.79 mg/dL (0.40-1.00); Globulin, Blood 3.8 g/dL (2.2-4.0); Potassium, Blood 4.5 mmol/L (3.5-5.5); Total Protein, Blood 7.1 g/dL (6.4-8.2)
== END | disposition home or self-care (01) ==
LOC: LAB SHORT 12:50
PROVIDERS: Student in an Organized Health Care Education/Training Program
DX: I13.0 Hypertensive heart and chronic kidney disease with heart failure and stage 1 through stage 4 chronic kidney disease, or unspecified chronic kidney disease (principal); E11.22 Type 2 diabetes mellitus with diabetic chronic kidney disease; N18.32 Chronic kidney disease, stage 3b; I50.9 Heart failure, unspecified; D63.1 Anemia in chronic kidney disease; D50.9 Iron deficiency anemia, unspecified
CPT/HCPCS: 36415; 80053; 85025

== ENCOUNTER → 2023-01-22 | Outpatient (CLI) | payer MEDICARE, OTHER ==
[2023-01-22 13:42] LABS: BASOPHILS ABSOLUTE AUTO 0.03 K/mm3 (0.00-0.23); BASOPHILS PERCENT AUTO 0 % (0-2); EOSINOPHILS ABSOLUTE AUTO 0.29 K/mm3 (0.00-0.68); EOSINOPHILS PERCENT AUTO 4 % (0-6); Hematocrit 33.1 % (33.0-51.0); Hemoglobin 10.5 g/dL (11.5-16.0); IMMATURE GRAN ABSOLUTE AUTO 0.02 K/mm3 (0.00-0.10); IMMATURE GRAN PERCENT AUTO 0 % (0-1); LYMPHOCYTES ABSOLUTE AUTO 2.13 K/mm3 (0.84-5.20); LYMPHOCYTES PERCENT AUTO 31 % (21-46); MONOCYTES PERCENT AUTO 7 % (4-13); Mean Corpuscular HGB 28.9 pg (26.0-34.0); Mean Corpuscular HGB Conc 31.7 g/dL (31.5-36.5); Mean Corpuscular Volume 91 fL (80-100); Mean Platelet Volume 10.4 fL (9.1-12.4); NEUTROPHILS ABSOLUTE AUTO 3.85 K/mm3 (1.96-9.15); NEUTROPHILS PERCENT AUTO 57 % (41-73); Platelet Count 139 K/mm3 (150-400); RDW Coefficient Variation 14.2 % (11.7-14.2); RDW Standard Deviation 47.7 fL (35.1-46.3); Red Blood Cell Count 3.63 M/mm3 (3.80-5.20); White Blood Cell Count 6.82 K/mm3 (4.00-11.30)
[2023-01-22 14:40] LABS: Albumin, Blood 3.1 g/dL (3.4-5.0); Albumin/Globulin Ratio 0.8 (0.8-1.8); Bilirubin, Total 0.2 mg/dL (0.1-1.0); Bun/Creatinine Ratio 45.8 (12.0-20.0); Creatinine, Blood 1.18 mg/dL (0.40-1.00); Globulin, Blood 3.7 g/dL (2.2-4.0); Potassium, Blood 3.8 mmol/L (3.5-5.5); Total Protein, Blood 6.8 g/dL (6.4-8.2)
== END | disposition home or self-care (01) ==
LOC: LAB HH 12:39
PROVIDERS: Student in an Organized Health Care Education/Training Program
DX: I13.0 Hypertensive heart and chronic kidney disease with heart failure and stage 1 through stage 4 chronic kidney disease, or unspecified chronic kidney disease (principal); I50.30 Unspecified diastolic (congestive) heart failure; N18.32 Chronic kidney disease, stage 3b; E11.22 Type 2 diabetes mellitus with diabetic chronic kidney disease; J44.9 Chronic obstructive pulmonary disease, unspecified; D50.9 Iron deficiency anemia, unspecified; D63.1 Anemia in chronic kidney disease
CPT/HCPCS: 80053; 85025

== ENCOUNTER 2023-04-03 10:44 | Emergency (ER) | payer MEDICARE, OTHER ==
[~2023-04-03] VITALS: Ht 162.6 cm; Wt 77.1 kg
[~2023-04-03 10:44] MED LIST changes: +ATORVASTATIN CA20 MG PO; +AZIT250 PO; +Inderal60 MG PO; +RISPERIDONE110 PO
[2023-04-03 11:31] LABS: BASOPHILS ABSOLUTE AUTO 0.03 K/mm3 (0.00-0.23); BASOPHILS PERCENT AUTO 0 % (0-2); EOSINOPHILS PERCENT AUTO 2 % (0-6); Hematocrit 30.7 % (33.0-51.0); Hemoglobin 9.9 g/dL (11.5-16.0); IMMATURE GRAN ABSOLUTE AUTO 0.02 K/mm3 (0.00-0.10); IMMATURE GRAN PERCENT AUTO 0 % (0-1); LYMPHOCYTES ABSOLUTE AUTO 2.22 K/mm3 (0.84-5.20); LYMPHOCYTES PERCENT AUTO 26 % (21-46); MONOCYTES ABSOLUTE AUTO 0.86 K/mm3 (0.16-1.47); MONOCYTES PERCENT AUTO 10 % (4-13); Mean Corpuscular HGB 29.7 pg (26.0-34.0); Mean Corpuscular HGB Conc 32.2 g/dL (31.5-36.5); Mean Corpuscular Volume 92 fL (80-100); Mean Platelet Volume 9.9 fL (9.1-12.4); NEUTROPHILS ABSOLUTE AUTO 5.38 K/mm3 (1.96-9.15); NEUTROPHILS PERCENT AUTO 62 % (41-73); Platelet Count 142 K/mm3 (150-400); RDW Coefficient Variation 12.8 % (11.7-14.2); RDW Standard Deviation 43.8 fL (35.1-46.3); Red Blood Cell Count 3.33 M/mm3 (3.80-5.20); White Blood Cell Count 8.71 K/mm3 (4.00-11.30)
[2023-04-03 11:50] LABS: Albumin, Blood 2.8 g/dL (3.4-5.0); Albumin/Globulin Ratio 0.8 (0.8-1.8); Bilirubin, Total 0.3 mg/dL (0.1-1.0); Bun/Creatinine Ratio 49.4 (12.0-20.0); Calcium, Blood 10.2 mg/dL (8.5-10.1); Creatinine, Blood 0.93 mg/dL (0.40-1.00); Globulin, Blood 3.5 g/dL (2.2-4.0); Potassium, Blood 3.9 mmol/L (3.5-5.5); Total Protein, Blood 6.3 g/dL (6.4-8.2)
[2023-04-03 15:00] VITALS: BP 178/66
== END 2023-04-03 15:18 | disposition home or self-care (01) ==
LOC: ER 10:44
PROVIDERS: Student in an Organized Health Care Education/Training Program
DX: E11.649 Type 2 diabetes mellitus with hypoglycemia without coma (principal); Z88.1 Allergy status to other antibiotic agents; Z88.8 Allergy status to other drugs, medicaments and biological substances; Z79.4 Long term (current) use of insulin; Z87.891 Personal history of nicotine dependence
CPT/HCPCS: 80053; 85025; 93005; 93010

== ENCOUNTER → 2023-08-18 | Outpatient (CLI) | payer MEDICARE, OTHER ==
[2023-08-18 13:24] LABS: Source, Urine Voided
[2023-08-18 14:06] LABS: Appearance, Urine Clear (Clear); Bilirubin, Urine Neg (Neg); Blood, Urine Neg (Neg); Color, Urine Yellow (P-Yellow); Glucose Qualitative, Urine Neg (Neg); Ketones, Urine Neg (Neg); Leukocyte Esterase, Urine 3+ (Neg); Nitrite, Urine Pos (Neg); Protein, Urine 1+ (Neg); Urobilinogen, Urine NORM (Normal); pH, Urine 6.5 (5.0-8.0)
[2023-08-18 15:59] LABS: Bacteria Many /hpf; Red Blood Cells, Urine 0-2 /hpf (0-2); Squamous Epithelial Cells Few /hpf (Few); White Blood Cells, Urine 25-50 /hpf (0-5)
== END ==
LOC: LAB 11:10 → LAB SHORT 11:10
PROVIDERS: Student in an Organized Health Care Education/Training Program
DX: Z93.59 Other cystostomy status (principal)
CPT/HCPCS: 81001; 87077; 87086; 87186

== ENCOUNTER → 2023-09-28 | Outpatient (CLI) | payer MEDICARE, OTHER ==
[2023-09-28 14:00] LABS: Source, Urine Urostomy Bag
[2023-09-28 15:46] LABS: Appearance, Urine Hazy (Clear); Bilirubin, Urine Neg (Neg); Blood, Urine 1+ (Neg); Color, Urine Yellow (P-Yellow); Glucose Qualitative, Urine Neg (Neg); Ketones, Urine Neg (Neg); Leukocyte Esterase, Urine 3+ (Neg); Nitrite, Urine Pos (Neg); Protein, Urine 3+ (Neg); Urobilinogen, Urine NORM (Normal)
[2023-09-28 15:55] LABS: Bacteria Many /hpf; Squamous Epithelial Cells Not Seen /hpf (Few); Triple Phosphate Crystals Mod /hpf
== END ==
LOC: LAB 13:56 → LAB SHORT 13:56
PROVIDERS: Student in an Organized Health Care Education/Training Program
DX: E11.618 Type 2 diabetes mellitus with other diabetic arthropathy (principal); E11.22 Type 2 diabetes mellitus with diabetic chronic kidney disease; N18.32 Chronic kidney disease, stage 3b; Z93.59 Other cystostomy status
CPT/HCPCS: 81001; 87086

== ENCOUNTER → 2023-10-07 | Outpatient (CLI) | payer MEDICARE, OTHER ==
[2023-10-07 14:29] LABS: BASOPHILS ABSOLUTE AUTO 0.02 K/mm3 (0.00-0.23); BASOPHILS PERCENT AUTO 0 % (0-2); EOSINOPHILS ABSOLUTE AUTO 0.17 K/mm3 (0.00-0.68); EOSINOPHILS PERCENT AUTO 3 % (0-6); Hematocrit 35.9 % (33.0-51.0); Hemoglobin 11.6 g/dL (11.5-16.0); IMMATURE GRAN ABSOLUTE AUTO 0.01 K/mm3 (0.00-0.10); IMMATURE GRAN PERCENT AUTO 0 % (0-1); LYMPHOCYTES ABSOLUTE AUTO 2.01 K/mm3 (0.84-5.20); LYMPHOCYTES PERCENT AUTO 32 % (21-46); MONOCYTES ABSOLUTE AUTO 0.51 K/mm3 (0.16-1.47); MONOCYTES PERCENT AUTO 8 % (4-13); Mean Corpuscular HGB 29.7 pg (26.0-34.0); Mean Corpuscular HGB Conc 32.3 g/dL (31.5-36.5); Mean Corpuscular Volume 92 fL (80-100); Mean Platelet Volume 10.1 fL (9.1-12.4); NEUTROPHILS PERCENT AUTO 56 % (41-73); Platelet Count 128 K/mm3 (150-400); RDW Coefficient Variation 13.4 % (11.7-14.2); RDW Standard Deviation 45.3 fL (35.1-46.3); Red Blood Cell Count 3.91 M/mm3 (3.80-5.20); White Blood Cell Count 6.22 K/mm3 (4.00-11.30)
[2023-10-07 17:03] LABS: Albumin, Blood 3.5 g/dL (3.4-5.0); Bilirubin, Total 0.2 mg/dL (0.1-1.0); Bun/Creatinine Ratio 55.6 (12.0-20.0); Calcium, Blood 10.3 mg/dL (8.5-10.1); Creatinine, Blood 0.92 mg/dL (0.40-1.00); Globulin, Blood 3.5 g/dL (2.2-4.0); Potassium, Blood 3.2 mmol/L (3.5-5.5)
[2023-10-10 11:22] LABS: HEMOGLOBIN A1C 6.2 % (4.8-5.6)
== END ==
LOC: LAB 11:35 → LAB SHORT 11:35
PROVIDERS: Student in an Organized Health Care Education/Training Program
DX: E11.618 Type 2 diabetes mellitus with other diabetic arthropathy (principal); N18.32 Chronic kidney disease, stage 3b; Z93.59 Other cystostomy status
CPT/HCPCS: 80053; 83036; 85025

== ENCOUNTER → 2023-11-15 | Outpatient (CLI) | payer MEDICARE, OTHER ==
[2023-11-15 11:05] LABS: Source, Urine Voided
[2023-11-15 12:43] LABS: Appearance, Urine Hazy (Clear); Bilirubin, Urine Neg (Neg); Blood, Urine 2+ (Neg); Color, Urine Yellow (P-Yellow); Glucose Qualitative, Urine Neg (Neg); Ketones, Urine Neg (Neg); Leukocyte Esterase, Urine 3+ (Neg); Nitrite, Urine Pos (Neg); Protein, Urine 2+ (Neg); Urobilinogen, Urine NORM (Normal)
[2023-11-15 13:04] LABS: Bacteria Many /hpf; Squamous Epithelial Cells Few /hpf (Few); White Blood Cells, Urine 50-100 /hpf (0-5)
== END | disposition home or self-care (01) ==
LOC: LAB 11:02 → LAB SHORT 11:02
PROVIDERS: Student in an Organized Health Care Education/Training Program
DX: N39.0 Urinary tract infection, site not specified (principal)
CPT/HCPCS: 81001; 87086

== ENCOUNTER 2023-11-23 16:30 | Inpatient (IN) | payer MEDICARE, OTHER ==
[~2023-11-23] VITALS: Ht 170.2 cm; Wt 70.0 kg
[2023-11-23 18:35] LABS: Calcium, Ionized (POC) 1.35 mmol/L (1.10-1.46); Chloride (POC) 102 mmol/L (98-108); Glucose (ISTAT POC) 188 mg/dL (70-99); Hemoglobin (POC) 11.2 g/dL (12.0-16.0); Potassium (POC) 5.1 mmol/L (3.5-5.5); Sodium (POC) 137 mmol/L (135-148); Total CO2 (POC) 28 mmol/L (21-32)
[2023-11-23 19:45] LABS: BASOPHILS ABSOLUTE AUTO 0.02 K/mm3 (0.00-0.23); BASOPHILS PERCENT AUTO 0 % (0-2); EOSINOPHILS ABSOLUTE AUTO 0.03 K/mm3 (0.00-0.68); EOSINOPHILS PERCENT AUTO 0 % (0-6); Hematocrit 37.2 % (33.0-51.0); Hemoglobin 12.2 g/dL (11.5-16.0); IMMATURE GRAN ABSOLUTE AUTO 0.06 K/mm3 (0.00-0.10); IMMATURE GRAN PERCENT AUTO 1 % (0-1); LYMPHOCYTES ABSOLUTE AUTO 1.84 K/mm3 (0.84-5.20); LYMPHOCYTES PERCENT AUTO 20 % (21-46); MONOCYTES ABSOLUTE AUTO 0.41 K/mm3 (0.16-1.47); MONOCYTES PERCENT AUTO 5 % (4-13); Mean Corpuscular HGB 29.6 pg (26.0-34.0); Mean Corpuscular HGB Conc 32.8 g/dL (31.5-36.5); Mean Corpuscular Volume 90 fL (80-100); Mean Platelet Volume 9.6 fL (9.1-12.4); NEUTROPHILS ABSOLUTE AUTO 6.82 K/mm3 (1.96-9.15); NEUTROPHILS PERCENT AUTO 74 % (41-73); Platelet Count 144 K/mm3 (150-400); RDW Coefficient Variation 12.9 % (11.7-14.2); RDW Standard Deviation 42.2 fL (35.1-46.3); Red Blood Cell Count 4.12 M/mm3 (3.80-5.20); White Blood Cell Count 9.18 K/mm3 (4.00-11.30)
[2023-11-23 19:45] LABS: Source, Urine Foley catheter
[2023-11-23 19:57] LABS: Appearance, Urine Cloudy (Clear); Bilirubin, Urine Neg (Neg); Blood, Urine 2+ (Neg); Color, Urine Yellow (P-Yellow); Glucose Qualitative, Urine Neg (Neg); Ketones, Urine Neg (Neg); Leukocyte Esterase, Urine 3+ (Neg); Nitrite, Urine Pos (Neg); Protein, Urine 3+ (Neg); Specific Gravity, Urine 1.015 (1.003-1.022); Urobilinogen, Urine NORM (Normal)
[2023-11-23 20:05] LABS: White Blood Cells, Urine 25-50 /hpf (0-5)
[2023-11-23 20:06] LABS: Bacteria Many /hpf; Squamous Epithelial Cells Not Seen /hpf (Few)
[2023-11-23 20:07] LABS: U Amphetamine Screen Not Detected; U Barbituate Screen Not Detected; U Benzodiazapine Screen Not Detected; U Buprenorphine Screen Not Detected; U Cannabinoids Screen Not Detected; U Cocaine Screen Not Detected; U Methadone Screen Not Detected; U Methamphetamine Screen Not Detected; U Opiates Screen Not Detected; U Oxycodone Screen Not Detected; U Phencyclidine Screen Not Detected
[2023-11-23 20:16] LABS: Albumin, Blood 3.3 g/dL (3.4-5.0); Albumin/Globulin Ratio 0.8 (0.8-1.8); Bilirubin, Total 0.2 mg/dL (0.1-1.0); Bun/Creatinine Ratio 56.6 (12.0-20.0); Calcium, Blood 10.8 mg/dL (8.5-10.1); Creatinine, Blood 0.87 mg/dL (0.40-1.00); Globulin, Blood 4.1 g/dL (2.2-4.0); Magnesium, Blood 2.1 mg/dL (1.6-2.4); Potassium, Blood 4.2 mmol/L (3.5-5.5); Total Protein, Blood 7.4 g/dL (6.4-8.2)
[2023-11-23 23:00] VITALS: BP 145/61
[2023-11-23 23:15] VITALS: BP 146/52
[2023-11-23 23:30] VITALS: BP 147/77
[2023-11-23 23:45] VITALS: BP 141/56
[2023-11-24] VITALS (64 sets, daily range): BP systolic 109–188; BP diastolic 37–107
[2023-11-24 01:48] LABS: Source, Urine Foley catheter
[2023-11-24 01:57] LABS: Bilirubin, Urine Neg (Neg); Blood, Urine 4+ (Neg); Glucose Qualitative, Urine 2+ (Neg); Ketones, Urine Neg (Neg); Leukocyte Esterase, Urine 3+ (Neg); Nitrite, Urine Pos (Neg); Protein, Urine 3+ (Neg); Specific Gravity, Urine 1.015 (1.003-1.022); Urobilinogen, Urine NORM (Normal)
[2023-11-24 02:25] LABS: Appearance, Urine Hazy (Clear); Color, Urine Pale Yellow (P-Yellow)
[2023-11-24 02:28] LABS: Bacteria Many /hpf; Squamous Epithelial Cells Few /hpf (Few); White Blood Cells, Urine 50-100 /hpf (0-5)
--- NOTE | 2023-11-24 03:07 | NUR ---
ASSUMED CARE/PT UPDATE PT ARRIVED TO ICU FROM ED AT 2306. PT A/O X3, ABLE TO AWAKEN EASILY TO VERBAL STIMULI AND ANSWER QUESTIONS. CAREGIVER AT BEDSIDE CONFIRMS PT'S PREVIOUS DX OF DEMENTIA, STATES THAT MEMORY IS OVERALL INTACT BUT PT WILL OCCASIONALLY BECOME PARANOID. CAREGIVER STATES PT WAS BROUGHT TO ED D/T WHAT APPEARED TO HER SEIZURE ACTIVITY, PT WOULD GASP AND BODY WOULD SHAKE FOR SMALL AMOUNT OF TIME PER CAREGIVER'S REPORT. AT TIME OF ARRIVAL PT WAS NOT EXHIBITING THIS ACTIVITY. PER ED RN'S REPORT PT HAVING PAUSES REFLECTED ON CREDIT AUTHORIZER. PT CONNECTED TO ZOLL UPON ARRIVAL TO UNIT, SET TO MONITOR. PT HAVING OCCASIONAL PAUSES, LASTING 2-4 SECONDS WITH PT'S HR RETURNING TO 70s ONCE PAUSE WAS OVER. SBP 140s-150s. PT BEGAN TO HAVE PAUSES LASTING LONGER THAN [address] JONES NOTIFIED AND REQUESTED TO BEDSIDE BY THIS RN. HR CONTINUED MAINTAINING 70s AND SBP 140s AFTER PAUSE. AT 0040 PT WENT INTO ASYSTOLE FOR APPROX. 22 SECONDS. PT UNRESPONSIVE, CPR STARTED. PT BECAME RESPONSIVE AFTER APPROX. 20 SECONDS OF CPR. EXTERNAL PACING STARTED, CURRENT SETTINGS RATE 60 BPM WITH 10 mA AND CAPTURE. PT MEDICATED ONCE WITH VERSED PER EMAR FOR DISCOMFORT, PT NOT COMPLAINING OF DISCOMFORT AT THIS TIME. AT THIS TIME HR 60, SBP 160s. PER CAREGIVER PT BEDBOUND AT BASELINE AND REQUIRES TOTAL CARE. SUPRAPUBIC CATHETER PRESENT AND CHANGED UPON ARRIVAL TO UNIT. PT ON RA UPON ARRIVAL TO ICU WITH O2 SATS > 95% BUT AT 0305 HAD EPISODE OF DESATTING TO 66% WITH GOOD PLETH AND AWAKENING PT TO TAKE DEEP BREATHS. 6 L N/C APPLIED AND O2 SATS > 95% AT THIS TIME.
[2023-11-24 03:54] LABS: BASOPHILS ABSOLUTE AUTO 0.02 K/mm3 (0.00-0.23); BASOPHILS PERCENT AUTO 0 % (0-2); EOSINOPHILS ABSOLUTE AUTO 0.04 K/mm3 (0.00-0.68); EOSINOPHILS PERCENT AUTO 1 % (0-6); Hematocrit 34.8 % (33.0-51.0); Hemoglobin 11.4 g/dL (11.5-16.0); IMMATURE GRAN ABSOLUTE AUTO 0.07 K/mm3 (0.00-0.10); IMMATURE GRAN PERCENT AUTO 1 % (0-1); LYMPHOCYTES PERCENT AUTO 22 % (21-46); MONOCYTES ABSOLUTE AUTO 0.52 K/mm3 (0.16-1.47); MONOCYTES PERCENT AUTO 6 % (4-13); Mean Corpuscular HGB 29.5 pg (26.0-34.0); Mean Corpuscular HGB Conc 32.8 g/dL (31.5-36.5); Mean Corpuscular Volume 90 fL (80-100); NEUTROPHILS ABSOLUTE AUTO 6.11 K/mm3 (1.96-9.15); NEUTROPHILS PERCENT AUTO 71 % (41-73); Platelet Count 142 K/mm3 (150-400); RDW Standard Deviation 42.8 fL (35.1-46.3); Red Blood Cell Count 3.87 M/mm3 (3.80-5.20); White Blood Cell Count 8.66 K/mm3 (4.00-11.30)
[2023-11-24 04:18] LABS: Albumin, Blood 3.1 g/dL (3.4-5.0); Albumin/Globulin Ratio 0.8 (0.8-1.8); Bilirubin, Total 0.2 mg/dL (0.1-1.0); Bun/Creatinine Ratio 53.2 (12.0-20.0); Calcium, Blood 10.4 mg/dL (8.5-10.1); Creatinine, Blood 0.79 mg/dL (0.40-1.00); Potassium, Blood 4.1 mmol/L (3.5-5.5); Total Protein, Blood 7.1 g/dL (6.4-8.2)
--- NOTE | 2023-11-24 05:26 | NUR ---
SHIFT SUMMARY PT REMAINS A/O X2-3, PT SLEEPING BUT EASILY AROUSABLE TO VERBAL/TACTILE STIMULI. PT ON 6 L N/C AT THIS TIME D/T INSTANCE OF DESATTING TO 66%, SEE PREVIOUS NURSE NOTE. O2 SATS > 95% AT THIS TIME. CARDIAC MONITORING REFLECTS PACED RHYTHM. HR 60. PT CONTINUES WITH TRANSCUTANEOUS PACING, SET RATE OF 60 BPM, mA 10 WITH CAPTURE. SBP 150s AT THIS TIME. SEE PREVIOUS NURSE NOTE REGARDING INITIATING PACING. PT MEDICATED ONCE FOR DISCOMFORT PER EMAR, AT THIS TIME PT NOT COMPLAING OF DISCOMFORT AND DOES NOT APPEAR IN PAIN. SUPRAPUBIC CATHETER PATENT AND DRAINING TO GRAVITY. PT'S BOWEL TONES HYPERACTIVE, CAREGIVER STATED LAST BM WAS 11/22/23. PIVs SL. SEE PICTURES IN CHART FOR PT'S WOUND TO RIGHT COCCYX.
--- NOTE | 2023-11-24 08:50 | NUR ---
AM NOTE -late entry Pt respond to verbal, oriented to self, states she is at home and does note respond when asked date/time. Pt denies pain, chest pain/pressure, sob and nausea. Transcutasneous pacing 10ma, back up rate 60bpm; 100% paced; bp elevated. At shift change 4:1, no instrinsic beats noted; during assessment pt appears sinus with a 1st degree, loud murmur noted. Spo2 at 100% on 6l o2 via nc, breathing even, unlabored, ls dim; titrated down to 2l o2 via nc. Abd soft, nontender, hypoactive bt noted. Wound to coccyx noted, ble discoloration noted, bruising scattered. Limited range of motion noted t/o. Other vss. Will continue to monitor.
--- NOTE | 2023-11-24 09:55 | NUR ---
NAME DISCREPENCY ANTONIO & GOVIND PER PATIENT'S BROTHER-PATIENT'S MAIDEN NAME IS ANTONIO, SHE WAS GOVIND BUT CHANGED HER NAME BACK TO ANTONIO WHEN HER . MADE MULTIPLE CALLS TO REPORTED AND DOCUMENTED GUARDIAN GLORIA LAW. CALLED PATIENT'S DAUGHTER LISTED A COGUARDIAN, WHO REPORTS SHE IS NO LONGER A CO-GUARDIAN AND IT IS GLORIA LAW. MULTIPLE ATTEMPTS TO BOTH CALL AND TEXT GLORIA LAW MADE BY MYSELF, PRIMARY RN AND CARE COORDIANTOR JOVANNY. ETHICS CONSULTED WHO ALSO SPOKE WITH BEATRIZ, REVIEWED POLST AND DETERMINED THAT THIS WAS GOING AGAINST CURRENT WISHES.
--- NOTE | 2023-11-24 10:07 | NUR ---
Ethics consult order received and processed. Medical history, prognostic indicators, social matrix, and advance care planning documents reviewed with the provider. The principal has significant underlying cardiovascular disease and requires an immediate emergent pacemaker procedure for stabilization. A good mavis effort was performed to engage the guardian pwertaining to goals of care, but unfortunately the fidcuciary was unreachable. The POLST signed by the principal stipulates a non-aggressive approach to treatement in the event of decompensation e.g. no resuscitation, and comfort measures only. The clear wishes of the patient were discussed with the daughter who agreed that to honor and align with her moms preferences, life sustaining efforts should be forgone. Thank you for this consult. Rashad Gutierrez, PhD, TENISHA
--- NOTE | 2023-11-24 10:30 | NUR ---
Attempted to call Delvin Quiros at ; voicemail was full and unable to leave a message. Dr Sprague at bedside, also attempted to call Delvin and also could not leave message. Dr Sprague called brother Adarsh, states he would give consent if he could. Ethic consults, Rashad torres to unit. Pol was found stating DNR/Comfort measures only, but different last name. Co-gaurdian contact by ; new orders for DNR and to stop transcutaneous pacing, Daughter is on the way from [place]. Transcutaneous pacing stopped. Pt continues to have pauses, will continue to monitor. Notified primary MD. Palleative care consulted, will meet with ramseyyl once they arrive. Will continue to monitior.
--- NOTE | 2023-11-24 10:44 | NUR ---
Per Dr Sprague, transcutaneous pacing stopped. Pt continues to have pauses. New DNR to match polst; verified and placed DNR band. Notified primary MD. Palleative care consulted, will meet with famiyl once they arrive. Will continue to monitior.
--- NOTE | 2023-11-24 11:28 | NUR ---
UPDATE RE: GUARDIAN GLORIA THANH ABLE TO GET IN TOUCH WITH HIM; HIS OFFICE IS IN [place]. HE SENT THE UPDATED GUARDIANSHIP PAPERWORK-NOW ON CHART. CONNECTED GLORIA WITH OUR ETHICS DIRECTOR. GLORIA AND JESSICA DETERMINED THAT THERE WILL BE NO CHANGE TO CURRENT PLAN OF CARE-NO PLAN FOR PACEMAKER. PRIMARY RN HARRIS Alex UPDATED.
--- NOTE | 2023-11-24 14:29 | NUR ---
1330 Strap Machine Operator Automatic Roby and Dr Sprague discussed code status and pacemaker placement, plans to continue with DNR but move forward with pacemaker. Using transcutaneous pacing PRN for prolonged pauses. 1430 - patient taken to aquatic life laborer for transvenous pacer placement.
--- NOTE | 2023-11-24 17:18 | NUR ---
Shift Summary Pt to ear mold laboratory technician for transvenous pacemaker, back to room at approx 1545; 50/5/2, 65 cm inserted. Right groin site c/d/i; no bruising, bleeding or hematoma noted. Educated family on activity restrictions and discussed post pacemaker placement/home instructions with caregiver Kaycee. Tele sinus with pac/pvc and occasionally paced. Other vss. No other acute changes noted. Will continue to monitor. Will continue to montior.
--- NOTE | 2023-11-24 18:21 | NUR ---
Pt desaturated down to 48%; appears to not be breathing; place o2 and attempted to wake up; resp rate 9-15; titrated down to 2l o2 via nc. Notified MD; new orders for CPAP. Will continue to monitor.
--- NOTE | 2023-11-24 19:00 | NUR ---
ASSUMED CARE ASSUMED CARE OF PATIENT. RESTING QUIETLY. SQUEEZES EYES SHUT WHEN ASKED TO OPEN THEM. STIFFENS EXTREMITIES WHEN TOUCHED. OCCASIONAL SOFT WORD NOTED, BUT IS DIFFICULT TO UNDERSTAND. NOT FOLLOWING ANY COMMANDS AT THIS TIME. MONITOR SHOWS NSR, RATE 60s. NO PACED BEATS NOTED AT THIS TIME. PACER TO RIGHT GROIN- 65CM. SET AT 50/5/2. GROIN SITE IS STABLE- NO BLEEDING, NO HEMATOMA. BP STABLE. RESPIRATIONS ARE SHALLOW, RATE 12-14. PT WILL TAKE A DEEP BREATH WHEN ENCOURAGED. BIPAP ON- SEE RT DOCUMENTATION. NPO AT THIS TIME D/T ASPIRATION RISK. BRUNER PATENT AND DRAINING TO GRAVITY. NS INFUSING AT 150MLS/HR PER ORDER. SEE SHIFT ASSESSMENT FOR FULL ASSESSMENT.
[2023-11-25] VITALS (17 sets, daily range): BP systolic 105–188; BP diastolic 47–820
[2023-11-25 04:07] LABS: BASOPHILS ABSOLUTE AUTO 0.02 K/mm3 (0.00-0.23); BASOPHILS PERCENT AUTO 0 % (0-2); EOSINOPHILS ABSOLUTE AUTO 0.04 K/mm3 (0.00-0.68); EOSINOPHILS PERCENT AUTO 1 % (0-6); Hematocrit 30.7 % (33.0-51.0); IMMATURE GRAN ABSOLUTE AUTO 0.04 K/mm3 (0.00-0.10); IMMATURE GRAN PERCENT AUTO 1 % (0-1); LYMPHOCYTES ABSOLUTE AUTO 2.12 K/mm3 (0.84-5.20); LYMPHOCYTES PERCENT AUTO 26 % (21-46); MONOCYTES ABSOLUTE AUTO 0.83 K/mm3 (0.16-1.47); MONOCYTES PERCENT AUTO 10 % (4-13); Mean Corpuscular HGB 29.6 pg (26.0-34.0); Mean Corpuscular HGB Conc 32.6 g/dL (31.5-36.5); Mean Corpuscular Volume 91 fL (80-100); Mean Platelet Volume 9.8 fL (9.1-12.4); NEUTROPHILS ABSOLUTE AUTO 5.22 K/mm3 (1.96-9.15); NEUTROPHILS PERCENT AUTO 63 % (41-73); Platelet Count 143 K/mm3 (150-400); RDW Coefficient Variation 12.9 % (11.7-14.2); RDW Standard Deviation 42.5 fL (35.1-46.3); Red Blood Cell Count 3.38 M/mm3 (3.80-5.20); White Blood Cell Count 8.27 K/mm3 (4.00-11.30)
[2023-11-25 04:21] LABS: Bun/Creatinine Ratio 48.5 (12.0-20.0); Calcium, Blood 9.7 mg/dL (8.5-10.1); Creatinine, Blood 0.72 mg/dL (0.40-1.00); Potassium, Blood 3.7 mmol/L (3.5-5.5)
--- NOTE | 2023-11-25 06:07 | NUR ---
SHIFT SUMMARY NO ACUTE CHANGES DURING NOC. PT CONTINUES TO REST WHEN UNDISTURBED. ROUSES TO STIMULI BUT CONTINUES WITH DECREASED INTERACTION/RESPONSIVENESS. OCCASIONALLY WILL MUMBLE WORDS. MOVES EXTREMITIES WEAKLY, BUT DOES NOT FOLLOW COMMANDS. MONITOR SHOWS SB-SR, RATE 50s-60s. OCCASIONAL PACED BEATS NOTED. BP STABLE. AFEBRILE. REMAINS ON BIPAP. SHALLOW RESPIRATIONS CONTINUE. APNEIC PERIODS NOTED WHEN BIPAP MASK IS OFF. RIGHT FEMORAL TRANSVENOUS PACER SITE IS CLEAR WITH DRSG C/D/I. PACER SETTINGS 50/5/2. INSERTION 65CM. NPO D/T ASPIRATION RISK WELL IN PREPARATION FOR POSSIBLE PACEMAKER PLACEMENT. NS INFUSING AT 150MLS/HR- THIRD LITER. SP CATHETER PATENT AND DRAINING TO GRAVITY. WILL REPORT TO ONCOMING RN WHEN AVAILABLE.
--- NOTE | 2023-11-25 07:15 | NUR ---
ASSUMED CARE BEDSIDE REPORT RECIEVED. PT RESTING QUIETLY, ON CPAP. TRANSVENOUS PACER IN PLACE. VSS. PT TAKEN TO SCIENTIFIC ARTIST AT THIS TIME FOR PERMANENT PACER PLACEMENT.
--- NOTE | 2023-11-25 09:51 | NUR ---
RETURN FROM [facility] PT RETURNED TO ICU ROOM S/P PACEMAKER PLACEMENT AT 0940. PT IS RESTING QUIETLY, DOES NOT ANSWER QUESTIONS OR AWAKEN TO VERBAL STIMULI. VITAL SIGNS STABLE. PACER CAPTURE NOTED ON MONITOR. PRESSURE DRESSING TO LEFT UPPER CHEST INTACT. OPSITE DRESSING TO RIGHT FEMORAL SITE C/D/I S/P TV PACER REMOVAL. PT ON ROOM AIR. NS RESTARTED AT 150 ML/HR. WILL APPLY SLING PER DR SAM ORDERS.
--- NOTE | 2023-11-25 16:37 | NUR ---
SHIFT SUMMARY PT HAS SLEPT OFF AND ON THROUGHOUT THE SHIFT. WHEN AWAKE, PT ONLY SPEAKS TO CAREGIVER AT TIMES. VITAL SIGNS HAVE REMAINED STABLE S/P PACER PLACEMENT. DRESSING TO LEFT UPPER CHEST C/D/I AND LEFT ARM SLING IN PLACE. PT REMAINS ON ROOM AIR. IV'S SALINE LOCKED. PT TAKING PO INTAKE WITH ASSISTANCE OF CAREGIVER. SUPRAPUBIC BRUNER REMAINS IN PLACE WITH YELLOW URINE OUTPUT NOTED. PT TO BE TRANSFERED TO PCU 4 THIS EVENING. WILL CONTINUE TO MONITOR AND REPORT OFF TO RN TO ASSUME CARE.
--- NOTE | 2023-11-25 17:00 | NUR ---
PT ARRIVED TO PCU04 VIA BED FROM ICU. REPORT RECEIVED FROM AUDIE SALINAS. PT TRANSFERED TO PCU BED VIA LIFT. SEE DOCUMENTED VS. PT RESTING WITH EYES CLOSED, RESPIRATIONS EVEN AND UNLABORED. PACEMAKER SITE TO L UPPER CHEST IS C/D/I WITH PRESSURE DRESSING IN PLACE. HR 63 WITH OCCASIONAL RUNS OF V PACED BEATS ON TELEMETRY. PTs AFFECT IS FLAT AND WITHDRAWN, DID NOT ANSWER QUESTIONS, BUT DID RESPOND TO REPOSITIONING. PER REPORT, THIS HAS BEEN HER BASELINE WITH STAFF. SP CATHETER PRESENT, DRAINING CLEAR YELLOW URINE TO GRAVITY. ATTEMPTED TO ORIENT PT TO ROOM AND CALL LIGHT, BUT SHE DID NOT VERBALIZE UNDERSTANDING. BED ALARM ON FOR SAFETY. CALL LIGHT IN REACH. WILL CONTINUE TO MONITOR AND GIVE REPORT TO ONCOMING SHIFT RN.
[2023-11-26 00:29] VITALS: BP 137/62
[2023-11-26 03:54] VITALS: BP 127/63
--- NOTE | 2023-11-26 05:46 | NUR ---
SHIFT SUMMARY ASSUMED CARE OF PT AT 1900. UNABLE TO ASSESS ORIENTATION DUE TO PT BEING LETHARGIC. PT OPENED EYES ONCE THIS SHIFT WHEN BEING CHANGED AND WENT BACK TO SLEEP. HEART SOUNDS HAVE MURMUR. PACER SITE C/D/I. PULSES STRNOG BILATERAL ARMS. PT WAS SR WITH SOME PACER SPIKES. LUNG SOUNDS ARE DIMINISHED. PT WORE CPAP T/O THE NOC. PT HAD SUPRAPUBIC CATH DRAINING WITH GRAVITY. PT HAD BRUSING T/O. PT TURNED Q2. MEPILEX ON COCCYX. HAD DISCOLORED COCCYX BUT BLANCHABLE AND SMALL AMOUNT OF BLEEDING. PY SLEPT T/O THE NOC.
[2023-11-26 05:54] LABS: BASOPHILS ABSOLUTE AUTO 0.04 K/mm3 (0.00-0.23); BASOPHILS PERCENT AUTO 0 % (0-2); EOSINOPHILS ABSOLUTE AUTO 0.09 K/mm3 (0.00-0.68); EOSINOPHILS PERCENT AUTO 1 % (0-6); Hematocrit 30.3 % (33.0-51.0); Hemoglobin 10.1 g/dL (11.5-16.0); IMMATURE GRAN ABSOLUTE AUTO 0.05 K/mm3 (0.00-0.10); IMMATURE GRAN PERCENT AUTO 1 % (0-1); LYMPHOCYTES PERCENT AUTO 22 % (21-46); MONOCYTES PERCENT AUTO 7 % (4-13); Mean Corpuscular HGB 30.3 pg (26.0-34.0); Mean Corpuscular HGB Conc 33.3 g/dL (31.5-36.5); Mean Corpuscular Volume 91 fL (80-100); Mean Platelet Volume 10.1 fL (9.1-12.4); NEUTROPHILS PERCENT AUTO 69 % (41-73); Platelet Count 137 K/mm3 (150-400); RDW Coefficient Variation 13.1 % (11.7-14.2); RDW Standard Deviation 43.2 fL (35.1-46.3); Red Blood Cell Count 3.33 M/mm3 (3.80-5.20); White Blood Cell Count 9.98 K/mm3 (4.00-11.30)
[2023-11-26 06:22] LABS: Bun/Creatinine Ratio 36.6 (12.0-20.0); Calcium, Blood 9.6 mg/dL (8.5-10.1); Creatinine, Blood 0.87 mg/dL (0.40-1.00); Potassium, Blood 3.7 mmol/L (3.5-5.5)
[2023-11-26 08:04] VITALS: BP 153/63
[2023-11-26 11:33] VITALS: BP 133/60
--- NOTE | 2023-11-26 12:16 | NUR ---
AM NOTE: PATIENT OCCASIONALLY OPENING EYES WHEN TURNING. NOT RESPONSIVE TO THIS RN DURING AM ASSESSMENT. MOVING UPPER EXTREMITIES VERY SLOWLY AND LIMITED ROM. LEFT ARM IN SLING, S/P PACER WITH DRESSING THAT IS C/D/I. PER CAREGIVERS AT BEDSIDE PATIENT AT BASELINE KEEPS EYES CLOSED AND VERY MINIMALLY WILL RESPOND VERBALLY. ON TELE SHOWING SINUS PACED WITH HR 60-70'S. BP STABLE. PPP. EDEMA NOTED IN RIGHT HAND. SCD'S IN PLACE. DR. SAM IN THIS AM WITH [facility] NURSE TO ASSES PACER. PRESSURE DRESSING REMOVED BY DR. SAM. CAREGIVERS AT BEDSIDE FOR PROVIDER ROUNDING. POST PACER INSTRUCTIONS DISCUSSED AND PACKET GIVEN TO CAREGIVERS. ON ROOM AIR SATING ABOVE 95%. PATIENT WEARING CPAP OVERNIGHT. PROTECTION MGR IN TO DISCUSS OUTPT/HOME SLEEP STUDY WITH ROBINSON. PROTECTION MGR TO SET THAT UP. EVEN AND UNLABORED RESPIRATIONS. LUNGS SOUNDING CLEAR AND DIM. NO COUGH NOTED. BOWEL TONES PRESENT. CHRONIC SP BRUNER CATH IN PLACE DRAINING CLEAR/YELLOW URINE. ATTENDS IN PLACE WELL MEPILEX COVERING COCCYX. MEPILEX CHANGED THIS AM WITH SMALL OPEN WOUND TO LEFT BUTTOCK, CAREGIVERS PRESENT FOR MEPILEX CHANGE AND STATED THAT WOUND STARTED AT HOME. CLEANED, CREAM APPLIED AND NEW MEPILEX IN PLACE. Q2 TURNING AND NEEDED. EATING VERY SMALL AMOUNTS. DRINKING WATER, NO SWALLOWING ISSUES NOTED. FEEDER. SKIN OVERALL SCATTERED BRUISING AND SCARING. LEFT CHEST WALL S/P WNL. SKIN PALE AND FRAGILE THROUGHOUT. CAREGIVERS REMAIN AT BEDSIDE. PLAN FOR DISCHARGE TODAY.
[2023-11-26] MEDS ORDERED: LEVOFLOXACIN750 MG PO (12:47)
--- NOTE | 2023-11-26 13:09 | NUR ---
MET WITH PATIENT AND CAREGIVERS. I REVIEWED AND DISCUSSED POLT WITH THE CAREGIVERS. LEONARDA WAS RESTING AND DID NOT OPEN HER EYES WHEN BEING ADDRESSED. CAREGIVER GABE REPORTED THAT LEONARDA WILL SOMETIMES "PLAY OPOSSUM". I CALLED GLORIA HER GUARDIAN TO REVIEW POLST WITH HIM AND LEFT MESSAGE. I DISCUSSED LEONARDA WITH NIKOLAI FROM CASE MANAGMENT AND UPDATED HER ON MY PROGRESS WITH PATIENTS POLST. SHE WILL UPDATE ME IF THE PATIENT DISCHARGES TODAY.
--- NOTE | 2023-11-26 14:35 | NUR ---
DISCHARGE: PLAN FOR TRANSFER HOME AT 1500 BY FADIA. BOTH CAREGIVERS AT BEDSIDE, THIS RN REVIEWED ALL DISCHARGE INSTRUCTIONS WITH CAREGIVERS AND PATIENT. THIS RN DISCUSSED NEW PACER, PACER PRECAUTIONS, PACER CARD, PACER WOUND AND CLINIC APPOINTMENT, PCP FOLLOW UP, NEW MEDICATIONS, HOME HEALTH, [facility] SLEEP STUDY, SIGNS AND SYMPTOMS OF WHEN TO RETURN, NO ANTICOAGS AND KEEPING PACER SITE CLEAN AND DRY. PALLIATIVE CARE IN TO FINISH POLST WITH CAREGIVERS AND GUARDIAN GLORIA OVER THE PHONE. NO ACUTE CHANGES, IV'S REMOVED WNL. POLST SENT HOME WITH PATIENT ALONG WITH OTHER DISCHARGE INSTRUCTIONS AND PACER PACKET/CARD
== END 2023-11-26 15:48 | disposition home health service (06) | DRG 242 ==
LOC: ER 16:30 → PCU 22:09 → ICUE 22:09 → PCU 11-25 16:55
PROVIDERS: Family Medicine; Student in an Organized Health Care Education/Training Program; ADMIT Student in an Organized Health Care Education/Training Program
PROC: 02HK3JZ Insertion of Pacemaker Lead into Right Ventricle, Percutaneous Approach (ICD-10-PCS; 2023-11-24)
PROC: 5A09357 Assistance with Respiratory Ventilation, Less than 24 Consecutive Hours, Continuous Positive Airway Pressure (ICD-10-PCS; 2023-11-24)
PROC: 5A1223Z Performance of Cardiac Pacing, Continuous (ICD-10-PCS; 2023-11-24)
PROC: 0JH604Z Insertion of Pacemaker, Single Chamber into Chest Subcutaneous Tissue and Fascia, Open Approach (ICD-10-PCS; principal; 2023-11-25)
PROC: 02PA3MZ Removal of Cardiac Lead from Heart, Percutaneous Approach (ICD-10-PCS; 2023-11-25)
PROC: 02HK3JZ Insertion of Pacemaker Lead into Right Ventricle, Percutaneous Approach (ICD-10-PCS; 2023-11-25)
PROC: 4B02XSZ Measurement of Cardiac Pacemaker, External Approach (ICD-10-PCS; 2023-11-26)
DX: I49.5 Sick sinus syndrome (principal); I46.9 Cardiac arrest, cause unspecified; N39.0 Urinary tract infection, site not specified; I45.5 Other specified heart block; D64.9 Anemia, unspecified; D69.6 Thrombocytopenia, unspecified; E11.9 Type 2 diabetes mellitus without complications; Z66 Do not resuscitate; I10 Essential (primary) hypertension; N31.9 Neuromuscular dysfunction of bladder, unspecified; J44.9 Chronic obstructive pulmonary disease, unspecified; I45.10 Unspecified right bundle-branch block; I35.0 Nonrheumatic aortic (valve) stenosis; F03.C0 Unspecified dementia, severe, without behavioral disturbance, psychotic disturbance, mood disturbance, and anxiety; G47.30 Sleep apnea, unspecified; E83.52 Hypercalcemia; Z86.73 Personal history of transient ischemic attack (TIA), and cerebral infarction without residual deficits; Z88.1 Allergy status to other antibiotic agents; Z88.8 Allergy status to other drugs, medicaments and biological substances; Z79.4 Long term (current) use of insulin; Z98.1 Arthrodesis status; Z87.891 Personal history of nicotine dependence
CPT/HCPCS: 33207; 33210; 36415; 51702; 71045; 76937; 80047; 80048; 80053; 81001; 82306; 82947; 83036; 83735; 83970; 84443; 84484; 85014; 85025; 87077; 87086; 87186; 93005; 93010; 93279; 94660; 94762; 96365; 99152; 99153; 99285-25; A9270; C1786; C1894; C1898; J1644; J1815; J1956; J2250; J3010; J3370; J7030; J7040; J7050

== ENCOUNTER 2024-01-07 16:28 | Emergency (ER) | payer MEDICARE, OTHER ==
[~2024-01-07] VITALS: Ht 160 cm; Wt 72.6 kg
[~2024-01-07 16:28] MED LIST changes: +LEVOFLOXACIN750 MG PO
[2024-01-07 17:19] LABS: BASOPHILS ABSOLUTE AUTO 0.04 K/mm3 (0.00-0.23); BASOPHILS PERCENT AUTO 0 % (0-2); EOSINOPHILS ABSOLUTE AUTO 0.01 K/mm3 (0.00-0.68); EOSINOPHILS PERCENT AUTO 0 % (0-6); Hematocrit 33.6 % (33.0-51.0); Hemoglobin 10.6 g/dL (11.5-16.0); IMMATURE GRAN ABSOLUTE AUTO 0.05 K/mm3 (0.00-0.10); IMMATURE GRAN PERCENT AUTO 1 % (0-1); LYMPHOCYTES ABSOLUTE AUTO 1.64 K/mm3 (0.84-5.20); LYMPHOCYTES PERCENT AUTO 15 % (21-46); MONOCYTES PERCENT AUTO 15 % (4-13); Mean Corpuscular HGB Conc 31.5 g/dL (31.5-36.5); Mean Corpuscular Volume 92 fL (80-100); Mean Platelet Volume 10.5 fL (9.1-12.4); NEUTROPHILS ABSOLUTE AUTO 7.47 K/mm3 (1.96-9.15); NEUTROPHILS PERCENT AUTO 69 % (41-73); Platelet Count 130 K/mm3 (150-400); RDW Standard Deviation 47.2 fL (35.1-46.3); Red Blood Cell Count 3.66 M/mm3 (3.80-5.20); White Blood Cell Count 10.81 K/mm3 (4.00-11.30)
[2024-01-07 17:37] LABS: Magnesium, Blood 2.1 mg/dL (1.6-2.4)
[2024-01-07 17:46] LABS: Albumin, Blood 2.9 g/dL (3.4-5.0); Albumin/Globulin Ratio 0.7 (0.8-1.8); Bilirubin, Total 0.4 mg/dL (0.1-1.0); Bun/Creatinine Ratio 56.2 (12.0-20.0); Calcium, Blood 10.2 mg/dL (8.5-10.1); Creatinine, Blood 0.82 mg/dL (0.40-1.00); Globulin, Blood 4.2 g/dL (2.2-4.0); Potassium, Blood 4.4 mmol/L (3.5-5.5); Thyroid Stimulating Hormone 2.35 uIU/mL (0.360-4.800); Total Protein, Blood 7.1 g/dL (6.4-8.2)
[2024-01-07 18:27] LABS: Source, Urine Suprapubic Cath
[2024-01-07 18:32] LABS: Appearance, Urine Hazy (Clear); Bilirubin, Urine Neg (Neg); Blood, Urine 1+ (Neg); Color, Urine Yellow (P-Yellow); Glucose Qualitative, Urine 2+ (Neg); Ketones, Urine Neg (Neg); Leukocyte Esterase, Urine 2+ (Neg); Nitrite, Urine Pos (Neg); Protein, Urine 3+ (Neg); Specific Gravity, Urine 1.015 (1.003-1.022); Urobilinogen, Urine NORM (Normal)
[2024-01-07 18:51] LABS: Bacteria Many /hpf; Red Blood Cells, Urine 0-2 /hpf (0-2); Squamous Epithelial Cells Not Seen /hpf (Few)
[2024-01-07] MEDS ORDERED: CefTRIAXone Sodium 1,000 MG in NS 50 ML IV ONE (19:10)
[2024-01-07] MEDS ORDERED: CEFD300 PO (19:31)
[2024-01-07] MEDS ORDERED: NS 1,000 ML IV SCH ×2 (19:55)
[2024-01-07 21:30] VITALS: BP 136/56
== END 2024-01-07 21:40 | disposition home or self-care (01) ==
LOC: ER 16:28
PROVIDERS: Emergency Medicine
DX: N39.0 Urinary tract infection, site not specified (principal); D68.9 Coagulation defect, unspecified; Z88.0 Allergy status to penicillin; Z88.1 Allergy status to other antibiotic agents; Z79.899 Other long term (current) drug therapy; Z79.4 Long term (current) use of insulin; E11.9 Type 2 diabetes mellitus without complications; I10 Essential (primary) hypertension; G47.30 Sleep apnea, unspecified
CPT/HCPCS: 71045; 80053; 81001; 82947; 83735; 84443; 85025; J0696; J7030